=== PATIENT | female | born 1935 | race Caucasian/White ===

== ENCOUNTER 2023-09-20 10:28 | Emergency (ER) | payer MEDICARE, SELFPAY ==
[2023-09-20 10:35] VITALS: BP 144/99; PULSE 89; O2SAT 97
--- NOTE | 2023-09-20 10:37 | XR_ITS ---
FINAL REPORT CLINICAL HISTORY: Fall COMPARISON: None FINDINGS: No acute pulmonary opacity is present. There is no evidence of effusion or pneumothorax. Mediastinum is unremarkable. Heart size is normal. IMPRESSION: No acute abnormality. Reviewed, Interpreted and Dictated by Everette Nieves MD Transcribed by Ellen Dickerson Authenticated and [facility]
--- NOTE | 2023-09-20 10:37 | CT_ITS ---
FINAL REPORT TECHNIQUE: Axial images through the pelvis were performed by computed tomography. Sagittal and coronal reconstruction images were performed. This study was performed with techniques to keep radiation doses as low as reasonably achievable (ALARA). Individualized dose reduction techniques using automated exposure control or adjustment of mA and/or kV according to the patient's size were employed. CLINICAL HISTORY: Fall COMPARISON: None FINDINGS: CT PELVIS: No evidence of fracture is seen. There is mild degenerative change present in the hips bilaterally as well as in the sacroiliac joints. There are bilateral adnexal masses, larger on the left side than the right side. The left sided mass has a hyperdense component, measuring 6.7 x 3.8 cm in size. Would suggest follow-up with nonurgent ultrasound of the pelvis for further evaluation. IMPRESSION: No acute bony abnormality is identified. Bilateral adnexal masses as described, suggest follow-up with nonemergent ultrasound of the pelvis for further evaluation. Reviewed, Interpreted and Dictated by Everette Nivees MD Transcribed by Ellen Dickerson Authenticated and . [facility]
--- NOTE | 2023-09-20 10:37 | CT_ITS ---
FINAL REPORT TECHNIQUE: Axial images through the head/brain was performed by computed tomography. Sagittal and coronal reformatted images were obtained and reviewed. This study was performed with techniques to keep radiation doses as low as reasonably achievable (ALARA). Individualized dose reduction techniques using automated exposure control or adjustment of mA and/or kV according to the patient's size were employed. CLINICAL HISTORY: Fall FINDINGS: Moderate atrophy and chronic ischemic white matter changes are noted. No cortical edema is present. There is no mass or hemorrhage. Ventricles are normal. Bone windows show no skull fracture or obvious obstructive lesion. IMPRESSION: 1. No acute intracranial abnormality or obvious mass. 2. Atrophy and chronic ischemic white matter changes as above. Reviewed, Interpreted and Dictated by Everette Nieves MD Transcribed by Trena Phelps Authenticated and [facility]
--- NOTE | 2023-09-20 10:37 | XR_ITS ---
FINAL REPORT CLINICAL HISTORY: Fall COMPARISON: None FINDINGS: PELVIS: A single AP view of the pelvis fails to reveal any evidence of acute fracture or dislocation. There is mild degenerative change in the sacroiliac and bilateral hip joints. There is advanced degenerative change in the lower lumbar spine. IMPRESSION: No acute bony abnormality identified. Degenerative change as described. Reviewed, Interpreted and Dictated by Everette Nieves MD Transcribed by Ellen Dickerson Authenticated and [facility]
--- NOTE | 2023-09-20 10:37 | CT_ITS ---
FINAL REPORT TECHNIQUE: Thin section axial CT with sagittal reconstruction without contrast CLINICAL HISTORY: Fall COMPARISON: None FINDINGS: No fracture is seen. There is subluxation of C2 on C3 of approximately 3 mm. There is also subluxation of C7 on T1 of 4 mm. There is advanced degenerative disc disease present. No obvious bony spinal canal stenosis is present. IMPRESSION: There is no evidence of fracture. There is mild subluxation of C2 on C3 and C7 on T1, favor degenerative. If concern for ligamentous injury would suggest an MR with contrast. Reviewed, Interpreted and Dictated by Everette Nieves MD Transcribed by Ellen Dickerson Authenticated and [facility]
[2023-09-20 10:40] VITALS: BP 144/99; PULSE 93; RESP 20; TEMP 37.1; O2SAT 97; BMI 25.7
--- NOTE | 2023-09-20 10:47 | ED_ITS ---
Discharge Plan Disposition Patient Disposition: Home, Self-Care Condition: Good Chief Complaint: Fall Referrals Follow up/Referrals: Provider,Referral, MD [Primary Care Provider] - See instructions Clinical Impressions Clinical Impression: Fall Instructions Patient Instructions: How to Prevent Falls Discharge ED Provider: Yasmany March General Adult HPI General Chief complaint: Fall Stated complaint: had a fall at home 09/19 pain in right hip Time Seen by Provider: 09/20/23 10:32 Mode of Arrival: Wheelchair Source of Information: Patient and Relative Limitations: No Limitations Description of Symptoms (Recalled from ER Triage Doc. by RN): Patient presents to ED with pain from a fall that happened yesterday. Patient states she slipped outside and fell onto her right side. Patient is c/o of pain in her right groin/hip area and shoulder. Patient states she did hit her head. Denies LOC or headache. History of Present Illness HPI narrative: Patient has a PMHx significant for CAD on Plavix who presents to the ED with complaints of fall. Patient notes that yesterday, she was on her way to [employer] for group [employer] when while walking outside while carrying a basket, patient slipped and fell. Patient notes that she landed directly onto the right side of her body, taking most of the impact on her right hip. Patient notes that she also hit the right side of her head on the ground, negative LOC. Patient was able to get up without difficulty, but over the past 24 hours has had progressively worsening right hip pain. No changes in mental status, headaches. Patient also notes that she had pain in her right shoulder, but has been fully functional and able to lift her arms without issues. Related Data Allergies Allergy/AdvReac Type Severity Reaction Status Date / Time codeine Allergy Verified 09/20/23 10:49 meperidine Allergy Verified 09/20/23 10:49 Penicillins AdvReac Verified 09/20/23 10:49 red dye AdvReac Verified 09/20/23 10:49 sulfacetamide AdvReac Verified 09/20/23 10:49 PFSH [facility] Disclaimer: The information contained in this section may have been updated after the patient was seen, as this information can be updated by other users. Social History Smoking Status: Never smoker alcohol intake: never current occupational status: retired Travel in the last 8 weeks: None ROS Obtained: Yes All systems reviewed & no additional complaints except as documented Physical Exam General General appearance: alert and in no apparent distress Head Head exam: atraumatic, normocephalic and normal inspection Eye Eye exam: Present normal appearance, PERRL and EOMI; Absent scleral icterus or nystagmus ENT ENT exam: Present normal exam, mucous membranes moist and normal external ear exam Neck Neck exam: Present normal inspection, full ROM and trachea midline Chest Chest inspection: Present normal inspection and symmetric chest wall rise; Absent tenderness Respiratory Respiratory exam: Present normal lung sounds bilaterally; Absent respiratory distress, wheezes or accessory muscle use Cardiovascular Cardiovascular exam: Present regular rate, normal rhythm and normal heart sounds Abdominal Exam Abdominal exam: Present soft; Absent distention, tenderness, guarding, rebound, rigidity, trauma, ascites or pulsatile mass Extremities Exam Extremities exam: Present normal inspection, full ROM and tenderness (TTP R hip) Back Exam Back exam: Present normal inspection and full ROM; Absent tenderness Neurological Exam Neurological exam: Present alert, oriented X3 and normal gait; Absent motor sensory deficit Psychiatric Psychiatric exam: Present normal affect and normal mood Skin Skin exam: Present warm, dry and normal color Medical Decision Making Medical Records Medical records reviewed: Yes I reviewed the patient's medical records. Fermín Inquiry Pt receiving controlled substance: No Vital Signs: 09/20/23 10:40 09/20/23 10:35 09/20/23 12:01 Temperature 98.7 F Temperature Source Oral Pulse Rate 89 69 Pulse Rate [Right Radial] 93 H Respiratory Rate 20 Blood Pressure 144/99 H 126/65 Blood Pressure [Right Arm] 144/99 H Blood Pressure Mean [Right Arm] 114 Blood Pressure Source [Right Arm] Automatic Cuff Blood Pressure Position [Right Arm] Supine 02 Sat by Pulse Oximetry 97 97 97 Oxygen Delivery Method Room Air Room Air Room Air Lab Data Lab results reviewed: Yes I reviewed the patient's lab results. Orders (Tests/Meds): ORDERS Category Date Time Status CT bony pelvis Stat Cat Scan 09/20/23 10:[address] cervical spine wo con Stat Cat Scan 09/20/23 10:[address] head/brain wo con Stat Cat Scan 09/20/23 10:37 Completed CXR --portable [XR chest portable] Stat Exams 09/20/23 10:37 Completed XR pelvis 1-2V Stat Exams 09/20/23 10:37 Completed Medical Decision Narrative: In summary, Patient has a PMHx significant for CAD on Plavix who presents to the ED with complaints of fall. Patient notes that yesterday, she was on her way to [employer] for group [employer]iliting when while walking outside while carrying a basket, patient slipped and fell. Patient notes that she landed directly onto the right side of her body, taking most of the impact on her right hip. Patient notes that she also hit the right side of her head on the ground, negative LOC. Patient was able to get up without difficulty, but over the past 24 hours has had progressively worsening right hip pain. No changes in mental status, headaches. Patient also notes that she had pain in her right shoulder, but has been fully functional and able to lift her arms without issues. Patient was afebrile, hemodynamically stable, in no respiratory distress, and nontoxic in appearance upon arrival and throughout the entire stay in the ED. Physical examination was unremarkable aside from mild tenderness palpation along the right hip, including lungs CTAB, normal cardiac auscultation, benign abdominal exam with no focal TTP, and no acute neurological deficit. The DDx includes, but is not limited to, acute traumatic intracranial injury, acute traumatic cervical injury, acute traumatic pelvic injury. All of these have been considered, however ruling out the most morbid conditions drove my clinical assessment and thus the following laboratory and/or radiographic evaluation was conducted to the appropriate extent based on history and physical examination. X-ray/CT/US studies independently reviewed and interpreted by myself and notable for: - Chest XR was unremarkable for any signs of an acute pulmonary process, including pneumonia, ARDS, pleural effusion, pulmonary edema, pneumothorax, or pneumomediastinum. No obvious osseous injuries. -Pelvic x-ray was negative for any acute osseous injury - CT Head: No acute intracranial hemorrhage or fracture - CT Cervical Spine: No acute fracture or malalignment of the cervical spine. - CT bony pelvis was negative for any acute osseous injury of the pelvis At this time, given unremarkable workup and/or symptomatic relief, as well as the fact that patient continued to remain well-appearing, it was felt that the patient was safe to be discharged home. The patient/parents were comfortable and in agreement with this plan. Patient instructed to follow up with [employer]/PCP. The patient/parents were given strict return precautions prior to being discharged from the emergency department. All questions were answered. Yasmany March MD Emergency Medicine Critical Care Critical Care Time Critical Care Time: No
[2023-09-20 12:01] VITALS: BP 126/65; PULSE 69; O2SAT 97
[2023-09-20 13:00] VITALS: BP 127/57; PULSE 68; O2SAT 97
[2023-09-20 13:05] VITALS: BP 127/57; PULSE 67; RESP 18; TEMP 37.1; O2SAT 98
== END 2023-09-20 13:13 | disposition home or self-care (01) ==
PROVIDERS: Emergency Provider Emergency Medicine
DX: M25.551 Pain in right hip (principal); M25.512 Pain in left shoulder; R10.2 Pelvic and perineal pain; W01.0XXA Fall on same level from slipping, tripping and stumbling without subsequent striking against object, initial encounter
CPT/HCPCS: 70450; 71045; 72125; 72170; 72192; 99285

== ENCOUNTER 2024-01-16 09:21 | Emergency (ER) | payer MEDICARE, SELFPAY ==
--- NOTE | 2024-01-16 09:38 | XR_ITS ---
PROCEDURE INFORMATION: Exam: XR Chest Exam date and time: 01/16/2024 9:46 AM Age: 88 years old Clinical indication: Cough; Additional info: Cough, congestion TECHNIQUE: Imaging protocol: Radiologic exam of the chest. Views: 2 views. COMPARISON: CR XR CHEST PORTABLE 09/20/2023 10:59 AM FINDINGS: Lungs: Unremarkable. No consolidation. Pleural spaces: Unremarkable. No pleural effusion. No pneumothorax. Heart/Mediastinum: Unremarkable. No cardiomegaly. Bones/joints: Unremarkable. IMPRESSION: No acute findings.
[2024-01-16 09:45] VITALS: BP 136/89; PULSE 79; RESP 20; TEMP 36.6; O2SAT 98; BMI 26.2
--- NOTE | 2024-01-16 10:24 | EXP.UTC ---
Discharge Plan Disposition Patient Disposition: Home, Self-Care Condition: Good Prescriptions Prescriptions: New benzonatate 100 mg capsule 100 mg PO TID PRN (Reason: cough) Qty: 30 0RF guaifenesin [Mucinex] 600 mg tablet extended release 12hr 600 mg PO BID PRN (Reason: cough) Qty: 20 0RF prednisone 10 mg tablet 10 mg PO BID 5 Days Qty: 10 0RF doxycycline hyclate 100 mg capsule 100 mg PO BID 10 Days Qty: 20 0RF No Action fluconazole 100 mg tablet 100 mg PO DAILY atorvastatin 40 mg tablet 40 mg PO DAILY nystatin 100,000 unit/mL suspension 5 ml PO QID Patient Comments: SHAKE LIQUID AND TAKE 5 ML BY MOUTH FOUR TIMES DAILY FOR 10 DAYS. DISCARD REMAINDER cetirizine [Zyrtec] 10 mg Tablet 10 mg PO DAILY clopidogrel 75 mg tablet 75 mg PO DAILY amlodipine 5 mg tablet 5 mg PO DAILY pantoprazole 40 mg tablet,delayed release (DR/EC) 40 mg PO DAILY sertraline 25 mg tablet 25 mg PO DAILY mupirocin 2 % ointment 1 applic TOPICAL BID Patient Comments: APPLY TOPICALLY TO THE AFFECTED AREA TWICE DAILY NEEDED albuterol sulfate 90 mcg/actuation HFA aerosol inhaler 2 puff INHALATION Q4HP PRN (Reason: Wheezing) Patient Comments: INHALE 2 PUFFS BY MOUTH EVERY 4 HOURS NEEDED FOR WHEEZING OR SHORTNESS OF BREATH fluticasone propionate [Flovent HFA] 110 mcg/actuation HFA aerosol inhaler 1 puff INHALATION DAILY multivitamin Tablet 1 tab PO DAILY cyanocobalamin (vitamin B-12) [Vitamin B-12] 1,000 mcg Tablet 1,000 mcg PO DAILY fluticasone propionate [Flonase] 50 mcg/actuation [place],Suspension 1 spray INTRANASAL DAILY Rx Instructions: administer into each nostril albuterol sulfate 2.5 mg/0.5 mL Solution For Nebulization 2.5 mg INHALATION DAILYP PRN (Reason: SOA) Rx Instructions: for up to 3 doses cholecalciferol (vitamin D3) [Vitamin D3] 125 mcg (5,000 unit) Tablet 125 mcg PO WEEKLY Arnuity Ellipta 100 mcg/actuation blister with device 1 inh INHALATION DAILY Referrals Follow up/Referrals: Arin Contreras DO [Primary Care Provider] - See instructions Activity Restrictions/Add. Instructions Additional Instructions/Restrictions: Start antibiotic today. Be sure to complete entire prescription even if feeling better Monitor temp. Tylenol every 4 hours as needed and / or ibuprofen every 6 hours as needed ( As long as your primary care physician has told you that it ok to take both. For fever/aches/pains ER if no less than 101 despite Tylenol or Motrin Humidifier/vaporizer or hot steamy shower Inhaler every 4-6 hours as needed like we discussed. If unsure how to use it, ask pharmacist to demonstrate how. Should help open airways and improve cough, wheezing, and shortness of breath Mucinex during the day for your cough and cough suppressant only at night. Be sure to drink lots of water. *Tessalon Perles will not cause drowsiness but use at bedtime to help stop cough so that you may get some rest. *Start steroid today. Helps with inflammation therefore, cough and wheezing. Follow directions on the package. Reviewed side effects. Patient reports taking them before. Follow up IMMEDIATELY for new or worsening of symptoms OR no noticeable improvement over the next 48-72 hours. 911 immediately for any life threatening symptoms such as chest pain or difficulty breathing Clinical Impressions Clinical Impression: Bronchitis Sinusitis Qualifiers: Sinusitis location: unspecified location Chronicity: unspecified Qualified Code(s): J32.9 - Chronic sinusitis, unspecified Instructions Patient Instructions: DI for Sinusitis, Sinusitis, Acute Bronchitis Discharge ED Provider: Sasha [place] [facility] [place] General Stated complaint: cough, crackling whil breathing Mode of Arrival: Ambulatory Source of Information: Patient Limitations: No Limitations Time Seen by Provider: 01/16/24 10:30 Description of Symptoms (Recalled from Triage Doc. by RN): PATIENT C/O CONGESTION, PRODUCTIVE COUGH, AND FATIGUE X 3-4 WEEKS BUT HAS GOTTEN WORSE HEENT Symptoms (Recalled from RN notes): Yes Resp Symptoms (Recalled from RN notes): Yes Skin Symptoms (Recalled from RN notes): No MS Symptoms (Recalled from RN notes): No Functional Status (Recalled from RN notes): WNL History of Present Illness Provider Complaint: Daughter states that she has had a bad deep cough for several weeks and she has a hx of pneumonia States that she went to urgent care last week and they treated her for thrush but didnt do anything about her cough or chest congestion and it has not got any better her cough is sounding worse so today they brought her in to get her checked Related Data Home Medications Medication Instructions Recorded Confirmed albuterol sulfate 2.5 mg/0.5 mL 2.5 mg inhalation DAILYP PRN SOA 01/16/24 01/16/24 solution for nebulization albuterol sulfate 90 mcg/actuation 2 puff inhalation Q4HP PRN Wheezing 01/16/24 01/16/24 aerosol inhaler amlodipine 5 mg tablet 5 mg PO DAILY 01/16/24 01/16/24 atorvastatin 40 mg tablet 40 mg PO DAILY 01/16/24 01/16/24 cetirizine 10 mg tablet (Zyrtec) 10 mg PO DAILY 01/16/24 01/16/24 cholecalciferol (vitamin D3) 125 125 mcg PO WEEKLY 01/16/24 01/16/24 mcg (5,000 unit) tablet (Vitamin D3) clopidogrel 75 mg tablet 75 mg PO DAILY 01/16/24 01/16/24 cyanocobalamin (vitamin B-12) 1,000 mcg PO DAILY 01/16/24 01/16/24 1,000 mcg tablet (Vitamin B-12) fluconazole 100 mg tablet 100 mg PO DAILY 01/16/24 01/16/24 fluticasone furoate 100 1 inh inhalation DAILY 01/16/24 01/16/24 mcg/actuation blister powder for inhalation (Arnuity Ellipta) fluticasone propionate 110 1 puff inhalation DAILY 01/16/24 01/16/24 mcg/actuation HFA aerosol inhaler fluticasone propionate 50 1 spray intranasal DAILY 01/16/24 01/16/24 mcg/actuation nasal spray,suspension multivitamin 1 tab PO DAILY 01/16/24 01/16/24 mupirocin 2 % topical ointment 1 applic topical BID 01/16/24 01/16/24 nystatin 100,000 unit/mL oral 5 ml PO QID 01/16/24 01/16/24 suspension pantoprazole 40 mg tablet,delayed 40 mg PO DAILY 01/16/24 01/16/24 release sertraline 25 mg tablet 25 mg PO DAILY 01/16/24 01/16/24 Previous Rx's Medication Instructions Recorded benzonatate 100 mg capsule 100 mg PO TID PRN cough #30 caps 01/16/24 doxycycline hyclate 100 mg capsule 100 mg PO BID 10 days #20 caps 01/16/24 guaifenesin 600 mg tablet, 600 mg PO BID PRN cough #20 tabs 01/16/24 extended release 12 hr (Mucinex) prednisone 10 mg tablet 10 mg PO BID 5 days #10 tabs 01/16/24 Allergies Allergy/AdvReac Type Severity Reaction Status Date / Time codeine Allergy Verified 09/20/23 10:49 meperidine Allergy Verified 09/20/23 10:49 Penicillins AdvReac Verified 09/20/23 10:49 red dye AdvReac Verified 09/20/23 10:49 sulfacetamide AdvReac Verified 09/20/23 10:49 Worker's Comp Is this a Worker's Comp case?: No [facility] Disclaimer: The information contained in this section may have been updated after the patient was seen, as this information can be updated by other users. Medical History (Updated 01/16/24 @ 11:05 by Sasha Carey APRN) Anxiety Urinary tract infection History of gastroesophageal reflux (GERD) Migraine History of anemia Asthma History of heart attack Hyperlipidemia Hypertension Social History (Updated 09/20/23 @ 13:05 by Yasmany March MD) Smoking Status: Never smoker alcohol intake: never current occupational status: retired Travel in the last 8 weeks: None ROS Obtained: Yes All systems reviewed & no additional complaints except as documented and Yes Systems reviewed as appropriate & no additional complaints except as documented Constitutional Constitutional: Reports system reviewed and no additional complaints, except as documented, Reports as per HPI, Reports fatigue and Reports headache(s) ENT Ears, Nose, Mouth, and Throat: Reports system reviewed and no additional complaints, except as documented, Reports as per HPI, Reports headache(s), Reports nasal congestion and Reports sinus pressure Cardiovascular Cardiovascular: Reports system reviewed and no additional complaints, except as documented and Reports as per HPI Respiratory Respiratory: Reports system reviewed and no additional complaints, except as documented, Reports as per HPI, Denies shortness of breath, Reports chest congestion and Reports cough Gastrointestinal Gastrointestingal: Reports system reviewed and no additional complaints, except as documented and as per HPI Neurologic Neurologic: Reports headache(s) Endocrine Endocrine: Reports fatigue Physical Exam General General appearance: alert and in no apparent distress ENT ENT exam: Present mucous membranes moist Expanded ENT Exam Nose exam: Present sinus tenderness Respiratory Respiratory exam: Present normal lung sounds bilaterally and other (mild rhonchi right clears with cough); Absent respiratory distress or wheezes Cardiovascular Cardiovascular exam: Present regular rate, normal rhythm and normal heart sounds Neurological Exam Neurological exam: Present alert, oriented X3 and motor sensory deficit Medical Decision Making Fermín Inquiry Pt receiving controlled substance: No Fermín was queried for this patient: No Vital Signs: 01/16/24 09:45 Temperature 97.9 F Temperature Source Oral Pulse Rate [Left Brachial] 79 Respiratory Rate 20 Blood Pressure [Left Arm] 136/89 Blood Pressure Mean [Left Arm] 104 Blood Pressure Source [Left Arm] Automatic Cuff Blood Pressure Position [Left Arm] Sitting 02 Sat by Pulse Oximetry 98 Oxygen Delivery Method Room Air Orders (Tests/Meds): ORDERS Category Date Time Status Chest XR 2 view (NOT portable) [XR chest 2V] Stat Exams 01/16/24 09:38 Taken Radiology Data #1: Image(s): Chest Image Reviewed: Yes I have reviewed radiologist's interpretation FINDINGS: Lungs: Unremarkable. No consolidation. Pleural spaces: Unremarkable. No pleural effusion. No pneumothorax. Heart/Mediastinum: Unremarkable. No cardiomegaly. Bones/joints: Unremarkable. IMPRESSION: No acute findings. Medical Decision Narrative: Patient states that she has taken doxy and prednisone in the past without complications or reactions
[2024-01-16 11:09] VITALS: BP 136/89; PULSE 79; RESP 20; TEMP 36.6; O2SAT 98
== END 2024-01-16 11:12 | disposition home or self-care (01) ==
PROVIDERS: Emergency Provider Nurse Practitioner; PCP Internal Medicine
DX: J20.9 Acute bronchitis, unspecified (principal); J01.90 Acute sinusitis, unspecified; R06.89 Other abnormalities of breathing; R05.9 Cough, unspecified; R53.83 Other fatigue
CPT/HCPCS: 71046; 99204; 99212; G0463

== ENCOUNTER 2024-04-07 11:35 | Emergency (ER) | payer MEDICARE, SELFPAY ==
[2024-04-07] VITALS (7 sets, daily range): BP systolic 123–146; BP diastolic 59–66; PULSE 75–81; RESP 14–23; TEMP 36.6–36.9; O2SAT 96–98; BMI 26.2
--- NOTE | 2024-04-07 11:33 | ECG_ITS ---
APPROVED REPORT Exam: Resting ECG HR:76 bpm ECG Measurements Heart Rate 76 AXES SC 153 P 47 QRSd 77 QRS 3 QT 362 T 18 QTc 392 Conclusion SINUS RHYTHM ANTERIOR MYOCARDIAL INFARCTION , OF INDETERMINATE AGE [40+ ms Q WAVE AND/OR ST/T ABNORMALITY IN V3/V4] ABNORMAL ECG Electronically signed by : LUCY RODRIGUEZ, 04/07/2024 15:38:57
--- NOTE | 2024-04-07 11:39 | HMH.EDGENADL ---
Discharge Plan Disposition Patient Disposition: Home, Self-Care Condition: Good Prescriptions Prescriptions: New cefdinir 300 mg capsule 300 mg PO BID 10 Days Qty: 20 0RF No Action fluconazole 100 mg tablet 100 mg PO DAILY atorvastatin 40 mg tablet 40 mg PO DAILY nystatin 100,000 unit/mL suspension 5 ml PO QID Patient Comments: SHAKE LIQUID AND TAKE 5 ML BY MOUTH FOUR TIMES DAILY FOR 10 DAYS. DISCARD REMAINDER cetirizine [Zyrtec] 10 mg Tablet 10 mg PO DAILY clopidogrel 75 mg tablet 75 mg PO DAILY amlodipine 5 mg tablet 5 mg PO DAILY pantoprazole 40 mg tablet,delayed release (DR/EC) 40 mg PO DAILY sertraline 25 mg tablet 25 mg PO DAILY mupirocin 2 % ointment 1 applic TOPICAL BID Patient Comments: APPLY TOPICALLY TO THE AFFECTED AREA TWICE DAILY NEEDED albuterol sulfate 90 mcg/actuation HFA aerosol inhaler 2 puff INHALATION Q4HP PRN (Reason: Wheezing) Patient Comments: INHALE 2 PUFFS BY MOUTH EVERY 4 HOURS NEEDED FOR WHEEZING OR SHORTNESS OF BREATH fluticasone propionate [Flovent HFA] 110 mcg/actuation HFA aerosol inhaler 1 puff INHALATION DAILY multivitamin Tablet 1 tab PO DAILY cyanocobalamin (vitamin B-12) [Vitamin B-12] 1,000 mcg Tablet 1,000 mcg PO DAILY fluticasone propionate [Flonase] 50 mcg/actuation [place],Suspension 1 spray INTRANASAL DAILY Rx Instructions: administer into each nostril albuterol sulfate 2.5 mg/0.5 mL Solution For Nebulization 2.5 mg INHALATION DAILYP PRN (Reason: SOA) Rx Instructions: for up to 3 doses cholecalciferol (vitamin D3) [Vitamin D3] 125 mcg (5,000 unit) Tablet 125 mcg PO WEEKLY Arnuity Ellipta 100 mcg/actuation blister with device 1 inh INHALATION DAILY benzonatate 100 mg capsule 100 mg PO TID PRN (Reason: cough) Qty: 30 0RF guaifenesin [Mucinex] 600 mg tablet extended release 12hr 600 mg PO BID PRN (Reason: cough) Qty: 20 0RF prednisone 10 mg tablet 10 mg PO BID 5 Days Qty: 10 0RF doxycycline hyclate 100 mg capsule 100 mg PO BID 10 Days Qty: 20 0RF Activity Restrictions/Add. Instructions Additional Instructions/Restrictions: As we discussed, your workup today is reassuring in regard to any concerns for acute heart issues. Your urinalysis did show a significant amount of bacteria and other signs of infection, given that your pain was on your side, and you have ongoing urinary issues, I have prescribed an antibiotic. Please follow-up with your primary care doctor. Please return with any new or worsening symptoms. Clinical Impressions Clinical Impression: Cystitis Print Language Print Language: Amharic Discharge ED Provider: Cl Nguyen Adult HPI General Chief complaint: Chest Pain Stated complaint: chest pain Time Seen by Provider: 04/07/24 11:39 History of Present Illness HPI narrative: The patient presents with a chief complaint of severe pain upon waking up, moving from the abdomen to the chest, with associated pressure. She is a female with a history of a heart attack on August 18, 2021, and subsequent stent placement. She reports waking up at 5:30 AM with severe pain that began when she turned over. The pain initially felt like gas but then moved up and was associated with pressure. The pain has been constant since then, but has recently improved. The patient has experienced recent nausea after taking her morning medications but denies any vomiting. She has not noticed any factors that make the pain better or worse. The patient has been able to urinate without pain and denies any history of kidney stones. She reports tenderness upon palpation of the chest wall and pain with deep breaths. The patient has a history of asthma but does not regularly use oxygen. She denies any recent illness, fever, or injury from stretching. She is currently on blood thinners, blood pressure medications, asthma medications, and statins, and has allergies to sulfa, penicillin, and red dye. Please note that above description of symptoms, in this electronic medical record under categorization of recalled from ER triage doctor by RN are reflective of an initial nursing assessment, however, is not reflective of my full history and physical exam that was personally taken and clarified. Consequentially, this preceding description of symptoms, which may include the patient's categorized chief complaint in the EMR, do not reflect my personal clinical impression, and the ultimate description of history of present illness and patient stated complaints should be deferred to this section of the note. Unless stated otherwise or congruent with this section of the note, additional signs, symptoms, or incongruence should be interpreted as inaccurate with my clinical impression. Related Data Home Medications ?Medication ?Instructions ?Recorded ?Confirmed albuterol sulfate 2.5 mg/0.5 mL 2.5 mg inhalation DAILYP PRN SOA 01/16/24 01/16/24 solution for nebulization albuterol sulfate 90 mcg/actuation 2 puff inhalation Q4HP PRN Wheezing 01/16/24 01/16/24 aerosol inhaler amlodipine 5 mg tablet 5 mg PO DAILY 01/16/24 01/16/24 atorvastatin 40 mg tablet 40 mg PO DAILY 01/16/24 01/16/24 cetirizine 10 mg tablet (Zyrtec) 10 mg PO DAILY 01/16/24 01/16/24 cholecalciferol (vitamin D3) 125 125 mcg PO WEEKLY 01/16/24 01/16/24 mcg (5,000 unit) tablet (Vitamin D3) clopidogrel 75 mg tablet 75 mg PO DAILY 01/16/24 01/16/24 cyanocobalamin (vitamin B-12) 1,000 mcg PO DAILY 01/16/24 01/16/24 1,000 mcg tablet (Vitamin B-12) fluconazole 100 mg tablet 100 mg PO DAILY 01/16/24 01/16/24 fluticasone furoate 100 1 inh inhalation DAILY 01/16/24 01/16/24 mcg/actuation blister powder for inhalation (Arnuity Ellipta) fluticasone propionate 110 1 puff inhalation DAILY 01/16/24 01/16/24 mcg/actuation HFA aerosol inhaler fluticasone propionate 50 1 spray intranasal DAILY 01/16/24 01/16/24 mcg/actuation nasal spray,suspension multivitamin 1 tab PO DAILY 01/16/24 01/16/24 mupirocin 2 % topical ointment 1 applic topical BID 01/16/24 01/16/24 nystatin 100,000 unit/mL oral 5 ml PO QID 01/16/24 01/16/24 suspension pantoprazole 40 mg tablet,delayed 40 mg PO DAILY 01/16/24 01/16/24 release sertraline 25 mg tablet 25 mg PO DAILY 01/16/24 01/16/24 Previous Rx's ?Medication ?Instructions ?Recorded benzonatate 100 mg capsule 100 mg PO TID PRN cough #30 caps 01/16/24 doxycycline hyclate 100 mg capsule 100 mg PO BID 10 days #20 caps 01/16/24 guaifenesin 600 mg tablet, 600 mg PO BID PRN cough #20 tabs 01/16/24 extended release 12 hr (Mucinex) prednisone 10 mg tablet 10 mg PO BID 5 days #10 tabs 01/16/24 cefdinir 300 mg capsule 300 mg PO BID 10 days #20 caps 04/07/24 Allergies Allergy/AdvReac Type Severity Reaction Status Date / Time codeine Allergy Verified 04/07/24 11:46 meperidine Allergy Verified 04/07/24 11:46 Penicillins AdvReac Mild Verified 04/07/24 11:46 sulfacetamide AdvReac Mild Verified 04/07/24 11:46 red dye AdvReac Verified 04/07/24 11:46 PFSH PFSH Disclaimer: The information contained in this section may have been updated after the patient was seen, as this information can be updated by other users. Medical History (Updated 04/07/24 @ 15:07 by Cl Nguyen MD) Anxiety Urinary tract infection History of gastroesophageal reflux (GERD) Migraine History of anemia Asthma History of heart attack Hyperlipidemia Hypertension Social History (Updated 09/20/23 @ 13:05 by Yasmany March MD) Smoking Status: Never smoker alcohol intake: never current occupational status: retired Travel in the last 8 weeks: None ROS Obtained: Yes other As per HPI Physical Exam General General appearance: alert and in no apparent distress Head Head exam: atraumatic and normocephalic Eye Eye exam: Present normal appearance Neck Neck exam: Present normal inspection Chest Chest inspection: Present normal inspection and symmetric chest wall rise Respiratory Respiratory exam: Present normal lung sounds bilaterally; Absent respiratory distress Cardiovascular Cardiovascular exam: Present regular rate and normal rhythm Abdominal Exam Abdominal exam: Present soft Neurological Exam Neurological exam: Present alert and oriented X3 Psychiatric Psychiatric exam: Present normal affect and normal mood Skin Skin exam: Present warm and dry Other Other exam information: Left-sided thoracic tenderness to palpation, no abdominal tenderness, no CVA tenderness, reproducible sternal chest wall tenderness to palpation. Medical Decision Making Medical Records Medical records reviewed: Yes I reviewed the patient's medical records. [place] Inquiry Pt receiving controlled substance: No Vital Signs: 04/07/24 11:36 04/07/24 12:00 04/07/24 13:01 Temperature 98.4 F Temperature Source Oral Pulse Rate 77 77 Pulse Rate [Left] 75 Respiratory Rate 14 23 16 Blood Pressure 127/59 L 142/66 H Blood Pressure [Right Arm] 123/66 Blood Pressure Mean [Right Arm] 85 Blood Pressure Source [Right Arm] Automatic Cuff Blood Pressure Position [Right Arm] Sitting 02 Sat by Pulse Oximetry 98 97 97 Oxygen Delivery Method Room Air 04/07/24 13:30 04/07/24 14:11 04/07/24 15:19 Temperature 97.9 F Temperature Source Pulse Rate 79 81 81 Pulse Rate [Left] Respiratory Rate 22 15 15 Blood Pressure 143/66 H 146/60 H 146/60 H Blood Pressure [Right Arm] Blood Pressure Mean [Right Arm] Blood Pressure Source [Right Arm] Blood Pressure Position [Right Arm] 02 Sat by Pulse Oximetry 96 97 Oxygen Delivery Method 04/07/24 15:21 Temperature 97.9 F Temperature Source Pulse Rate 79 Pulse Rate [Left] Respiratory Rate 17 Blood Pressure 144/63 H Blood Pressure [Right Arm] Blood Pressure Mean [Right Arm] Blood Pressure Source [Right Arm] Blood Pressure Position [Right Arm] 02 Sat by Pulse Oximetry Oxygen Delivery Method Lab Data Lab Results 04/07/24 11:34: WBC 10.1, RBC 3.62 L, Hgb 11.3 L, Hct 35.0 L, MCV 96.8, MCH 31.1, MCHC 32.2, RDW 15.8, Plt Count 196, MPV 10.4, Neut % (Auto) 74.4, Lymph % (Auto) 19.2, [place] % (Auto) 4.0, Eos % (Auto) 2.0, Baso % (Auto) 0.4, Neut # (Auto) 7.5, Lymph # (Auto) 1.9, [place] # (Auto) 0.4, Eos # (Auto) 0.2, Baso # (Auto) 0.0, Sodium 138, Potassium 4.3, Chloride 108 H, Carbon Dioxide 24, Anion Gap 10.3, BUN 28 H, Creatinine 1.00, Estimated Creat Clear 37, Estimated GFR 52 L, Est GFR ( Amer) 63, Glucose 105 H, Calcium 8.6, Total Bilirubin 0.7, AST 24, ALT 18, Alkaline Phosphatase 88, Troponin I < 0.01, NT-Pro-B Natriuret Pep 621 H, Total Protein 5.8 L, Albumin 3.9, Globulin 1.9, Albumin/Globulin Ratio 2.1 H, Lipase 37 04/07/24 12:37: SARS-CoV-2 (PCR) Not detected, Influenza A Untype (PCR) Not detected, Influenza Type B (PCR) Not detected 04/07/24 14:03: Urine Color Yellow, Urine Appearance Clear, Urine pH 6.0, Ur Specific [place] 1.020, Urine Protein Negative, Urine Glucose (UA) Negative, Urine Ketones Negative, Urine Blood Trace-i, Urine Nitrate Positive, Urine Bilirubin Negative, Urine Urobilinogen 0.2, Ur Leukocyte Esterase 2+ A, Urine RBC None, Urine WBC 10-20, Urine Bacteria 2+ 04/07/24 14:10: Troponin I < 0.01 04/07/24 11:34 04/07/24 11:34 Orders (Tests/Meds): ORDERS Category Date Time Status XR chest portable Stat Exams 04/07/24 12:00 Completed BNP [NT Pro Brain Natriuretic Pep.] Stat Lab 04/07/24 11:34 Completed CBC w/Auto Diff [Complete Blood Count Auto Diff] Stat Lab 04/07/24 11:34 Completed CMP [Comprehensive Metabolic Panel] Stat Lab 04/07/24 11:34 Completed Lipase Stat Lab 04/07/24 11:34 Completed Rapid PCR Covid and Flu A/B Stat Lab 04/07/24 12:37 Completed Troponin I Q3H Lab 04/07/24 11:34 Completed Troponin I Q3H Lab 04/07/24 14:10 Completed Urinalysis and Microscopic Stat Lab 04/07/24 14:03 Completed Urine Culture Stat Micro 04/07/24 14:03 Received HEART Score History (anamnesis): Slightly suspicious ECG: Non-specific disturbance Age: >65 years Risk factors: Atherosclerosis history Troponin: </= normal limit HEART Score: 5 Medical Decision Narrative: Patient with history and exam per above presenting for evaluation of chest pain, left-sided thoracic pain Diagnoses considered include ACS, costochondritis, CHF exacerbation, pneumonia, pyelonephritis, no clinical evidence to suggest acute abdominal surgical pathology at this time. ED workup and treatment included: ORDERS Category Date Time Status XR chest portable Stat Exams 04/07/24 12:00 Completed BNP [NT Pro Brain Natriuretic Pep.] Stat Lab 04/07/24 11:34 Completed CBC w/Auto Diff [Complete Blood Count Auto Diff] Stat Lab 04/07/24 11:34 Completed CMP [Comprehensive Metabolic Panel] Stat Lab 04/07/24 11:34 Completed Lipase Stat Lab 04/07/24 11:34 Completed Rapid PCR Covid and Flu A/B Stat Lab 04/07/24 12:37 Completed Troponin I Q3H Lab 04/07/24 11:34 Completed Troponin I Q3H Lab 04/07/24 14:10 Completed Urinalysis and Microscopic Stat Lab 04/07/24 14:03 Completed Urine Culture Stat Micro 04/07/24 14:03 Received Labs were independently interpreted by me, significant for hematuria, pyuria, troponins within normal limits x 2, white blood cell count 10.1 Imaging was independently visualized and interpreted by me, significant for no acute findings Please refer to radiology report for full details. My clinical impression at this time is most consistent with chest wall pain, possible component of referred pain from pyelonephritis based on findings and urinalysis. I discussed at length with patient and family member at bedside for clinical impression, patient denies any significant dysuria but has chronic frequency, possible component of increase in frequency. After discussion of risks and benefits, we will elect to treat with antibiotic at this time, patient will follow-up with primary care provider, return with any new or worsening symptoms. I discussed my clinical impression with patient and answered all questions. At this time, the evidence for any other entities in the differential is insufficient to warrant any further testing or ED observation. This was explained to the patient. The patient was advised that persistent or worsening symptoms require further evaluation. I confirmed the patient's understanding of this discussion. Critical Care Critical Care Time Critical Care Time: No
--- NOTE | 2024-04-07 11:56 | PC.NURSE ---
Dr. Nguyen at BS for pt eval
--- NOTE | 2024-04-07 12:00 | XR_ITS ---
PROCEDURE INFORMATION: Exam: XR Chest Exam date and time: 04/07/2024 12:09 PM Age: 88 years old Clinical indication: Chest wall pain; Additional info: L sided chest wall pain, HX of heart attack TECHNIQUE: Imaging protocol: Radiologic exam of the chest. Views: 1 view. COMPARISON: CR XR CHEST 2V 01/16/2024 9:46 AM FINDINGS: Lungs: Unremarkable. No consolidation. Pleural spaces: Unremarkable. No pleural effusion. No pneumothorax. Heart/Mediastinum: Unremarkable. No cardiomegaly. Bones/joints: Unremarkable. IMPRESSION: No acute findings.
[2024-04-07 12:15] LABS: Basophils % 0.4 % (0.1-2.0); Eosinophils # 0.2 K/mm3 (0.0-0.4); Hemoglobin 11.3 g/dL (12.2-16.2); Lymphocytes # 1.9 K/mm3 (0.7-4.5); Lymphocytes % 19.2 % (10-50); Mean Corpuscular HGB Conc 32.2 g/dL (31.8-35.4); Mean Corpuscular Hemoglobin 31.1 pg (27.0-31.2); Mean Corpuscular Volume 96.8 fl (81-99); Mean Platelet Volume 10.4 fl (7.4-10.4); Monocytes # 0.4 K/mm3 (0.1-1.0); Neutrophils # 7.5 K/mm3 (1.8-7.8); Neutrophils % 74.4 % (37.0-80.0); Platelet Count 196 K/mm3 (142-424); Red Blood Count 3.62 M/mm3 (4.20-5.40); Red Cell Distribution Width 15.8 % (11.5-17.5); White Blood Count 10.1 K/mm3 (4.8-10.8)
--- NOTE | 2024-04-07 12:15 | PC.NURSE ---
RAD at BS
--- NOTE | 2024-04-07 12:30 | PC.NURSE ---
BLOOD REDRAWN AND SENT TO LAB
[2024-04-07 13:08] LABS: Albumin Level 3.9 g/dl (3.5-5.0); Chloride 108 mmol/L (98-107); Potassium 4.3 mmoL/L (3.5-5.1); Sodium 138 mmol/L (136-145)
[2024-04-07 13:10] LABS: Blood Urea Nitrogen 28 mg/dl (7-17); Lipase 37 U/L (23-300)
[2024-04-07 13:11] LABS: Alanine Aminotransferase 18 U/L (12-78); Albumin/Globulin Ratio 2.1 (1.1-1.8); Alkaline Phosphatase 88 U/L (38-126); Anion Gap 10.3 mEq/L (5-15); Aspartate Amino Transferase 24 U/L (14-36); Bilirubin,Total 0.7 mg/dl (0.2-1.3); Calcium 8.6 mg/dl (8.4-10.2); Carbon Dioxide 24 mmol/L (22.0-30.0); Creatinine Clearance Estimated 37 mL/min (50-200); Estimated Glomerular Filt Rate 52 ml/min (>60); GFR (African American) 63 ML/MIN (>60); Globulin 1.9 g/dL (1.3-3.2); Glucose 105 mg/dl (74-100); Total Protein,Serum 5.8 g/dl (6.3-8.2)
[2024-04-07 13:20] LABS: NT Pro Brain Natriuretic Pep. 621 pg/mL (0-450)
--- NOTE | 2024-04-07 13:26 | PC.NURSE ---
Rounded on pt. Pillow and blanket provided. Visitor remains at BS. Call light within reach.
[2024-04-07 13:37] LABS: Coronavirus 19, PCR Not Detected (NotDetected); Influenza A, PCR Not Detected (NotDetected); Influenza B, PCR Not Detected (NotDetected)
[2024-04-07 13:41] LABS: Troponin I < 0.01 ng/ml (0.00-0.034)
--- NOTE | 2024-04-07 14:03 | PC.NURSE ---
Pt ambulatory to bathroom with assistance from family
[2024-04-07 14:07] LABS: Microscopic, Urine URINE MICROSCOPIC (MICROSCOPIC)
[2024-04-07 14:12] LABS: Appearance,Urine CLEAR (Clear); Bilirubin,Urine Negative (Negative); Blood, Urine TRACE-I (Negative); Color,Urine YELLOW (Yellow); Glucose,Urine (UA) Negative (Negative); Ketones,Urine Negative (Negative); Leukocyte Esterase,Urine 2+ (Negative); Nitrate,Urine POSITIVE (Negative); Protein,Urine Negative (Negative); Urobilinogen,Urine 0.2 EU/dl (0.2)
[2024-04-07 14:21] LABS: Bacteria,Urine 2+ /lpf
[2024-04-07 14:52] LABS: Troponin I < 0.01 ng/ml (0.00-0.034)
--- NOTE | 2024-04-07 15:02 | PC.NURSE ---
Dr. Nguyen at BS to update pt/family on results and POC
--- NOTE | 2024-04-11 09:34 | PC.NURSE ---
reviewed urine culture with , pt dc with cefdinir, ntd
== END 2024-04-07 15:19 | disposition home or self-care (01) ==
PROVIDERS: Emergency Provider Emergency Medicine; PCP Internal Medicine
DX: N30.00 Acute cystitis without hematuria (principal); B95.2 Enterococcus as the cause of diseases classified elsewhere; R10.13 Epigastric pain; R07.1 Chest pain on breathing; K21.9 Gastro-esophageal reflux disease without esophagitis; I10 Essential (primary) hypertension; E78.5 Hyperlipidemia, unspecified
CPT/HCPCS: 71045; 80053; 81001; 83690; 83880; 84484; 85025; 87086; 87088; 87186; 87636; 93005; 99284

== ENCOUNTER 2024-12-17 12:12 | Emergency (ER) | payer MEDICARE, SELFPAY ==
[2024-12-17 12:21] VITALS: BP 159/63; PULSE 75; RESP 18; TEMP 36.7; O2SAT 96; BMI 25.7
--- NOTE | 2024-12-17 12:28 | XR_ITS ---
FINAL REPORT CLINICAL HISTORY: fall / landed on R amezcua / abrasion FINDINGS: RIGHT TIBIA/FIBULA 2 views were obtained. There is no acute fracture or dislocation. Joint spaces are preserved. No soft tissue abnormality is seen. Reviewed, Interpreted and Dictated by Paul Haley MD Transcribed by Dona Acosta Authenticated and [facility]
--- NOTE | 2024-12-17 12:28 | XR_ITS ---
FINAL REPORT CLINICAL HISTORY: fall lateral ankle pain FINDINGS: LEFT ANKLE Three views demonstrate no acute fracture or dislocation. The visualized joint spaces are normally aligned. The soft tissues are unremarkable. There are vascular calcifications probably related to underlying diabetes. IMPRESSION: No acute bony abnormality. Reviewed, Interpreted and Dictated by Paul Haley MD Transcribed by Dona Acosta Authenticated and [facility]
--- NOTE | 2024-12-17 12:28 | XR_ITS ---
FINAL REPORT CLINICAL HISTORY: Right ankle pain after a fall FINDINGS: RIGHT ANKLE 3 views of the right ankle were obtained. There is no acute fracture or dislocation. A small plantar spur is noted. The mortise is intact. Visualized joint spaces are normally aligned. Soft tissues are unremarkable. IMPRESSION: No acute bony abnormality. Reviewed, Interpreted and Dictated by Paul Haley MD Transcribed by Dona Acosta Authenticated and [facility]
--- NOTE | 2024-12-17 12:28 | XR_ITS ---
FINAL REPORT CLINICAL HISTORY: Left foot pain after a fall FINDINGS: LEFT FOOT Three views of the left foot demonstrate a transverse, nondisplaced fracture through the base of the fifth metatarsal. There is advanced joint space narrowing of the first metatarsophalangeal joint. There is a well-corticated ossific density lateral to the joint margin measuring 4 mm. The soft tissues are unremarkable. IMPRESSION: Acute, nondisplaced fracture through the base of the fifth metatarsal. Advanced changes of osteoarthritis. Reviewed, Interpreted and Dictated by Paul Haley MD Transcribed by Dona Acosta Authenticated and [facility]
--- NOTE | 2024-12-17 12:28 | XR_ITS ---
FINAL REPORT CLINICAL HISTORY: Right foot pain after a fall FINDINGS: RIGHT FOOT 3 views of the right foot were obtained. There is no acute fracture or dislocation. There are advanced hypertrophic changes of the right first MTP joint. Soft tissues are unremarkable. IMPRESSION: No acute bony abnormality. Advanced changes of osteoarthritis. Reviewed, Interpreted and Dictated by Paul Haley MD Transcribed by Dona Acosta Authenticated and [facility]
[2024-12-17] MEDS: ACETAMINOPHEN 500MG TAB 500 MG PO (12:40)
[2024-12-17 13:15] VITALS: BP 163/73; PULSE 67; O2SAT 98
[2024-12-17 13:18] LABS: Basophils # 0.1 K/mm3 (0-0.2); Basophils % 0.8 % (0.1-2.0); Eosinophils # 0.2 Kmm3 (0.0-0.4); Eosinophils % 3.4 % (0.1-12.0); Hematocrit 34.2 % (37.0-47.0); Hemoglobin 11.2 g/dL (12.2-16.2); Lymphocytes # 1.5 K/mm3 (0.7-4.5); Lymphocytes % 23.9 % (10-50); Mean Corpuscular HGB Conc 32.7 g/dL (31.8-35.4); Mean Corpuscular Hemoglobin 29.8 pg (27.0-31.2); Mean Platelet Volume 10.9 fl (7.4-10.4); Monocytes # 0.4 K/mm3 (0.1-1.0); Monocytes % 6.3 % (1.7-9.3); Neutrophils # 4.2 K/mm3 (1.8-7.8); Neutrophils % 65.3 % (37.0-80.0); Nucleated Red Blood Cells # 0 10^3/uL; Nucleated Red Blood Cells % 0 %; Platelet Count 147 K/mm3 (142-424); Red Blood Count 3.76 M/mm3 (4.20-5.40); Red Cell Distribution Width 14.1 % (11.5-17.5); Red Cell Distribution Width-SD 47.4 fL; White Blood Count 6.4 K/mm3 (4.8-10.8)
[2024-12-17 13:30] VITALS: BP 177/80; PULSE 71; O2SAT 99
[2024-12-17 13:30] LABS: Activated Partial Thrombo Time 27.9 seconds (22.8-30.6); INR 0.93 (0.9-1.1); Prothrombin Time 10.5 seconds (10.1-12.5)
[2024-12-17 13:38] LABS: Chloride 109 mmol/L (98-107); Sodium 140 mmol/L (136-145)
[2024-12-17 13:41] LABS: Blood Urea Nitrogen 30 mg/dl (7-17); Creatinine Clearance Estimated 33 mL/min (50-200); Estimated Glomerular Filt Rate 47 ml/min (>60); GFR (African American) 57 ML/MIN (>60)
[2024-12-17 13:42] LABS: Calcium 8.8 mg/dl (8.4-10.2); Carbon Dioxide 24 mmol/L (22.0-30.0); Glucose 96 mg/dl (74-100)
--- NOTE | 2024-12-17 13:47 | ED_ITS ---
<Statement entered by Chantel Mcneill DO - 12/17/24 14:10> I was consulted by the FRANK, and we discussed the complexity of the problems being addressed. I approved the treatment and management plan for this patient's care in the emergency department, thus performing a substantive portion of the medical decision making. I independently interpreted x-ray prior to radiology read and noted Alexander fracture Chantel Mcneill DO Discharge Plan Disposition Patient Disposition: Home, Self-Care Prescriptions Prescriptions: No Action atorvastatin 40 mg tablet 40 mg PO DAILY cetirizine [Zyrtec] 10 mg Tablet 10 mg PO DAILY clopidogrel 75 mg tablet 75 mg PO DAILY amlodipine 5 mg tablet 5 mg PO DAILY pantoprazole 40 mg tablet,delayed release (DR/EC) 40 mg PO DAILY sertraline 25 mg tablet 25 mg PO DAILY mupirocin 2 % ointment 1 applic TOPICAL BID Patient Comments: APPLY TOPICALLY TO THE AFFECTED AREA TWICE DAILY NEEDED albuterol sulfate 90 mcg/actuation HFA aerosol inhaler 2 puff INHALATION Q4HP PRN (Reason: Wheezing) Patient Comments: INHALE 2 PUFFS BY MOUTH EVERY 4 HOURS NEEDED FOR WHEEZING OR SHORTNESS OF BREATH fluticasone propionate [Flovent HFA] 110 mcg/actuation HFA aerosol inhaler 1 puff INHALATION DAILY multivitamin Tablet 1 tab PO DAILY fluticasone propionate [Flonase] 50 mcg/actuation [place],Suspension 1 spray INTRANASAL DAILY Rx Instructions: administer into each nostril albuterol sulfate 2.5 mg/0.5 mL Solution For Nebulization 2.5 mg INHALATION DAILYP PRN (Reason: SOA) Rx Instructions: for up to 3 doses cholecalciferol (vitamin D3) [Vitamin D3] 125 mcg (5,000 unit) Tablet 125 mcg PO WEEKLY Arnuity Ellipta 100 mcg/actuation blister with device 1 inh INHALATION DAILY Referrals Follow up/Referrals: Isaac Maya DO [Staff Physician] - See instructions Arin Contreras DO [Primary Care Provider] - See instructions Activity Restrictions/Add. Instructions Additional Instructions/Restrictions: Today you were evaluated in the emergency department and diagnosed with a left foot fracture. Please wear the walking boot and use the walker as directed until evaluated by orthopedics. Please call the number to make an appointment with orthopedics for follow-up. Please clean the wound on your right lower extremity with mild soap and water, after 24 hours, remove the dressing and keep open to air. Please return to the emergency department for any worsening of your condition. Clinical Impressions Clinical Impression: Skin tear Foot fracture, left Qualifiers: Encounter type: initial encounter Fracture type: closed Qualified Code(s): S 92.902A - Unspecified fracture of left foot, initial encounter for closed fracture Fall Qualifiers: Encounter type: initial encounter Qualified Code(s): W19.XXXA - Unspecified fall, initial encounter Instructions Patient Instructions: How to Prevent Falls Print Language Print Language: Icelandic Discharge ED Provider: Chantel Mcneill General Adult HPI General Chief complaint: Fall Stated complaint: AO fall 12/17 1150 cut on r leg ankle bruising Time Seen by Provider: 12/17/24 12:19 Mode of Arrival: Wheelchair Source of Information: Patient and Relative Description of Symptoms (Recalled from ER Triage Doc. by RN): Pt presents for evaluation of left ankle pain and right leg abrasions and laceration after tripping while walking up concrete steps. Pt did not hit her head, but is on plavix. pt is unsure if her t-dap is utd. History of Present Illness HPI narrative: Patient is an 89-year-old female PMHx significant CAD on Plavix, Hx of fall, who presents to the ED after a mechanical fall that occurred this morning. Patient states that she was walking upstairs when she tripped, injuring her left foot and right amezcua only. Related Data Home Medications ?Medication ?Instructions ?Recorded ?Confirmed albuterol sulfate 2.5 mg/0.5 mL 2.5 mg inhalation DAILYP PRN SOA 01/16/24 12/17/24 solution for nebulization albuterol sulfate 90 mcg/actuation 2 puff inhalation Q4HP PRN Wheezing 01/16/24 12/17/24 aerosol inhaler amlodipine 5 mg tablet 5 mg PO DAILY 01/16/24 12/17/24 atorvastatin 40 mg tablet 40 mg PO DAILY 01/16/24 12/17/24 cetirizine 10 mg tablet (Zyrtec) 10 mg PO DAILY 01/16/24 12/17/24 cholecalciferol (vitamin D3) 125 125 mcg PO WEEKLY 01/16/24 12/17/24 mcg (5,000 unit) tablet (Vitamin D3) clopidogrel 75 mg tablet 75 mg PO DAILY 01/16/24 12/17/24 fluticasone furoate 100 1 inh inhalation DAILY 01/16/24 12/17/24 mcg/actuation blister powder for inhalation (Arnuity Ellipta) fluticasone propionate 110 1 puff inhalation DAILY 01/16/24 12/17/24 mcg/actuation HFA aerosol inhaler fluticasone propionate 50 1 spray intranasal DAILY 01/16/24 12/17/24 mcg/actuation nasal spray,suspension multivitamin 1 tab PO DAILY 01/16/24 12/17/24 mupirocin 2 % topical ointment 1 applic topical BID 01/16/24 12/17/24 pantoprazole 40 mg tablet,delayed 40 mg PO DAILY 01/16/24 12/17/24 release sertraline 25 mg tablet 25 mg PO DAILY 01/16/24 12/17/24 Allergies Allergy/AdvReac Type Severity Reaction Status Date / Time codeine Allergy Other Verified 12/17/24 12:44 meperidine Allergy Other Verified 12/17/24 12:44 Penicillins AdvReac Mild Hives Verified 12/17/24 12:44 sulfacetamide AdvReac Mild Hives Verified 12/17/24 12:44 red dye AdvReac Rash Verified 12/17/24 12:44 PFSH PFSH Disclaimer: The information contained in this section may have been updated after the patient was seen, as this information can be updated by other users. Medical History (Updated 12/17/24 @ 13:47 by Marva Esclaante APRN) Anxiety Urinary tract infection History of gastroesophageal reflux (GERD) Migraine History of anemia Asthma History of heart attack Hyperlipidemia Hypertension Social History Smoking Status: Never smoker alcohol intake: never current occupational status: retired Travel in the last 8 weeks?: None Have you lived/traveled outside US in past 30 days?: No Contact w/someone who lives/traveled outside US past 30 days?: No Exposure to someone with infectious disease in past 14 days?: No Do you have a fever (greater than 100.4 F or 38 C)?: No Have you tested positive for COVID-19?: No Exposed to someone with COVID-19 in past 14 days?: No Do you have a sore throat?: No Do you have a cough?: No Do you have any weakness?: No Do you have any diarrhea?: No Are you experiencing any unusual bleeding?: No Do you have any muscle aches/pain?: No Do you have any abdominal pain?: No Are you experiencing loss of taste or smell?: No ROS Obtained: Yes Systems reviewed as appropriate & no additional complaints except as documented Physical Exam General General appearance: alert and in no apparent distress Head Head exam: atraumatic and normocephalic Eye Eye exam: Present normal appearance and PERRL ENT ENT exam: Present normal exam Neck Neck exam: Present normal inspection and full ROM; Absent tenderness Chest Chest inspection: Present normal inspection and symmetric chest wall rise; Absent tenderness Respiratory Respiratory exam: Present normal lung sounds bilaterally Cardiovascular Cardiovascular exam: Present regular rate Abdominal Exam Abdominal exam: Present soft and normal bowel sounds; Absent tenderness Extremities Exam Extremities exam: Present normal inspection, full ROM and tenderness (left lateral foot, right anterior amezcua (skin tear) ) Back Exam Back exam: Present normal inspection and full ROM; Absent tenderness or rashes Neurological Exam Neurological exam: Present alert and oriented X3 Psychiatric Psychiatric exam: Present normal affect and normal mood Skin Skin exam: Present warm and dry Medical Decision Making Medical Records Screening: Per USPSTF and CDC recommendations, given the prevalence of disease in our region, it is our hospital?s policy to screen for HIV and viral Hepatitis for all patients aged 18 and over and those with ongoing risk factors. [place] Inquiry Pt receiving controlled substance: No Vital Signs: 12/17/24 12:21 12/17/24 13:15 12/17/24 13:30 Temperature 98.0 F Temperature Source Oral Pulse Rate 67 71 Pulse Rate [Right] 75 Respiratory Rate 18 Blood Pressure 163/73 H 177/80 H Blood Pressure [Right Arm] 159/63 H Blood Pressure Mean [Right Arm] 95 Blood Pressure Source [Right Arm] Automatic Cuff Blood Pressure Position [Right Arm] Sitting 02 Sat by Pulse Oximetry 96 98 99 Oxygen Delivery Method Room Air 12/17/24 13:48 12/17/24 14:00 12/17/24 14:43 Temperature 98.2 F Temperature Source Pulse Rate 71 70 72 Pulse Rate [Right] Respiratory Rate 20 Blood Pressure 158/76 H 164/75 H 140/78 Blood Pressure [Right Arm] Blood Pressure Mean [Right Arm] Blood Pressure Source [Right Arm] Blood Pressure Position [Right Arm] 02 Sat by Pulse Oximetry 98 99 Oxygen Delivery Method Room Air Lab Data Lab Results 12/17/24 13:10: WBC 6.4, RBC 3.76 L, Hgb 11.2 L, Hct 34.2 L, MCV 91.0, MCH 29.8, MCHC 32.7, RDW 14.1, Plt Count 147, MPV 10.9 H, Neut % (Auto) 65.3, Lymph % (Auto) 23.9, [place] % (Auto) 6.3, Eos % (Auto) 3.4, Baso % (Auto) 0.8, Neut # (Auto) 4.2, Lymph # (Auto) 1.5, [place] # (Auto) 0.4, Eos # (Auto) 0.2, Baso # (Auto) 0.1, PT 10.5, INR 0.93, APTT 27.9, Sodium 140, Potassium 4.0, Chloride 109 H, Carbon Dioxide 24, Anion Gap 11.0, BUN 30 H, Creatinine 1.10 H, Estimated Creat Clear 33, Estimated GFR 47 L, Est GFR ( Amer) 57 L, Glucose 96, Calcium 8.8 12/17/24 13:10 12/17/24 13:10 Orders (Tests/Meds): ED MEDICATIONS Discontinued Medications Generic Name Dose Route Start Last Admin Trade Name Freq PRN Reason Stop Dose Admin Acetaminophen 500 mg 12/17/24 12:28 12/17/24 12:40 Acetaminophen 500mg Tab PO 12/17/24 12:29 500 mg ONCE ONE Administration ORDERS Category Date Time Status Ankle XR - Left minimum 3 Views [XR ankle LT min 3V] Exams 12/17/24 12:28 Completed Stat Ankle XR -Right minimum 3 Views [XR ankle RT min 3V] Exams 12/17/24 12:28 Completed Stat Foot XR left minimum 3 views [XR foot LT min 3V] Stat Exams 12/17/24 12:28 Completed Foot XR right minimum 3 views [XR foot RT min 3V] Stat Exams 12/17/24 12:28 Completed Tibia/fibula XR right 2 views [XR tibia fibula RT 2V] Exams 12/17/24 12:28 Completed Stat BMP [Basic Metabolic Panel] Stat Lab 12/17/24 13:10 Completed CBC w/Auto Diff [Complete Blood Count Auto Diff] Stat Lab 12/17/24 13:10 Completed PT/PTT Stat Lab 12/17/24 13:10 Completed Medical Decision Narrative: In summary, patient is an 89-year-old female PMHx significant CAD on Plavix, Hx of fall, who presents to the ED after a mechanical fall that occurred this morning. Patient states that she was walking upstairs when she tripped, injuring her left foot and right amezcua only. Patient states she does not hit her head, did not lose consciousness. Does not have any other injuries at this time. Patient reports the majority of her pain is on the lateral aspect of her left foot. Denies fever, chills, body aches, headache, visual disturbances, neck pain, chest pain, shortness of breath, abdominal pain, nausea, vomiting. Patient's tetanus is up-to-date per daughter. Upon initial evaluation patient is alert, oriented and cooperative. She is hemodynamically stable. Physical exam is remarkable for left foot lateral tenderness, mild left ankle tenderness. Patient has a large skin tear on the anterior right amezcua. Neurovascular status intact. Differential diagnosis include left foot fracture, dislocation, right tib-fib fracture, contusion, abrasion, skin tear, among others. Patient symptomatically managed with acetaminophen for pain. Right lower extremity skin tear was cleaned, flushed, wrapped with nonadherent dressing and Francisco wrap. Wound care instructions given. Formal reads reviewed, imaging of the left ankle unremarkable for any acute fracture. Imaging of the right ankle unremarkable for any acute bony abnormality. Right foot x-ray unremarkable for any acute bony abnormality, advanced changes of osteoarthritis. Left foot x-ray unremarkable for acute, nondisplaced fracture through the base of the fifth metatarsal, advanced changes of osteoarthritis. Imaging of the right tib-fib unremarkable for any acute fracture or dislocation. Upon reassessment, patient states that her pain is well-controlled. Given this, feel the patient is safe to be discharged home. Discussed with patient that due to age, we will not give her crutches due to fall risk. Will place her in a walking boot and provide a walker, discussed to try to be as nonweightbearing as possible on the left foot without risking further falls or injury. Advised her to call Dr. Maya for orthopedic follow-up. We discussed pain management with acetaminophen [id number] as directed. Discussed how to take care of skin tear on the right lower extremity. Discussed return precautions to the ED. Patient verbalized understanding and was able to demonstrate use of walking boot and walker in the ED. Critical Care Critical Care Time Critical Care Time: No
[2024-12-17 13:48] VITALS: BP 158/76; PULSE 71; O2SAT 98
--- NOTE | 2024-12-17 13:56 | CARE MANAGER ---
Patient will require the use of a rolling walker for safe ambulation, in which a cane would not provide enough support.
[2024-12-17 14:00] VITALS: BP 164/75; PULSE 70; O2SAT 99
--- NOTE | 2024-12-17 14:01 | SW/DCPLANNER ---
Addendum entered by Bela Brennan 12/17/24 14:33: Marisela moon/ [facility] stated that walker is being delivered to ED. Original Note: Patient information/order faxed to [facility] for a rolling walker. Patient will discharge home from ED.
[2024-12-17 14:43] VITALS: BP 140/78; PULSE 72; RESP 20; TEMP 36.8; O2SAT 99
== END 2024-12-17 14:44 | disposition home or self-care (01) ==
PROVIDERS: Nurse Practitioner; Emergency Provider Emergency Medicine; PCP Internal Medicine
DX: S92.355A Nondisplaced fracture of fifth metatarsal bone, left foot, initial encounter for closed fracture (principal); S81.801A Unspecified open wound, right lower leg, initial encounter; W10.8XXA Fall (on) (from) other stairs and steps, initial encounter; Z23 Encounter for immunization
CPT/HCPCS: 73590; 73610; 73630; 80048; 85025; 85610; 85730; 99284

== ENCOUNTER 2025-01-10 09:01 | Outpatient (CLI) | payer MEDICARE, SELFPAY ==
--- NOTE | 2025-01-10 09:04 | XR_ITS ---
FINAL REPORT CLINICAL HISTORY: lt foot pain, FALL 3 WEEKS AGO COMPARISON: 12/17/2024 FINDINGS: LEFT FOOT: Three views show a transverse nondisplaced fracture of the base of the fifth metatarsal. Osteopenia is present. There is osteoarthritic change of the first MTP joint. IMPRESSION: Transverse nondisplaced fracture of the base of the fifth metatarsal. Reviewed, Interpreted and Dictated by Everette Nieves MD Transcribed by Ellen Dickerson Authenticated and [facility]
== END 2025-01-10 23:59 | disposition home or self-care (01) ==
LOC: RAD 09:02
PROVIDERS: PCP Internal Medicine; Visit Provider Physician Assistant Surgical
DX: S92.352A Displaced fracture of fifth metatarsal bone, left foot, initial encounter for closed fracture (principal)
CPT/HCPCS: 73630

== ENCOUNTER 2025-01-31 08:20 | Outpatient (CLI) | payer MEDICARE, SELFPAY ==
--- OUTSIDE RECORDS SUMMARY | 2025-01-11 08:25 | XMS_ITS | Encounter Summary ---
Author Organization [facility] Address [address] [place] [address] Care Team Providers Care Delivery Analyst Name Role Phone Ben Arin Francois DO Primary Care Provider [phone] Brooklyn Olmedo MD Unavailable [phone] Encounter Details Date Type Department Care Team (Late st Contact Info) Description 01/11/2025 8:25 AM EDT Ancillary Procedure [facility] [address] [place] [phone] Social History Tobacco Use Types Packs/Day [...] place to sleep or slept in a custodial (including now)? No 09/21/2023 PHQ-9 Answer Date [...] any time in the past 12 m [facility], were you homeless or living in a custodial (including now)? No 09/02/2024 Utilities Answer Date Recorded In the past 12 months has th e [employer], gas, oil, or water [employer] threatened to shut off services in your [...] Description 02/28/2025 2:00 PM EDT Clinical Support [facility] Laboratory Services [address] [facility], 1st [place] [address] 03/14/2025 11:00 AM EDT Office Visit [facility] [address] [facility], [address] [place] [address] Harry Ashton MD [address] [facility] [address] [place] [address] 03/15/2025 10:00 AM EDT Office Visit [facility] Internal Medicine [address], [address] [place] [address] Arin Contreras, [address] [place] [address] 04/19/2025 12:45 PM EDT Procedure Visit [facility] [address] [facility] [place] [address] Ainsley Coreas MD [address] [facility] [address] [place] [address] 09/19/2025 1:40 PM EST Office Visit [facility] [place] Johnny [address] [facility] [place] [address] Sergio Sosa MD [address] [place] [id number] documented as of this encounter Procedures Procedure [...] documented as of this encounter Care Teams Delivery Analyst Relationship Specialty Start Date End Date Arin Contreras DO [address] [place] [address] PCP - General Internal Medicine 11/03/21 Brooklyn Olmedo MD [address] [place] [address] PCP - Resident Internal Medicine 03/08/23 02/18/25 documented as of this encounter
--- OUTSIDE RECORDS SUMMARY | 2025-01-11 14:30 | XMS_ITS | Encounter Summary ---
Author Organization [facility] Address [address] 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 Procedures MD AFLIBERCEPT INJECTION Ainsley Coreas MD [address] [address] Phone: tel: fax: Referral ID Status Reason Start Date Expiration Date V isits Requested Visits Authorized [id number] Authorized 01/11/2025 07/13/2026 1 1 Reason for Visit * Reason Comments Blurred Vision Encounter Details Date Type Department Care Team (Latest Contact Info) Description 01/11/2025 2:30 PM EDT Procedure Visit [facility] [address] [place] [address] Ainsley Coreas MD [address] [address] 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 No 09/21/2023 PHQ-9 Answer Date [...] any time in the past 12 m [facility], were you homeless or living in a long-term (including now)? No 09/02/2024 Utilities Answer Date Recorded In the past 12 months has e electric, gas, oil, or water company threatened to shut off services in your home? No 09/02/2024 PHQ-2A Answer Date Recorded Patient Health Questionnaire-2 Score 0 03/08/2023 Comments No Sex and Gender Information Value Date Recorded Sex Assigned at Female 08/29/2021 2:02 PM EST Legal Sex Female 6:41 PM EDT Gender Identity Female 08/29/2021 2:02 PM EST Sexual Orientation Straight 08/29/2021 2: 02 PM EST documented as of this encounter Miscellaneous Notes * Progress Notes - Jose Keene MD - 01/11/2025 2:30 PM EDT RETINA CLINIC NOTE 01/11/25 CHIEF COMPLAINT Patient presents for Blurred Vision HISTORY OF PRESENT ILLNESS: Ana Garcest is a 89 y.o. female who presents to the clinic today for: HPI Blurred Vision Laterality: right eye Comments 89 yo f presents in clinic for 14 week follow up. 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 Pt states visual acuity (VA) is stable. Last edited by Ainsley Coreas MD on 01/11/2025 10:50 PM. Referring physician: No referring provider defined for this encounter. HISTORICAL INFORMATION: Selected notes from the medical record: CURRENT MEDICATIONS: Current Outpatient Medications (Ophthalmic Drugs) Medication Sig carboxymethylcellulose PF (Refresh Plus) 0.5 % ophthalmic solution 1 drop if needed for dry eyes. No current facility-administered medications for this visit. (Ophthalmic Drugs) Current Outpatient Medications (Other) Medication Sig albuterol 1.25 MG/3ML nebulizer solution Take 3 mL (1.25 mg) by nebulization every 4 (four) hours if needed for wheezing (cough). albuterol 108 (90 Base) MCG/ACT inhaler Inhale 2 puffs every 4 (four) hours if needed for wheezing or shortness of breath. amLODIPine (Norvasc) 5 MG tablet Take 1 tablet (5 mg) by mouth 1 (one) time each day. atorvastatin (Lipitor) 40 MG tablet Take 1 tablet (40 mg) by mouth every night. cetirizine (ZyrTEC) 10 MG tablet Take 1 tablet (10 mg total) by mouth 1 (one) time each day. cholecalciferol (Vitamin D-3) 125 MCG (5000 UT) capsule Take 1 capsule (5,000 Units) by mouth 1 (one) time each day. (Patient taking differently: Take 1 capsule (5,000 Units) by mouth 2 (two) times aweek.) clopidogrel (Plavix) 75 MG tablet TAKE 1 TABLET BY MOUTH DAILY denosumab (Prolia) 60 MG/ML injection Inject 1 mL (60 mg) under the skin 1 (one) time. diclofenac (Voltaren) 1 % topical gel Place 2-4 g on the skin 4 (four) times a day if needed (jointpain). Apply as directed to back, painful joints. fluticasone (Flonase) 50 MCG/ACT nasal spray Shake gently. Before first use, prime pump. 2 sprays each nostril once daily. After use, clean tip and replace cap. fluticasone (Flovent HFA) 110 MCG/ACT inhaler Rinse mouth with water after use to reduce aftertasteand incidence of candidiasis. Do not swallow. Fluticasone Furoate (Arnuity Ellipta) 100 MCG/ACT aerosol powder Inhale 1 puff 1 (one) time each day. ketoconazole (NIZOral) 2 % shampoo lidocaine (Lidoderm) 5 % patch Apply 1 patch topically 1 (one) time each day over 12 hours. Apply to painful area 12 hours per day, remove for 12 hours. Multiple Vitamins-Minerals (EQ MULTIVITAMINS ADULT GUMMY PO) Take 1 Chewable tablet by mouth 1 (one) time each day. mupirocin (Bactroban) 2 % ointment Apply topically 1 (one) time each day if needed (lesions on scalp). pantoprazole (Protonix) 40 MG EC tablet Take 1 tablet (40 mg) by mouth 1 (one) time each day beforebreakfast. sertraline (Zoloft) 25 MG tablet Take 1 tablet (25 mg) by mouth 1 (one) time each day. No current facility-administered medications for this visit. 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, unspecified eye Cystoid macular edema Disorder of bone, unspecified Bone disease Diverticulosis of large intestine without perforation or abscess without bleeding Diverticulosis large intestine w/o perforation or abscess w/o bleeding Dizziness Dyspnea, unspecified Acute dyspnea Dysuria Dysuria Encounter for screening for depression Depression screening negative Essential (primary) hypertension HTN (hypertension) Gastro-esophageal reflux disease without esophagitis Gastroesophageal reflux disease Local infection of the skin and subcutaneous tissue, unspecified Skin pustule Major depressive disorder, single episode, unspecified Depression Myocardial infarction ([facility]) 07/2021 Other seborrheic keratosis Seborrheic keratoses Other secondary cataract, unspecified eye After cataract not obscuring vision Other specified disorders of bone density and structure, unspecified site Osteopenia Other specified respiratory disorders Respiratory infection Personal history of diseases of the blood and blood-forming organs and certain disorders involving the immune mechanism History of anemia Personal history of diseases of the blood and blood-forming organs and certain disorders involving the immune mechanism History of iron deficiency anemia Personal history of Methicillin resistant Staphylococcus aureus infection History of methicillin resistant Staphylococcus aureus infection Personal history of other diseases of the digestive system History of hiatal hernia Personal history of other diseases of the musculoskeletal system and connective tissue History of osteoporosis Personal history of other diseases of the nervous system and sense organs History of carpal tunnel syndrome Personal history of other malignant neoplasm of skin History of basal cell carcinoma Physical deconditioning 11/13/2022 Pneumonia 02/03/2022 has had three times since january [address]22 [address] elevation (STEMI) myocardial infarction of unspecified site (CMS/HCC) 08/19/2021 Syncope and collapse Micturition syncope Unilateral primary osteoarthritis, right hip Osteoarthritis of right hip Unspecified asthma, uncomplicated Asthma 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 Unspecified diastolic (congestive) heart failure (CMS/HCC) Diastolic heart failure Unspecified open wound of scalp, initial encounter Scalp wound Urinary tract infection, site not specified Acute lower UTI Vitamin D deficiency, unspecified Vitamin d deficiency SOCIAL HISTORY Social History Tobacco Use Smoking status: Never Passive exposure: Past Smokeless tobacco: Never Vaping Use Vaping status: Never Used Substance Use Topics Alcohol use: Not Currently Comment: Alcoholic Drinks/day: Occasional alcohol use Drug use: Never Comment: Drug use: No drug use GENERAL EXAM: General Exam: Neuro: Alert and Oriented x 3, normal mood and affect OPHTHALMIC EXAM: Base Eye Exam Visual Acuity (Snellen - Linear) Right Left Dist cc 20/25 -1 20/60 -2 Dist ph cc NI Correction: Glasses Tonometry (Tonopen, 2:39 PM) Right Left Pressure 10 11 Pupils Pupils APD Right PERRL None Left PERRL None Neuro/Psych Oriented x3: Yes Mood/Affect: Normal Dilation Both eyes: 2.5% Phenylephrine, 1% Tropicamide @ 2:40 PM Slit Lamp and Fundus Exam External Exam Right Left External Normal Normal Slit Lamp Exam Right Left Lids/Lashes Normal for age Normal for age Conjunctiva/Sclera Normal Normal Cornea 2+ inferior PEE Normal Anterior Chamber Deep and quiet Deep and quiet Iris Normal pupil size and shape normal pupil size and shape - no NVI Lens PCIOL PCIOL Anterior Vitreous Normal Normal Fundus Exam Right Left Posterior Vitreous Clear clear Disc No edema; no vascularization; good color (Keon 78 d Lens) no edema, no NVD, tortuous shunt vessels nasally C/D Ratio .3 .4 Macula ERM Normal reflex; mild edema Vessels Perfused, no tortuosity or abnormality tortuous, CRVO Periphery flat and attached 360 degrees, reticular degeneration flat and attached 360 degrees, reticular degeneration IMAGING AND PROCEDURES OCT, Retina - OU - Both Eyes Right Eye Quality was good. Progression has been stable. Left Eye Quality was good. Progression has worsened. Notes Right eye (OD) no edema Left eye (OS) increased mild edema Intravitreal Injection, Pharmacologic Agent - OS - Left Eye Time Out 01/11/2025. 4:53 PM. Confirmed correct patient, procedure, site, and patient consented. Anesthesia Topical anesthesia was used. Anesthetic medications included Tetracaine 0.5%. Procedure Preparation included 5% betadine to ocular surface. A 30 gauge needle was used. Injection: 1 mg Aflibercept 2 MG/0.05ML Route: Intravitreal, Site: Left Eye [facility]: 30062-466-81, Lot: [id number], Expiration date: 03/10/2026 Post-op Post injection exam found visual acuity of at least counting fingers. The patient tolerated the procedure well. There were no complications. The patient received written and verbal post procedure care education. Post injection medications were not given. Notes ERROR: Correct dose is 2mg administered, 0 wasted. I was present during all critical and storey portions of the procedures and immediately available to furnish services the entire duration. See resident note for details. 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 Last MARYSE 2mg 17wks ago - 20 weeks is too long, but 14-16 weeks was okay for Eylea 2mg in past - Does better with Eylea HD 8mg - decreased edema at 17 weeks (given on 11/07/23) - Today, slightly worse edema at 17 weeks s/p MARYSE - Eylea 2mg left eye (OS) today -- no Eylea HD samples available, not yet approved for RVO - switch to Eylea HD when approved for RVO - follow up in 14 weeks Dry AMD OU -observe Follow up in about 14 weeks (around 04/19/2025). Explained the diagnoses, plan, and follow up with the patient and they expressed understanding. Patient expressed understanding of the importance of proper follow up care. Tobacco Use: Low Risk (01/11/2025) Patient History Smoking Tobacco Use: Never Smokeless Tobacco Use: Never Passive Exposure: Past The patient has been counseled on tobacco cessation: Not Applicable Cosigned by Ainsley Coreas MD at 01/11/2025 10:55 PM EDT Associated attestation - Ainsley Coreas MD - 01/11/2025 10:55 PM EDT I saw and evaluated the patient with the resident/fellow. I discussed the case with the resident/fellow and agree with the findings and plan as documented. documented in this encounter Plan of Treatment Upcoming Encounters Date Type Department Care Team (Late st Contact Info) Description 02/28/2025 2:00 PM EDT Clinical Support [facility] [address], 1st [place] [phone] 03/14/2025 11:00 AM EDT Office Visit [facility] [address], [address] [place] [address] Harry Ashton MD [address] [place] [address] 03/15/2025 10:00 AM EDT Office Visit [facility] Internal Medicine [address], 3rd [place] [address] Arin Contreras, [address] [place] [address] 04/19/2025 12:45 PM EDT Procedure Visit [facility] [address] [facility] [place] [address] Ainsley Coreas MD [address] [facility] [address] [place] [address] 09/19/2025 1:40 PM EST Office Visit [facility] [place] [address] 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 4:53 PM. Confirmed correct patient, procedure, site, and patient consented. Anesthesia Topical anesthesia was used. Anesthetic medications included Tetracaine 0.5%. Procedure Preparation included 5% betadine to ocular surface. A 30 gauge needle was used. Injection: 1 mg Aflibercept 2 MG/0.05ML Route: Intravitreal, Site: Left Eye [facility]: 45551-080-84, Lot: [id number], Expiration date: 03/10/2026 Post-op Post injection exam found visual acuity of at least counting fingers. The patient tolerated the procedure well. There were no complications. The patient received written and verbal post procedure care education. Post injection medications were not given. Notes ERROR: Correct dose is 2mg administered, 0 wasted. I was present during all critical and storey portions of the procedures and immediately available to furnish services the entire duration. See resident note for details. 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
--- OUTSIDE RECORDS SUMMARY | 2025-01-31 08:23 | XMS_ITS | Encounter Summary ---
Author Organization [facility] Address [address] [place] [address] Care Team Providers Care Electromedical Service Engineer Name Role Phone Ben Arin Francois DO Primary Care Provider [phone] Brooklyn Olmedo MD Unavailable [phone] Encounter Details Date Type Department Care Team (Latest Contact Info) Description 01/11/2025 Travel Social History Tobacco Use Types Packs/Day Years [...] place to sleep or slept in a senior care (including now)? No 09/21/2023 PHQ-9 Answer Date [...] any time in the past 12 m [facility], were you homeless or living in a senior care (including now)? No 09/02/2024 Utilities Answer Date Recorded In the past 12 months has th e electric, gas, oil, or water company [...] Description 02/28/2025 2:00 PM EDT Clinical Support [facility] Laboratory Services [address] [facility], 1st [place] [address] 03/14/2025 11:00 AM EDT Office Visit [facility] [address] [facility], [address] [place] [address] Harry Ashton MD [address] [facility] [address] [place] [address] 03/15/2025 10:00 AM EDT Office Visit [facility] Internal Medicine [address], [address]rd [place] [address] Arin Contreras DO [address] [place] [address] 04/19/2025 12:45 PM EDT Procedure Visit [facility] [address] [facility] [place] [address] Ainsley Coreas MD [address] [facility] [address] [place] [address] 09/19/2025 1:40 PM EST Office Visit [facility] [place] Johnny 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 Assessment Noted Time PHQ-9 Depression Total Score: 0 09/13/19 25 9:29 AM EST A fall risk assessment has been complete d for the patient 01/11/2025 2:23 PM EDT A Body Mass Index follow-up plan has been documented for the patient 01/11/2025 5:03 PM EDT documented as of this encounter Care Teams Electromedical Service Engineer Relationship Specialty Start Date End Date Arin Contreras DO [address] [address] PCP - General Internal Medicine 11/03/21 Brooklny Olmedo MD [address] [place] [address] [phone] PCP - Resident Internal Medicine 03/08/23 02/18/25 documented as of this encounter
--- OUTSIDE RECORDS SUMMARY | 2025-01-31 08:23 | XMS_ITS | Encounter Summary ---
Author Organization [facility] Address [address] [place] [address] Care Team Providers Care Load Dispatcher Local Name Role Phone Ben Arin Francois DO Primary Care Provider [phone] Brooklyn Olmedo MD Unavailable [phone] Encounter Details Date Type Department Care Team (Latest Contact Info) Description 01/05/2025 Travel Social History Tobacco Use Types Packs/Day [...] place to sleep or slept in a assisted (including now)? No 09/21/2023 PHQ-9 Answer Date [...] time in the past 12 m [facility], were you homeless or living in a assisted (including now)? No 09/02/2024 Utilities Answer Date [...] 02/28/2025 2:00 PM EDT Clinical Support Professional [facility] Laboratory Services [address] [facility], 1st [place] [address] 03/14/2025 11:00 AM EDT Office Visit [facility] [address] [facility], [address] [place] [address] Harry Ashton MD [address] [facility] [address] [place] [address] 03/15/2025 10:00 AM EDT Office Visit [facility] Internal Medicine [address], [address] [place] [address] Arin Contreras DO [address] [place] [address] 04/19/2025 12:45 PM EDT Procedure Visit [facility] [address] [facility] [place] [address] Ainsley Coreas MD [address] [facility] [address] [place] [address] 09/19/2025 1:40 PM EST Office Visit [facility] [place] Johnny 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 Assessment Noted Time PHQ-9 Depression Total Score: 0 09/13/19 25 9:29 AM EST A fall risk assessment has been complete d for the patient 09/14/2024 10:01 AM EST A Body Mass Index follow-up plan has been documented for the patient 09/14/2024 12:07 PM EST documented as of this encounter Care Teams Load Dispatcher Local Relationship Specialty Start Date End Date Arin Contreras DO [address] [address] PCP - General Internal Medicine 11/03/21 Brooklyn Olmedo MD [address] [place] [id number] PCP - Resident Internal Medicine 03/08/23 02/18/25 documented as of this encounter
--- OUTSIDE RECORDS SUMMARY | 2025-01-31 08:23 | XMS_ITS ---
Author Organization [facility] Address [address] [place] [address] Care Team Providers Care Dump Truck Operator Name Role Phone Ben Arin Francois DO Primary Care Provider [phone] Brooklyn Olmedo MD Unavailable [phone] Active Problems Problem Noted Date Diagnosed Date Decreased mobility 09/17/2024 Overview (09/17/2024): - Ordered DME: wheelchair. Assessment & Plan (09/17/2024 10:27 PM EST): - Ordered DME: wheelchair. Allergy 09/07/2024 Arthritis 09/07/2024 Eczema 09/07/2024 Fall 09/07/2024 Osteoporosis 08/20/2024 Overview (09/07/2024): - F/w bone clinic, started prolia Assessment & Plan (09/07/2024 11:48 AM EST): - F/w bone clinic, started prolia Fracture Risk Assessment Sco re (FRAX) indicating greater than 3% risk for hip fracture 08/09/2024 Chronic midline low back pain without sciatica 0 03/15/2024 Overview (03/15/2024): - Conservative management: Tylenol PRN, diclofenac gel PRN, lidocaine patches PRN. Assessment & Plan (09/17/2024 10:25 PM EST): - Conservative management: Tylenol PRN, diclofenac gel PRN, lidocaine patches PRN. Assessment & Plan (03/15/2024 10:52 AM EDT): - Conservative management: Tylenol PRN, diclofenac gel PRN, lidocaine patches PRN. Adnexal mass 10/25/2023 Overview (03/06/2024): - Was seen incidentally on CT pelvis: bilateral adnexal masses, largest 6.7 cm x 3.8 cm. Pelvic US for further evaluation limited evaluation. Discussed pelvic MRI, opted to defer additional workup following shared decision making. Assessment & Plan (03/06/2024 11:56 AM EDT): - Was seen incidentally on CT pelvis: bilateral adnexal masses, largest 6.7 cm x 3.8 cm. Pelvic US for further evaluation limited evaluation. Discussed pelvic MRI, opted to defer additional workup following shared decision making. Assessment & Plan (10/25/2023 4:32 PM EST): - Was seen incidentally on CT pelvis: bilateral adnexal masses, largest 6.7 cm x 3.8 cm. Ordered pelvic US for further evaluation. Pain in right hip 10/25/2023 Overview (03/06/2024): - S/p mechanical fall without fracture - Underwent PT; pain improved Assessment & Plan (03/06/2024 11:55 AM EDT): - S/p mechanical fall without fracture - Underwent PT; pain improved Assessment & Plan (10/25/2023 4:38 PM EST): - Suffered mechanical fall on Tuesday, hit her head and right shoulder and right hip. No loss of consciousness. - Went to [facility], underwent trauma evaluation, no concerning findings including no fractures. - Patient reports only residual symptom is some right groin/right hip pain. - Will refer to PT today. Can continue conservative treatment with Tylenol PRN. Hypomagnesemia 03/08/2023 Overview (09/17/2024): - Suspect PPI-induced. Last magnesium level near-normal 02/2024. - Significant diarrhea with oral replacement. Did not tolerate alternate formulations, low doses. Now discontinued. Asymptomatic. Assessment & Plan (09/17/2024 10:21 PM EST): - Suspect PPI-induced. Last magnesium level near-normal 02/2024. - Significant diarrhea with oral replacement. Did not tolerate alternate formulations, low doses. Now discontinued. Asymptomatic. Assessment & Plan (03/06/2024 12:00 PM EDT): - Suspect PPI-induced - Not interested in switching off PPI presently, advised that hypomagnesemia is likely related to this - Mg 1.4, persistently low despite IV replacement - Had significant diarrhea following IV repletion - Taking 2 tablets of MgCl daily, still having GI side effects. - Repeat Mg ordered; given GI side effects, absence of symptoms from hypoMg, will likely wean off MgCl Assessment & Plan (03/08/2023 9:24 AM EDT): - Suspect PPI-induced - Not interested in switching off PPI presently, advised that hypomagnesemia is likely related to this - Mg 1.4, persistently low despite IV replacement - Had significant diarrhea following IV repletion - Taking 2 tablets of MgCl daily, plans to advance as tolerated Superficial punctate keratitis of both eyes 10/21 Height loss 05/14/2022 Hyperlipidemia 04/15/2022 Overview (10/25/2023): - Chronic, controlled, on atorvastatin 40 mg. Assessment & Plan (09/17/2024 10:21 PM EST): - Chronic, controlled, on atorvastatin 40 mg. Assessment & Plan (03/06/2024 11:59 AM EDT): - Chronic, controlled, on atorvastatin 40 mg. Assessment & Plan (10/25/2023 4:37 PM EST): - Chronic, controlled, on atorvastatin 40 mg. Assessment & Plan (03/08/2023 9:18 AM EDT): - On atorvastatin 40 mg. Healthcare maintenance 03/15/2022 Overview (09/17/2024): Healthcare Maintenance Immunizations Immunization History Administered Date(s) Administered Influenza Vaccine, Quadrivalent, Adjuvanted 05/20/2021, 04/28/2023 Influenza, High-dose, Split Virus, Trivalent, Injectable, preservative free 06/13/2024 Influenza, Split (incl. purified surface antigen) 06/11/2003, 06/03/2004, 07/02/2005, 06/02/2007, 06/21/2008, 05/26/2009, 06/03/2010 Influenza, Unspecified 05/20/2021 Influenza, high-dose, quadrivalent 06/14/2016, 06/18/2017, 05/02/2018, 05/09/2019, 06/03/2020, 05/13/2022 Influenza, seasonal, injectable 04/22/2019, 06/03/2020, 05/20/2021 Pfizer Covid-19 Vaccine 12y+, Efren Protein, PF, Everardo-Sucrose 05/26/2023, 06/13/2024 Pfizer-BioNTech COVID-19 Bivalent (Coy Cap) 12+ years (everardo-sucrose) 05/13/2022 Pfizer-BioNTech COVID-19 Vaccine (Quick Cap) 12+ years (everardo-sucrose) 11/23/2021 Pfizer-BioNTech COVID-19 Vaccine (Purple Cap) 12+ 09/12/2020, 10/15/2020, 05/20/2021 Pneumococcal 20-margaret Conj Vaccine 03/31/2023 Pneumococcal Conjugate PCV 13 07/01/2014 Pneumococcal Polysaccharide PPV23 05/03/2002, 07/01/2011 Tdap 08/22/2005, 06/23/2017 Zoster, Recombinant 04/28/2023, 11/05/2023 Zoster, live 06/22/2014 Cancer Screenings Cervical cancer: Aged out of screening. Breast cancer:Aged out of screening. Colon cancer: underwent colonoscopy in 2010 with no polyps. Aged out of screening. Lung cancer: Aged out of screening. Other Screenings DEXA: Last DEXA in 07/2024 with osteoporosis. Follows with bone clinic. On Prolia. Labs ASCVD: Last lipid panel 04/2022: LDL 21 A1c: Lab Results Component Value Date HGBA1C 5.4 08/18/2021 HIV/Hepatitis C: Aged out of screening. Referrals Dentist: Follows regularly. Dermatology: Follows regularly. Ophthalmology: Follows regularly. Diet/Exercise The patient received dietary education because they have an above normal BMI. and The patient received exercise education because they have an above normal BMI. Assessment & Plan (09/17/2024 10:22 PM EST): Immunizations Immunization History Administered Date(s) Administered Influenza Vaccine, Quadrivalent, Adjuvanted 05/20/2021, 04/28/2023 Influenza, High-dose, Split Virus, Trivalent, Injectable, preservative free 06/13/2024 Influenza, Split (incl. purified surface antigen) 06/11/2003, 06/03/2004, 07/02/2005, 06/02/2007, 06/21/2008, 05/26/2009, 06/03/2010 Influenza, Unspecified 05/20/2021 Influenza, high-dose, quadrivalent 06/14/2016, 06/18/2017, 05/02/2018, 05/09/2019, 06/03/2020, 05/13/2022 Influenza, seasonal, injectable 04/22/2019, 06/03/2020, 05/20/2021 Pfizer Covid-19 Vaccine 12y+, Efren Protein, PF, Everardo-Sucrose 05/26/2023, 06/13/2024 Pfizer-BioNTech COVID-19 Bivalent (Coy Cap) 12+ years (everardo-sucrose) 05/13/2022 Pfizer-BioNTech COVID-19 Vaccine (Quick Cap) 12+ years (everardo-sucrose) 11/23/2021 Pfizer-BioNTech COVID-19 Vaccine (Purple Cap) 12+ 09/12/2020, 10/15/2020, 05/20/2021 Pneumococcal 20-margaret Conj Vaccine 03/31/2023 Pneumococcal Conjugate PCV 13 07/01/2014 Pneumococcal Polysaccharide PPV23 05/03/2002, 07/01/2011 Tdap 08/22/2005, 06/23/2017 Zoster, Recombinant 04/28/2023, 11/05/2023 Zoster, live 06/22/2014 Cancer Screenings Cervical cancer: Aged out of screening. Breast cancer:Aged out of screening. Colon cancer: underwent colonoscopy in 2010 with no polyps. Aged out of screening. Lung cancer: Aged out of screening. Other Screenings DEXA: Last DEXA in 07/2024 with osteoporosis. Follows with bone clinic. On Prolia. Labs ASCVD: Last lipid panel 04/2022: LDL 21 A1c: Lab Results Component Value Date HGBA1C 5.4 08/18/2021 HIV/Hepatitis C: Aged out of screening. Referrals Dentist: Follows regularly. Dermatology: Follows regularly. Ophthalmology: Follows regularly. Assessment & Plan (03/06/2024 12:01 PM EDT): Healthcare Maintenance Immunizations Immunization History Administered Date(s) Administered Influenza Vaccine, Quadrivalent, Adjuvanted 05/20/2021, 04/28/2023 Influenza, Unspecified 05/20/2021 Influenza, high-dose, quadrivalent 06/14/2016, 06/18/2017, 05/02/2018, 05/09/2019, 06/03/2020, 05/13/2022 Influenza, seasonal, injectable 04/22/2019, 06/03/2020, 05/20/2021 Pfizer Covid-19 Vaccine 12y+, Efren Protein, PF, Everardo-Sucrose 05/26/2023 Pfizer-BioNTech COVID-19 Bivalent (Coy Cap) 12+ years (everardo-sucrose) 05/13/2022 Pfizer-BioNTech COVID-19 Vaccine (Quick Cap) 12+ years (everardo-sucrose) 11/23/2021 Pfizer-BioNTech COVID-19 Vaccine (Purple Cap) 12+ 09/12/2020, 10/15/2020, 05/20/2021 Pneumococcal 20-margaret Conj Vaccine 03/31/2023 Pneumococcal Conjugate PCV 13 07/01/2014 Pneumococcal Polysaccharide PPV23 07/01/2011 Tdap 08/22/2005, 06/23/2017 Zoster, Recombinant 04/28/2023, 11/05/2023 Zoster, live 06/22/2014 Cancer Screenings Cervical cancer: Aged out of screening. Breast cancer:Aged out of screening. Colon cancer: underwent colonoscopy in 2010 with no polyps. Aged out of screening. Lung cancer: Aged out of screening. Other Screenings DEXA: Last DEXA in 07/2023 with osteopenia, some bone loss from 2021. Follows with bone clinic. Labs ASCVD: Last lipid panel 04/2022: LDL 21 A1c: Lab Results Component Value Date HGBA1C 5.4 08/18/2021 HIV/Hepatitis C: Aged out of screening. Referrals Dentist: Follows regularly. Dermatology: Follows regularly. Ophthalmology: Follows regularly. Diet/Exercise The patient received dietary education because they have an above normal BMI. and The patient received exercise education because they have an above normal BMI. Assessment & Plan (03/08/2023 9:17 AM EDT): Healthcare Maintenance Immunizations Immunization History Administered Date(s) Administered Influenza, Unspecified 05/20/2021 Influenza, high-dose, quadrivalent 06/14/2016, 06/18/2017, 05/02/2018, 05/09/2019, 06/03/2020, 05/13/2022 Influenza, seasonal, injectable 04/22/2019, 06/03/2020, 05/20/2021 Pfizer-BioNTech COVID-19 Bivalent Booster (Coy Cap) 12+ years (everardo-sucrose) 05/13/2022 Pfizer-BioNTech COVID-19 Vaccine (Quick Cap) 12+ years (everardo-sucrose) 11/23/2021 Pfizer-BioNTech COVID-19 Vaccine (Purple Cap) 12+ 09/12/2020, 10/15/2020, 05/20/2021 Pneumococcal Conjugate PCV 13 07/01/2014 Pneumococcal Polysaccharide PPV23 07/01/2011 Tdap 08/22/2005, 06/23/2017 Zoster, live 06/22/2014 - Recommended Shingrix, PCV20 02/2023. Cancer Screenings ? Cervical cancer: Aged out of screening. ? Breast cancer:Aged out of screening. ? Colon cancer: underwent colonoscopy in 2010 with no polyps. Aged out of screening. ? Lung cancer: Aged out of screening. Other Screenings ? DEXA: Last DEXA in 06/2022 with osteopenia stable from 2020. Off antiresorptive therapy at present, repeat due 06/2023. Labs ? ASCVD: Last lipid panel 04/2022: LDL 21 ? A1c: Lab Results Component Value Date HGBA1C 5.4 08/18/2021 ? HIV/Hepatitis C: Aged out of screening. Referrals ? Dentist: Follows regularly. ? Dermatology: Follows regularly. ? Ophthalmology: Follows regularly. Diet/Exercise The patient received dietary education because they have an above normal BMI. and The patient received exercise education because they have an above normal BMI. Assessment & Plan (09/08/2022 1:56 PM EST): Healthcare Maintenance Immunizations Immunization History Administered Date(s) Administered Influenza, High Dose Seasonal, Preservative Free 06/14/2016, 06/18/2017, 05/02/2018, 05/09/2019, 06/03/2020 Influenza, Unspecified 05/20/2021 Influenza, seasonal, injectable 04/22/2019, 06/03/2020, 05/20/2021 Pf[facility] COVID-19 Vaccine (Quick Cap) 12+ years 11/23/2021 Pfizer-BioNTech COVID-19 Vaccine (Purple Cap) 12+ 09/12/2020, 10/15/2020, 05/20/2021 Pneumococcal Conjugate PCV 13 07/01/2014 Pneumococcal Polysaccharide PPV23 07/01/2011 Tdap 08/22/2005, 06/23/2017 Zoster, live 06/22/2014 - Recommended Shingrix 02/2022. Cancer Screenings ? Cervical cancer: Aged out of screening. ? Breast cancer:Aged out of screening. ? Colon cancer: underwent colonoscopy in 2010 with no polyps. Aged out of screening. ? Lung cancer: Aged out of screening. Other Screenings ? DEXA: Last DEXA in 06/2022 with osteopenia stable from 2019. Off antiresorptive therapy at present, repeat due 06/2023. Labs ? ASCVD: Last lipid panel 07/2021: The ASCVD Risk score (Welsh KRYSTAL Jr., et al., 2013) failed to calculate for the following reasons: ? The 2013 ASCVD risk score is only valid for ages 40 to 79 ? The patient has a prior NC or stroke diagnosis ? A1c: Lab Results Component Value Date HGBA1C 5.4 08/18/2021 ? ? HIV/Hepatitis C: Aged out of screening. Referrals ? Dentist: Follows regularly. ? Dermatology: Follows regularly. ? Ophthalmology: Follows regularly. Diet/Exercise The patient received dietary education because they have an above normal BMI. and The patient received exercise education because they have an above normal BMI. Assessment & Plan (03/15/2022 4:12 PM EDT): Healthcare Maintenance Immunizations Immunization History Administered Date(s) Administered Influenza, High Dose Seasonal, Preservative Free 06/14/2016, 06/18/2017, 05/02/2018, 05/09/2019, 06/03/2020 Influenza, Unspecified 05/20/2021 Influenza, seasonal, injectable 04/22/2019, 06/03/2020, 05/20/2021 Pfizer-BioNTech COVID-19 Vaccine (Quick Cap) 12+ years 11/23/2021 Pfizer-BioNTech COVID-19 Vaccine (Purple Cap) 12+ 09/12/2020, 10/15/2020, 05/20/2021 Pneumococcal Conjugate PCV 13 07/01/2014 Pneumococcal Polysaccharide PPV23 07/01/2011 Tdap 08/22/2005, 06/23/2017 Zoster, live 06/22/2014 - Recommended Shingrix 02/2022. Cancer Screenings ? Cervical cancer: Aged out of screening. ? Breast cancer:Aged out of screening. ? Colon cancer: underwent colonoscopy in 2010 with no polyps. Aged out of screening. ? Lung cancer: Aged out of screening. Other Screenings ? DEXA: Last DEXA in 06/2020 with osteopenia, repeat due 06/2022, ordered 02/2022. Labs ? ASCVD: Last lipid panel 07/2021: The ASCVD Risk score (Welsh KRYSTAL Jr., et al., 2013) failed to calculate for the following reasons: ? The 2013 ASCVD risk score is only valid for ages 40 to 79 ? The patient has a prior NC or stroke diagnosis ? A1c: Lab Results Component Value Date HGBA1C 5.4 08/18/2021 ? ? HIV/Hepatitis C: Aged out of screening. Referrals ? Dentist: Follows regularly. ? Dermatology: Follows regularly. ? Ophthalmology: Follows regularly. Diet/Exercise The patient received dietary education because they have an above normal BMI. and The patient received exercise education because they have an above normal BMI. 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 - Chronic, stable, asymptomatic. - On Plavix, statin. - Follows with cardiology. Assessment & Plan (09/07/2024 11:48 AM EST): - History of Inferior STEMI s/p VIVIAN to RCA on 08/18/2021. - Chronic, stable, asymptomatic. - On Plavix, statin. - Follows with cardiology. Assessment & Plan (03/06/2024 11:55 AM EDT): - History of Inferior STEMI s/p VIVIAN to RCA on 08/18/2021. - Chronic, stable, asymptomatic. - On Plavix, statin. - Follows with cardiology. Assessment & Plan (10/25/2023 4:34 PM EST): - History of Inferior STEMI s/p VIVIAN to RCA on 08/18/2021. - Chronic, stable, asymptomatic. - On Plavix, statin. - Follows with cardiology. Assessment & Plan (03/17/2023 3:02 PM EDT): - History of Inferior STEMI s/p VIVIAN to RCA on 08/18/2021 - On plavix, statin, beta-damion. - Follows with cardiology. Assessment & Plan (09/08/2022 1:52 PM EST): - History of Inferior STEMI s/p VIVIAN to RCA on 08/18/2021 - On plavix, statin, beta-damion. - Doing well with cardiac rehab. - Follows with cardiology (Dr. Sosa, next appointment 09/16/2022). Assessment & Plan (03/15/2022 3:59 PM EDT): - History of Inferior STEMI s/p VIVIAN to RCA on 08/18/2021 - On aspirin, Plavix, statin, beta-damion. - Doing well with cardiac rehab. - Follows with cardiology (Dr. Sosa, next appointment 04/15/2022). Acidosis 08/19/2021 Overview (03/15/2022): - Due to CKD3. Primary osteoarthritis 08/19/2021 Overview (03/06/2024): - Chronic low back pain; limiting activity. Prefers conservative management with tylenol, diclofenac gel, lidocaine patch Assessment & Plan (03/06/2024 11:59 AM EDT): - Chronic low back pain; limiting activity. Prefers conservative management with tylenol, diclofenac gel, lidocaine patch Gastro-esophageal reflux disease without esophag itis 08/19/2021 Overview (03/08/2023): - On termination clerk PPI, well-controlled - Has GERD symptoms with missed doses, will continue at present though suspect PPI as culprit for persistent hypomagnesemia Assessment & Plan (09/17/2024 10:23 PM EST): - On mcfp PPI, well-controlled - Has GERD symptoms with missed doses, will continue at present though suspect PPI as culprit for persistent hypomagnesemia Assessment & Plan (03/06/2024 11:56 AM EDT): - On mcfp PPI, well-controlled - Has GERD symptoms with missed doses, will continue at present though suspect PPI as culprit for persistent hypomagnesemia Assessment & Plan (03/08/2023 9:21 AM EDT): - On mcfp PPI, well-controlled - Has GERD symptoms with missed doses, will continue at present though suspect PPI as culprit for persistent hypomagnesemia Presence of coronary angioplasty implant and gra ft 08/19/2021 Essential (primary) hypertension 08/19/2021 Overview (10/25/2023): - Chronic, well controlled on amlodipine 5 mg daily. Will continue. Assessment & Plan (03/06/2024 11:54 AM EDT): - Chronic, well controlled on amlodipine 5 mg daily. Will continue. Assessment & Plan (09/08/2022 1:53 PM EST): - Well controlled, chronic. - On amlodipine 5 mg daily, metoprolol XL 12.5 mg daily. Assessment & Plan (03/15/2022 4:01 PM EDT): - Well controlled, chronic. - On amlodipine 5 mg daily, metoprolol XL 12.5 mg daily. Sensorineural hearing loss of combined sites, bi lateral 07/03/2020 Overview (09/20/2022): - Follows with audiology and ENT. Assessment & Plan (03/06/2024 11:55 AM EDT): - Follows with audiology and ENT. History of skin graft 05/08/2019 Overview (03/15/2022): - Scalp (due to BCC). After-cataract of right eye with vision obscured 10/06/2018 Anemia in chronic kidney disease (CKD) 8 Overview (09/17/2024): - Last hemoglobin normal 02/2024. Assessment & Plan (03/06/2024 11:57 AM EDT): - Last hemoglobin 11.5 in 01/2023 (normal). Actinic keratoses 06/21/2017 Overview (03/15/2022): - History of BCC of the Scalp s/p Removal, Skin Graft: Follows with outside pattern cutter. Assessment & Plan (03/08/2023 9:18 AM EDT): - History of BCC of the Scalp s/p Removal, Skin Graft: Follows with outside pattern cutter. Seborrheic keratoses 06/21/2017 Overview (03/15/2022): - Follows with dermatology. Central retinal vein occlusi on with macular edema of left eye 10/14/2016 Diastolic heart failure 02/17/2016 Overview (03/15/2022): - Echocardiogram 07/2021: The LVEF is visually estimated at 60 - 70%. No regional wall motion abnormalities are seen. No diastolic dysfunction noted. Assessment & Plan (03/06/2024 11:56 AM EDT): - Echocardiogram 07/2021: The LVEF is visually estimated at 60 - 70%. No regional wall motion abnormalities are seen. No diastolic dysfunction noted. Cystoid macular edema 05/12/2015 Retinal vein occlusion 05/12/2015 CKD (chronic kidney disease) stage 3, GFR 30-59 ml/min 02/24/2015 Overview (09/17/2024): - Chronic, stable. Last creatinine 1.01 in 07/2024 (baseline 1.1-1.2). Small amount of proteinuria as of 02/2022. Assessment & Plan (09/17/2024 10:25 PM EST): - Chronic, stable. Last creatinine 1.01 in 07/2024 (baseline 1.1-1.2). Small amount of proteinuria as of 02/2022. Assessment & Plan (03/06/2024 11:57 AM EDT): - Chronic, stable. Last creatinine 1.15 in 07/2023 (baseline 1.1-1.2). Small amount of proteinuria as of 02/2022. Assessment & Plan (03/08/2023 9:20 AM EDT): - Stable, chronic. - Complicated by anemia, osteopenia. - Baseline creatinine 1.1-1.2. Last creatinine 0.96 in 01/2023. Small amount of proteinuria as of 02/2022. Assessment & Plan (09/08/2022 1:51 PM EST): - Stable, chronic. - Complicated by anemia, osteopenia. - Baseline creatinine 1.1-1.2. Last creatinine 1.15 in 04/2022. Small amount of proteinuria as of 02/2022. Assessment & Plan (03/15/2022 4:02 PM EDT): - Stable, chronic. - Complicated by anemia, osteopenia. - Baseline creatinine 1.1-1.2. Last creatinine 1.29 in 07/2021. Small amount of proteinuria as of 04/2021. - Repeat CBC, RFP, urine protein, PTH, vitamin D level today. Allergic rhinitis 07/01/2014 Overview (03/17/2023): - Chronic, well controlled with Flonase, Zyrtec. Assessment & Plan (03/06/2024 11:55 AM EDT): - Chronic, well controlled with Flonase, Zyrtec. Assessment & Plan (03/17/2023 2:59 PM EDT): - Chronic, well controlled with Flonase, Zyrtec. Assessment & Plan (09/08/2022 1:53 PM EST): - Well controlled. Flonase, Zyrtec, Flovent BID, albuterol neb and inhaler PRN. Asthma 07/01/2014 Overview (03/06/2024): - Well controlled. Flonase, Zyrtec, Flovent BID, albuterol neb and inhaler PRN. Flovent switched to [employer], has not started this yet - has leftover flovent inhalers. - PFTs 11/2022: normal spirometry, low TLC with nl VC Assessment & Plan (09/17/2024 10:25 PM EST): - Well controlled. Flonase, Zyrtec, Flovent BID, albuterol neb and inhaler PRN. Flovent switched to [employer], has not started this yet - has leftover flovent inhalers. - PFTs 11/2022: normal spirometry, low TLC with nl VC Assessment & Plan (03/06/2024 11:54 AM EDT): - Well controlled. Flonase, Zyrtec, Flovent BID, albuterol neb and inhaler PRN. Flovent switched to [employer], has not started this yet - has leftover flovent inhalers. - PFTs 11/2022: normal spirometry, low TLC with nl VC Assessment & Plan (10/25/2023 4:40 PM EST): - Chronic, well controlled on current inhaler regimen. Assessment & Plan (03/17/2023 3:01 PM EDT): - Well controlled. Flonase, Zyrtec, Flovent BID, albuterol neb and inhaler PRN. - PFTs 11/2022: normal spirometry, low TLC with nl VC Depression 07/01/2014 Overview (03/15/2022): - Stable mood on Zoloft 25 mg daily. Assessment & Plan (03/06/2024 12:00 PM EDT): - Stable mood on Zoloft 25 mg daily. Assessment & Plan (03/08/2023 9:17 AM EDT): - Stable mood on Zoloft 25 mg daily. Assessment & Plan (09/08/2022 1:51 PM EST): - Stable mood on Zoloft 25 mg daily. 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 Past Treatment and Therapy Plans Lifetime Dose Tracking * Chemical Lifetime Dose Automatic Entry Manual Entr y Fluoro Time 24.1 minutes 0 minutes 24.1 minutes Air Kerma 688 mGy 0 mGy 688 mGy Air Kerma Area Product 43,311 Gy-cm2 0 Gy-cm2 43,3 11 Gy-cm2 Resolved Problems Problem Noted Date Diagnosed Date Resolved Date Bronchitis 09/07/2024 09/17/2024 Sinusitis 09/07/2024 09/17/2024 Physical deconditioning 11/13/202202/19 Other specified disorders of bone density and structure, other site 07/22/2022 09/17/2024 Pneumonia 02/03/2022 03/17/2023 Overview (11/08/2022): has had three times since january 2022 Elevated white blood cell count, unspecified 03/15/2022 ST elevation (STEMI) myocard ial infarction of unspecified site 08/19/2021 03/15/2022 STEMI (ST elevation myocardial infarction) 08/18/2021 08/19/2021 Osteopenia 09/25/2017 09/17/2024 Overview (03/06/2024): - Last DEXA 07/2023 with osteopenia. Follows with bone clinic. Assessment & Plan (03/06/2024 11:58 AM EDT): - Last DEXA 07/2023 with osteopenia. Follows with bone clinic. Assessment & Plan (03/15/2022 4:03 PM EDT): - Last DEXA scan 06/2020 with osteopenia, treatment recommended. On Boniva, however no longer available through [facility], prescription is very expensive, she is no longer taking. - She would like to discuss other options with the bone clinic, referral made 02/2022. - Repeat DEXA due 06/2022, ordered 02/2022. Osteoarthritis of right hip 07/01/2014 03/15/2022 Elevated serum creatinine 12/15/2012
--- OUTSIDE RECORDS SUMMARY | 2025-01-31 08:23 | XMS_ITS | Clinical Summary ---
Author Organization [facility] Address [address] [place] [address] Care Team Providers Care Manager N[place] Name Role Phone Arin Contreras Priscila AUSTIN Primary Care Provider [phone] Brooklyn Olmedo MD Unavailable [phone] Allergies Active Allergy Reactions Criticality Noted Date Comments Codeine Other - please docum ent in the comment field,Unknown - Patient states they do not know rxn details Low 02/24/2015 Diclofenac-Misoprostol Diarrhea Low 12/03/2005 Meperidine Other - please docum ent in the comment field Low 07/01/2014 agitation Meperidine Hcl Unknown - Patient st ates they do not know rxn details Low 01/11/2025 Penicillins Itching,Rash Medium 02/24/2015 Red Dye #28 Rash Low 01/11/2025 Red Dye #40 (Allura Red) Itching,Rash Medium 4 Sulfacetamide Itching,Rash Medium 02/24/2015 Medications cholecalciferol (Vitamin D-3) 125 MCG (5000 UT) capsule Take 1 capsule (5,000 Units) by mouth 1 (one) time each day. Active carboxymethylcellu lose PF (Refresh Plus) 0.5 % ophthalmic solution 1 drop if needed for dry eyes. Active cetirizine (ZyrTEC) 10 MG tabletIndications: Allergic rhinitis, unspecified seasonality, unspecified trigger Take 1 tablet (10 mg total) by mouth 1 (one) time each day. 90 tablet 3 09/08/19 Active mupirocin (Bactroban) 2 % ointment Apply topically 1 (one) time each day if needed (lesions on scalp). 22 g 2 11/04/19 23 Active fluticasone (Flonase) 50 MCG/ACT nasal sprayIndications:A llergic rhinitis, unspecified seasonality, unspecified trigger Shake gently. Before first use, prime pump. 2 sprays each nostril once daily. After use, clean tip and replace cap. 16 g 2 03/08/20 23 Active fluticasone (Flovent HFA) 110 MCG/ACT inhalerIndications :Mild intermittent asthma, unspecified whether complicated Rinse mouth with water after use to reduce aftertaste and incidence of candidiasis. Do not swallow. 36 g 3 03/06/20 24 Active Fluticasone Furoate (Arnuity Ellipta) 100 MCG/ACT aerosol powder Inhale 1 puff 1 (one) time each day. 1 each 10/18/19 24 Active amLODIPine (Norvasc) 5 MG tabletIndications: Essential (primary) hypertension Take 1 tablet (5 mg) by mouth 1 (one) time each day. 90 tablet 3 03/06/20 24 Active sertraline (Zoloft) 25 MG tablet Take 1 tablet (25 mg) by mouth 1 (one) time each day. 90 tablet 03/06/20 24 Active diclofenac (Voltaren) 1 % topical gel Place 2-4 g on the skin 4 (four) times a day if needed (joint pain). Apply as directed to back, painful joints. 50 g 03/06/20 24 Active lidocaine (Lidoderm) 5 % patchIndications:C hronic midline low back pain without sciatica Apply 1 patch topically 1 (one) time each day over 12 hours. Apply to painful area 12 hours per day, remove for 12 hours. 30 patch 03/06/20 24 025 Active pantoprazole (Protonix) 40 MG EC tabletIndications: Gastro-esophageal reflux disease without esophagitis Take 1 tablet (40 mg) by mouth 1 (one) time each day before breakfast. 90 tablet 09/07/19 25 Active clopidogrel (Plavix) 75 MG tablet TAKE 1 TABLET BY MOUTH DAILY 90 tablet 04/16/20 24 Active atorvastatin (Lipitor) 40 MG tabletIndications: Athscl heart disease of [place] coronary artery w/o ang pctrs,Hyperlipidem ia, unspecified hyperlipidemia type Take 1 tablet (40 mg) by mouth every night. 90 tablet 3 09/07/19 25 Active Multiple Vitamins-Minerals (EQ MULTIVITAMINS ADULT GUMMY PO) Take 1 Chewable tablet by mouth 1 (one) time each day. Active denosumab (Prolia) 60 MG/ML injection Inject 1 mL (60 mg) under the skin 1 (one) time. Active albuterol 108 (90 Base) MCG/ACT inhalerIndications :Mild intermittent asthma, unspecified whether complicated Inhale 2 puffs every 4 (four) hours if needed for wheezing or shortness of breath. 8.5 g 11 09/07/19 25 Active albuterol 1.25 MG/3ML nebulizer solutionIndication s:Mild intermittent asthma, unspecified whether complicated Take 3 mL (1.25 mg) by nebulization every 4 (four) hours if needed for wheezing (cough). 520 mL 09/07/19 Active ketoconazole (NIZOral) 2 % shampoo 12/04/19 25 Active Active Problems Problem Noted Date Diagnosed Date [...] No loss of consciousness. - [facility], underwent [facility] evaluation, no concerning findings including [...] lipid panel 07/2021: The ASCVD Risk score (Fernyangela RICE Jr., et al., 2013) failed to calculate for the following reasons: ? The 2013 ASCVD risk score is only valid for ages 40 to 79 ? The patient has a prior [place] or stroke diagnosis ? A1c: Lab Results [...] lipid panel 07/2021: The ASCVD Risk score ([place] KRYSTAL Jr., et al., 2013) failed to calculate for the following reasons: ? The 2013 ASCVD risk score is only valid for ages 40 to 79 ? The patient has a prior [place] or stroke diagnosis ? A1c: Lab Results [...] esophag itis 08/19/2021 Overview (03/08/2023): - On termite treater PPI, well-controlled - Has GERD symptoms with missed doses, will continue at present though suspect PPI as culprit for persistent hypomagnesemia Assessment & Plan (09/17/2024 10:23 PM EST): - On termite treater PPI, well-controlled - Has GERD symptoms with missed doses, will continue at present though suspect PPI as culprit for persistent hypomagnesemia Assessment & Plan (03/06/2024 11:56 AM EDT): - On half-way PPI, well-controlled - Has GERD symptoms with missed doses, will continue at present though suspect PPI as culprit for persistent hypomagnesemia Assessment & Plan (03/08/2023 9:21 AM EDT): - On half-way PPI, well-controlled - Has GERD symptoms with [...] s/p Removal, Skin Graft: Follows with outside dental scheduling coordinator. Assessment & Plan (03/08/2023 9:18 AM EDT): - History of BCC of the Scalp s/p Removal, Skin Graft: Follows with outside dental scheduling coordinator. Seborrheic keratoses 06/21/2017 Overview (03/15/2022): - Follows [...] cell carcinoma 09/22/2011 Carpal tunnel syndrome 09/22/2011 Resolved Problems Problem Noted Date Diagnosed Date Resolved Date Bronchitis 09/07/2024 09/17/2024 Sinusitis 09/07/2024 09/17/2024 Physical deconditioning 11/13/2022 0703/2023 Other specified disorders of bone density and [...] On Boniva, however no longer available through [facility], prescription is very expensive, she is no longer taking. - She would like to discuss other options with the bone clinic, referral made 02/2022. - Repeat DEXA due 06/2022, ordered 02/2022. 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 jerson fied surface antigen) 06/03/2010,05/26/2009,06/21/2008,06/02,07/02/2005,06/03/2004,06/11/2003 Influenza, Unspecified 05/20/2021 Influenza, high-dose, quadrivalent 05/13,06/03/2020,05/09/2019,05/02,06/18/2017,06/14/2016 Influenza, seasonal, injectable 05/20/2021,06/03,04/22/2019 Pfizer Covid-19 Vaccine 12y+ , Efren Protein, PF, Everardo-Sucrose 05/26/2023 Pfizer-MapMyID COVID-19 Vac cine (Quick Cap) 12+ years (everardo-sucrose) 11/23/2021 Pfizer-BioNomos Softwareech COVID-19 Vac cine (Purple Cap) 12+ 05/20/2021,10/15/2020,09/12/2020 Pneumococcal 20-margaret Conj Vaccine 03/31/2023 Pneumococcal Conjugate PCV 13 07/01/2014 Pneumococcal Polysaccharide PPV23 07/01/2011,07/2002 Tdap 06/23/2017,08/22/2005 Zoster, Recombinant 11/05/2023,04/28/2023 Zoster, live 06/22/2014 Family History Medical History Relation Name Comments Cancer Brother 1 Fuentes Sousaer Coronary artery disease Brother 1 Fuentes Hanna Pancreatic cancer Brother 2 Coronary artery disease Father CP Jacques Glaucoma Father CP Jacques Heart disease Father CP Jacques Cataracts Mother Samia Rheum arthritis Other Cataracts Sister 1 Mirna Austin Macular degeneration Sister 1 Mirna Austin Vision loss Sister 1 Mirna Austin Coronary artery disease Sister 2 Macular degeneration Sister 3 Marti Vision loss Sister 4 Marti Ibrahim Relation Name Status Comments Brother 1 Fuentes Jacques Brother 2 Father CP Jacques Mother Samia Other Sister 1 Mirna Austin Sister 2 Sister 3 Marti Sister 4 Marti Ibrahim Social History Tobacco Use Types Packs/Day Years [...] any time in the past 12 m [facility], were you homeless or living in a longterm (including now)? No 09/02/2024 Utilities Answer Date Recorded In the past 12 months has th e [employer] gas, oil, or water [employer] threatened to shut off services in your home? No 09/02/2024 PHQ-2A Answer Date Recorded Patient Health Questionnaire-2 Score 0 03/08/2023 Comments No Sex and Gender Information Value Date Recorded Sex Assigned at Female 08/29/2021 2:02 PM EST Legal Sex Female 6:41 PM EDT Gender Identity Female 08/29/2021 2:02 PM EST Sexual Orientation Straight 08/29/2021 2: 02 PM EST Last Filed Vital Signs Vital Sign Reading Time Taken Comments Blood Pressure 145/77 09/13/2024 9:38 AM EST rep eat BP Pulse 75 09/13/2024 9:31 AM EST Temperature 36.7 C (98 F) 09/07/2024 9:59 AM EST Respiratory Rate 16 09/13/2024 9:31 AM EST Oxygen Saturation 98% 09/13/2024 9:31 AM EST Inhaled Oxygen Concentration - - Weight 60.6 kg (133 lb 9.6 oz) 09/13/2024 9:31 A M EST Height 152.4 cm (5') 09/13/2024 9:31 AM EST Body Mass Index 26.09 09/13/2024 9:31 AM EST Plan of Treatment Upcoming Encounters Date Type Department Care Team (Late st Contact Info) Description 02/28/2025 2:00 PM EDT Clinical Support [facility] [address] , [address] [place] [address] 03/14/2025 11:00 AM EDT Office Visit [facility] [address], [address] [place] [address] Harry Ashton MD [address] [place] [phone] 03/15/2025 10:00 AM EDT Office Visit [facility] Internal Medicine [address] [place] [address] Arin Contreras DO [address] [place] [address] 04/19/2025 12:45 PM EDT Procedure Visit [facility] [address] [facility] [place] [address] Ainsley Coreas MD [address] [facility] [address] [place] [address] 09/19/2025 1:40 PM EST Office Visit [facility] [address] [place] [address] Sergio Sosa MD [address] [place] [phone] Health Maintenance Due Date Last Done Comments [facility]-Infant/Child/Adol SDOH Screenings 1935 [facility]-RSV Vaccine: 60+ Years or (1 - 1-dose 75+ series) 11/25/2010 [facility]- SDOH Screenings 03/02/2025 [facility]-Adult SDOH Screenings 03/02/2025 09/02/2024 [facility]-Medicare Annual Wellness (AWV) 03/06/2025 03/06/2024 [facility]-Bone Density Scan 08/09/2025 08/09/2024 , 07/28/2023, 07/21/2022, Additional history exists [facility]-Depression Screening 09/13/2025 09/13/2024, 08/23 [facility]-DTaP,Tdap,and Td Vaccines (3 - Td or Tdap) 06/23/2027 06/23/2017, 08/22/2005 [facility]-Pneumococcal Vaccine: 50+ Years Completed 03/31/2023, 07/01/2014, 07/01/2011, Additional history exists [facility]-Zoster Vaccines Completed 11/05/2023, 04/28/2023, 06/22/2014 [id number] Vaccine Discontinued 06/13/2024, 05/26/2023, 05/13/2022, Additional history exists [facility]-Influenza Vaccine Completed 06/13/2024 , 04/28/2023, 05/13/2022, Additional history exists [facility]-Obesity Intervention Completed 025, 09/14/2024, 09/13/2024, Additional history exists HPV Vaccines Aged Out No longer eligi ble based on patient's age to complete this topic [facility]-HIB Vaccines Aged Out No longer e ligible based on patient's age to complete this topic [facility]-Hepatitis A Vaccines Aged Out No longer eligible based on patient's age to complete this topic [facility]-IPV Vaccines Aged Out No longer e ligible based on patient's age to complete this topic [facility]-Rotavirus Vaccines Aged Out No lo nger eligible based on patient's age to complete this topic Medical Devices Implanted Type Area Operations Tech Device Identifier Shelf Expiration Date Model / Serial / Lot Stent Coronary Resolute Luis Eduardo Rx 3.00mm X 18mm - [id number] Implanted:Qty: 1 on 08/18/2021 by [employer] at [facility] ITema [id number] 06/11/2024 [id number] / / [id number] Procedures Procedure Name Priority Date/Time Associated Diagnosis Comments OCT, RETINA - OU - BOTH EYES Routine 01/11/2025 10:55 PM EDT 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 us Ainsley Coreas MD OPH CLINIC PROCEDURES Final Result * Dexa Bone Density (08/09/2024 10:10 AM EST) Anatomical Region Laterality Modality L-spine Radiographic Ciara ging Narrative 08/13/2024 9:10 PM EST [facility] [address] [place] [address] DXA Bone Densitometry Report: [Date of exam] BMD test performed using the Aditive DXA System (analysis version: 14.10) manufactured by [employer] REFERRING PROVIDER: Dr. Trina Riley PA CLINICAL INFORMATION: PATIENT NAME: Ana Varela PATIENT AGE: 88 y.o. LEGAL SEX: female RADIOGRAPHIC VIEWS: Sites scanned: AP Spine, HIP Right , HIP Left, and RADIUS Left COMPARISON STUDY: DXA Axial 2022 FINDINGS: Based on WHO criteria (post-menopausal female) the diagnosis is Osteoporosis The lowest T score is -3.9 in the Forearm The presence of arthritic or degenerative joint changes in the spine could artefactually increase measured BMD. The number of available measurements/sites limits adequate interpretation TBS: The TBS L1-L4 of 1.385 indicates normal microarchitecture TREATMENT RECOMMENDATIONS: Measured bone density crosses threshold for treatment of osteoporosis Specific anti-osteoporotic therapy remains indicated given high risk of future fracture Treatment decisions should be based on clinical indications. Suggest general measures to optimize calcium and vitamin D status, fall prevention measures and reduce fracture risk. Consider repeating this study in one year or as clinically indicated to assess bone density change or response to treatment. 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
--- NOTE | 2025-01-31 08:26 | XR_ITS ---
FINAL REPORT CLINICAL HISTORY: left foor fx COMPARISON: 01/10/2025 FINDINGS: LEFT FOOT Three views were obtained. There is a healing transverse fracture of the base of the fifth metatarsal, similar to prior. There are advanced hypertrophic changes of osteoarthritis involving the first metatarsophalangeal joint. Well-corticated ossific densities are seen at the lateral joint margin. IMPRESSION: Healing fracture as above, similar to prior. Reviewed, Interpreted and Dictated by Paul Haley MD Transcribed by Trena Phelps Authenticated and [facility]
== END 2025-01-31 23:59 | disposition home or self-care (01) ==
LOC: RAD 08:21
PROVIDERS: PCP Internal Medicine; Visit Provider Physician Assistant Surgical
DX: S92.352A Displaced fracture of fifth metatarsal bone, left foot, initial encounter for closed fracture (principal); X58.XXXA Exposure to other specified factors, initial encounter; M19.072 Primary osteoarthritis, left ankle and foot
CPT/HCPCS: 73630

== ENCOUNTER 2025-02-10 09:48 | Emergency (ER) | payer MEDICARE, SELFPAY ==
--- OUTSIDE RECORDS SUMMARY | 2025-01-11 08:25 | XMS_ITS | Encounter Summary ---
Author Organization [facility] Address [address] [place] [address] Care Team Providers Care Regional Sales Engineer Name Role Phone Ben Arin Francois DO Primary Care Provider [phone] Brooklyn Olmedo MD Unavailable [phone] Encounter Details Date Type Department Care Team (Late st Contact Info) Description 01/11/2025 8:25 AM EDT Ancillary Procedure [facility] [address] [place] [address] Social History Tobacco Use Types Packs/Day [...] place to sleep or slept in a longterm (including now)? No 09/21/2023 PHQ-9 Answer Date [...] any time in the past [address] [facility], were you homeless or living in a longterm (including now)? No 09/02/2024 Utilities Answer Date Recorded In the past 12 months has th e [employer], gas, oil, or water [email or web address] threatened to shut off services in your [...] By [facility] [address], 1st [place] [address] 03/14/2025 11:00 AM EDT Office Visit [facility] [place], [facility] [address], [address] [place] [address] Harry Ashton MD [address] [place] [address] 03/15/2025 10:00 AM EDT Office Visit [facility] Internal Medicine [address], 3rd [place] [address] Arin Contreras, [address] [place] [address] 04/19/2025 12:45 PM EDT Procedure Visit [facility] [address] [facility] [place] [address] Ainsley Coreas MD [address] [facility] [address] [place] [address] 09/19/2025 1:40 PM EST Office Visit [facility] [place] [address] [facility] [place] [address] Sergio Sosa MD [address] [place] [phone] documented as of this encounter Procedures Procedure [...] documented as of this encounter Care Teams Regional Sales Engineer Relationship Specialty Start Date End Date Arin Contreras DO [address] [place] [address] PCP - General Internal Medicine 11/03/21 Brooklyn Olmedo MD [address] [place] [address] PCP - Resident Internal Medicine 03/08/23 02/18/25 documented as of this encounter
--- OUTSIDE RECORDS SUMMARY | 2025-01-11 14:30 | XMS_ITS | Encounter Summary ---
Author Organization [facility] Address [address] 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 Procedures GA AFLIBERCEPT INJECTION Ainsley Coreas MD [address] [address] Phone: tel: fax: Referral ID Status Reason Start Date Expiration Date V isits Requested Visits Authorized [id number] Authorized 01/11/2025 07/13/2026 1 1 Reason for Visit * Reason Comments Blurred Vision Encounter Details Date Type Department Care Team (Latest Contact Info) Description 01/11/2025 2:30 PM EDT Procedure Visit [facility] 110 [place] [address] Ainsley Coreas MD [address] [address] Central retinal vein occlusion with [...] place to sleep or slept in a intermediate (including now)? No 09/21/2023 PHQ-9 Answer Date [...] any time in the past 12 m [facility], were you homeless or living in a intermediate (including now)? No 09/02/2024 Utilities Answer Date [...] acuity (VA) is stable. Last edited by Ainlsey Coreas MD on 01/11/2025 10:50 PM. Referring [...] disorder, single episode, unspecified Depression Myocardial infarction ([facility]) 07/2021 Other seborrheic keratosis Seborrheic keratoses Other [...] 2 MG/0.05ML Route: Intravitreal, Site: Left Eye [facility]: 13148-786-55, Lot: [id number], Expiration date: 03/10/2026 Post-op Post injection exam [...] Description 02/28/2025 2:00 PM EDT Clinical Support [facility] [address] [facility] [address] [facility], 1st [place] [phone] 03/14/2025 11:00 AM EDT Office Visit [facility] [address], [address] [place] [address] Harry Ashton MD [address] [facility] [address] [place] [address] 03/15/2025 10:00 AM EDT Office Visit [facility] Internal Medicine [address], 3rd [place] [phone] Arin Contreras, [address] [place] [address] 04/19/2025 12:45 PM EDT Procedure Visit [facility] [address] [facility] [place] [address] Ainsley Coreas MD [address] [facility] [address] [place] [address] 09/19/2025 1:40 PM EST Office Visit [facility] [place] Johnny [address] [facility] [place] [address] Sergio Sosa MD [address] [place] [address] documented as of this encounter [...] 2 MG/0.05ML Route: Intravitreal, Site: Left Eye [facility]: [id number], Lot: [id number], Expiration date: 03/10/2026 Post-op Post injection exam [...] documented as of this encounter Care Teams Body Corporate Manager Relationship Specialty Start Date End Date Arin Contreras DO [address] [address] PCP - General Internal Medicine 11/03/21 Brooklyn Olmedo MD [address] [place] [address] PCP - Resident Internal Medicine 03/08/23 02/18/25 documented as of this encounter
[2025-02-10] VITALS (8 sets, daily range): BP systolic 133–165; BP diastolic 59–82; PULSE 64–78; RESP 12–20; TEMP 36.6–37.1; O2SAT 90–99; BMI 31.6
--- NOTE | 2025-02-10 09:55 | HMH.EDGENADL ---
Discharge Plan Disposition Patient Disposition: Home, Self-Care Condition: Fair Prescriptions Prescriptions: New nystatin 100,000 unit/gram powder 1 applic topical DAILY Qty: 15 0RF No Action atorvastatin 40 mg tablet 40 mg PO DAILY cetirizine [Zyrtec] 10 mg Tablet 10 mg PO DAILY clopidogrel 75 mg tablet 75 mg PO DAILY amlodipine 5 mg tablet 5 mg PO DAILY pantoprazole 40 mg tablet,delayed release (DR/EC) 40 mg PO DAILY sertraline 25 mg tablet 25 mg PO DAILY mupirocin 2 % ointment 1 applic TOPICAL BID Patient Comments: APPLY TOPICALLY TO THE AFFECTED AREA TWICE DAILY NEEDED albuterol sulfate 90 mcg/actuation HFA aerosol inhaler 2 puff INHALATION Q4HP PRN (Reason: Wheezing) Patient Comments: INHALE 2 PUFFS BY MOUTH EVERY 4 HOURS NEEDED FOR WHEEZING OR SHORTNESS OF BREATH fluticasone propionate [Flovent HFA] 110 mcg/actuation HFA aerosol inhaler 1 puff INHALATION DAILY multivitamin Tablet 1 tab PO DAILY fluticasone propionate [Flonase] 50 mcg/actuation [place],Suspension 1 spray INTRANASAL DAILY Rx Instructions: administer into each nostril albuterol sulfate 2.5 mg/0.5 mL Solution For Nebulization 2.5 mg INHALATION DAILYP PRN (Reason: SOA) Rx Instructions: for up to 3 doses cholecalciferol (vitamin D3) [Vitamin D3] 125 mcg (5,000 unit) Tablet 125 mcg PO WEEKLY Arnuity Ellipta 100 mcg/actuation blister with device 1 inh INHALATION DAILY Referrals Follow up/Referrals: Arin Contreras DO [Primary Care Provider, Medical] - See instructions Activity Restrictions/Add. Instructions Additional Instructions/Restrictions: Use your incentive spirometer 10 times every hour you are awake for the next 3 days to help promote coughing up your secretions. Use your albuterol inhaler 4 puffs or your nebulizer every 4 hours for the next 2 days to help promote coughing up your secretions. Use nystatin powder as prescribed. Follow-up with your primary care provider about cystic areas in your adnexa. Return to the emergency department if patient develops worsening fatigue fever or trouble breathing. Clinical Impressions Clinical Impression: Bronchitis Instructions Patient Instructions: DI for Acute Bronchitis Print Language Print Language: Khmer Discharge ED Provider: Dinah Muñoz General Adult HPI General Chief complaint: Upper Respiratory Infection Stated complaint: Cough, Low grade fever, weakness Time Seen by Provider: 02/10/25 09:55 History of Present Illness HPI narrative: Patient is an 89-year-old with past medical history significant for basal cell carcinoma with recent removal, asthma hypertension presents to the emergency department with generalized weakness and cough for the last week. Cough is productive associated shortness of breath increased weakness since her basal cell carcinoma removal that was performed under local lidocaine. Patient's daughter is a nurse and noted that her lung sounds were abnormal. Patient is usually very active and has been more fatigued recently. Tmax at home 99.6 Fahrenheit. Patient denies pain urinary urgency frequency. Wears a depends for incontinence. Related Data Home Medications ?Medication ?Instructions ?Recorded ?Confirmed albuterol sulfate 2.5 mg/0.5 mL 2.5 mg inhalation DAILYP PRN SOA 01/16/24 01/31/25 solution for nebulization albuterol sulfate 90 mcg/actuation 2 puff inhalation Q4HP PRN Wheezing 01/16/24 01/31/25 aerosol inhaler amlodipine 5 mg tablet 5 mg PO DAILY 01/16/24 01/31/25 atorvastatin 40 mg tablet 40 mg PO DAILY 01/16/24 01/31/25 cetirizine 10 mg tablet (Zyrtec) 10 mg PO DAILY 01/16/24 01/31/25 cholecalciferol (vitamin D3) 125 125 mcg PO WEEKLY 01/16/24 01/31/25 mcg (5,000 unit) tablet (Vitamin D3) clopidogrel 75 mg tablet 75 mg PO DAILY 01/16/24 01/31/25 fluticasone furoate 100 1 inh inhalation DAILY 01/16/24 01/31/25 mcg/actuation blister powder for inhalation (Arnuity Ellipta) fluticasone propionate 110 1 puff inhalation DAILY 01/16/24 01/31/25 mcg/actuation HFA aerosol inhaler fluticasone propionate 50 1 spray intranasal DAILY 01/16/24 01/31/25 mcg/actuation nasal spray,suspension multivitamin 1 tab PO DAILY 01/16/24 01/31/25 mupirocin 2 % topical ointment 1 applic topical BID 01/16/24 01/31/25 pantoprazole 40 mg tablet,delayed 40 mg PO DAILY 01/16/24 01/31/25 release sertraline 25 mg tablet 25 mg PO DAILY 01/16/24 01/31/25 Previous Rx's ?Medication ?Instructions ?Recorded nystatin 100,000 unit/gram topical 1 applic topical DAILY #15 grams 02/10/25 powder Allergies Allergy/AdvReac Type Severity Reaction Status Date / Time codeine Allergy Other Verified 01/31/25 09:27 meperidine Allergy Other Verified 01/31/25 09:27 Penicillins AdvReac Mild Hives Verified 01/31/25 09:27 sulfacetamide AdvReac Mild Hives Verified 01/31/25 09:27 red dye AdvReac Rash Verified 01/31/25 09:27 [facility] Disclaimer: The information contained in this section may have been updated after the patient was seen, as this information can be updated by other users. Medical History Anxiety Urinary tract infection History of gastroesophageal reflux (GERD) Migraine History of anemia Asthma History of heart attack Hyperlipidemia Hypertension Social History Smoking Status: Never smoker alcohol intake: never current occupational status: retired Travel in the last 8 weeks?: None Have you lived/traveled outside US in past 30 days?: No Contact w/someone who lives/traveled outside US past 30 days?: No Exposure to someone with infectious disease in past 14 days?: No Do you have a fever (greater than 100.4 F or 38 C)?: No Have you tested positive for COVID-19?: No Exposed to someone with COVID-19 in past 14 days?: No Do you have a sore throat?: No Do you have a cough?: No Do you have any weakness?: No Do you have any diarrhea?: No Are you experiencing any unusual bleeding?: No Do you have any muscle aches/pain?: No Do you have any abdominal pain?: No Are you experiencing loss of taste or smell?: No Other Medical History Have you received the Pneumonia Vaccine: Yes ROS Obtained: Yes All systems reviewed & no additional complaints except as documented Physical Exam General General appearance: alert and in no apparent distress Head Head exam: atraumatic and other (actinic keratoses of the scalp recent sutures in place clean dry and intact) Eye Eye exam: Present normal appearance and PERRL ENT ENT exam: Present normal exam and normal oropharynx Neck Neck exam: Present trachea midline Chest Chest inspection: Present normal inspection and symmetric chest wall rise Respiratory Respiratory exam: Present other (Inspiratory crackles bilateral bases) Cardiovascular Cardiovascular exam: Present regular rate and normal rhythm Abdominal Exam Abdominal exam: Present soft and tenderness (Right upper quadrant) External exam: Present erythema (Malodorous erythema in the left intertriginous fold groin) Back Exam Back exam: Present normal inspection; Absent tenderness Neurological Exam Neurological exam: Present alert and oriented X3; Absent CN II-XII intact Skin Skin exam: Present warm and dry Medical Decision Making Medical Records Screening: Per USPSTF and CDC recommendations, given the prevalence of disease in our region, it is our hospital?s policy to screen for HIV and viral Hepatitis for all patients aged 18 and over and those with ongoing risk factors. [place] Inquiry Pt receiving controlled substance: No Vital Signs: 02/10/25 10:01 02/10/25 10:18 02/10/25 10:30 Temperature 98.8 F 98.8 F Temperature Source Oral Oral Pulse Rate 78 70 Pulse Rate [Right] 78 Respiratory Rate 16 16 12 Blood Pressure 165/66 H 153/65 H Blood Pressure [Right Arm] 165/66 H Blood Pressure Mean Blood Pressure Mean [Right Arm] 99 Blood Pressure Source Automatic Cuff Blood Pressure Source [Right Arm] Automatic Cuff Blood Pressure Position Supine Blood Pressure Position [Right Arm] Supine 02 Sat by Pulse Oximetry 97 97 98 Oxygen Delivery Method Room Air Room Air 02/10/25 11:00 02/10/25 11:31 02/10/25 12:00 Temperature Temperature Source Pulse Rate 70 64 72 Pulse Rate [Right] Respiratory Rate 16 20 16 Blood Pressure 147/82 H 147/59 H 133/61 Blood Pressure [Right Arm] Blood Pressure Mean 103 88 85 Blood Pressure Mean [Right Arm] Blood Pressure Source Blood Pressure Source [Right Arm] Blood Pressure Position Blood Pressure Position [Right Arm] 02 Sat by Pulse Oximetry 99 96 98 Oxygen Delivery Method 02/10/25 12:30 02/10/25 13:23 Temperature 98 F Temperature Source Pulse Rate 69 68 Pulse Rate [Right] Respiratory Rate 18 18 Blood Pressure 137/69 145/70 H Blood Pressure [Right Arm] Blood Pressure Mean 77 Blood Pressure Mean [Right Arm] Blood Pressure Source Blood Pressure Source [Right Arm] Blood Pressure Position Blood Pressure Position [Right Arm] 02 Sat by Pulse Oximetry 96 Oxygen Delivery Method Lab Data Lab Results 02/10/25 10:08: Chlamy pneumoniae PCR Not detected, Adenovirus (PCR) Not detected, B. pertussis DNA (PCR) Not detected, Coronavirus OC43 (PCR) Not detected, Coronavirus HKU1 (PCR) Not detected, Coronavirus 229E (PCR) Not detected, SARS-CoV-2 (PCR) Not detected 02/10/25 10:08: SARS-CoV-2 (PCR) Not detected, Coronavirus NL63 (PCR) Not detected, Human Metapneumovir PCR Not detected, Influenza A (H1) PCR Not detected, Influ A (H1N1/09) PCR Not detected, Influenza A (H3) PCR Not detected, Influenza Type A (PCR) Not detected, Influenza A Untype (PCR) Not detected, Influenza Type B (PCR) Not detected 02/10/25 10:08: Influenza Type B (PCR) Not detected, M. pneumoniae (PCR) Not detected, Parainfluenza 1 (PCR) Not detected, Parainfluenza 2 (PCR) Not detected, Parainfluenza 3 (PCR) Detected A, Parainfluenza 4 (PCR) Not detected, RSV (PCR) Not detected, Entero/Rhino (PCR) Not detected 02/10/25 10:10: WBC 5.5, RBC 3.93 L, Hgb 11.3 L, Hct 35.3 L, MCV 89.8, MCH 28.8, MCHC 32.0, RDW 14.6, Plt Count 149, MPV 11.2 H, Neut % (Auto) 63.0, Lymph % (Auto) 23.3, [place] % (Auto) 7.2, Eos % (Auto) 5.7, Baso % (Auto) 0.6, Neut # (Auto) 3.4, Lymph # (Auto) 1.3, [place] # (Auto) 0.4, Eos # (Auto) 0.3, Baso # (Auto) 0.0, VBG Lactic Acid Cancelled, Sodium 141, Potassium 4.2, Chloride 107, Carbon Dioxide 23, Anion Gap 15.2 H, BUN 22 H, Creatinine 1.00, Estimated Creat Clear 49, Estimated GFR 52 L, Est GFR ( Amer) 63, Glucose 102 H, Calcium 8.4, Magnesium 1.6, Total Bilirubin 0.6, AST 26, ALT 17, Alkaline Phosphatase 70, Troponin I < 0.01, Total Protein 6.5, Albumin 4.2, Globulin 2.3, Albumin/Globulin Ratio 1.8, Lipase 25, HCV Ab GAYLA w/Rflx PCR Qn Negative, HIV Ag/Ab Combo Qual Negative 02/10/25 10:25: Urine Color Yellow, Urine Appearance Clear, Urine pH 6.5, Ur Specific [place] 1.010, Urine Protein Negative, Urine Glucose (UA) Negative, Urine Ketones Negative, Urine Blood Negative, Urine Nitrate Negative, Urine Bilirubin Negative, Urine Urobilinogen 0.2, Ur Leukocyte Esterase Negative, Urine RBC None, Urine WBC 3-5, Ur Squamous Epith Cells 3-5, Urine Bacteria None 02/10/25 10:10 02/10/25 10:10 Orders (Tests/Meds): ED MEDICATIONS Discontinued Medications Generic Name Dose Route Start Last Admin Trade Name Freq PRN Reason Stop Dose Admin Iopamidol 70 ml 02/10/25 11:19 02/10/25 11:20 Iopamidol-370 (76%);100ml Bottle IV 02/10/25 11:20 70 ml ONCE ONE Administration Sodium Chloride 10 ml 02/10/25 11:19 02/10/25 11:20 Sodium Chloride 0.9% 10ml Syr (Rad Only) IV 03/12/25 11:18 10 ml NEEDED PRN Administration Maintain IV Site Sodium Chloride 50 ml 02/10/25 11:19 02/10/25 11:20 0.9 % Sodium Chloride 50 Ml Vial IV 02/10/25 11:20 50 ml ONCE ONE Administration ORDERS Category Date Time Status CT abdomen pelvis w con Stat Cat Scan 02/10/25 10:[address] angio chest PE protocol Stat Cat Scan 02/10/25 10:05 Completed XR chest portable Stat Exams 02/10/25 10:05 Completed Complete Blood Count Auto Diff Stat Lab 02/10/25 10:10 Completed Comprehensive Metabolic Panel Stat Lab 02/10/25 10:10 Completed Full Resp Panel w/COVID ([facility]) Routine Lab 02/10/25 10:08 Completed HIV Combo Stat Lab 02/10/25 10:10 Completed Hepatitis C Ab Qual. W/ RFX Stat Lab 02/10/25 10:10 Completed Lipase Stat Lab 02/10/25 10:10 Completed Magnesium Stat Lab 02/10/25 10:10 Completed Rapid PCR Covid and Flu A/B Stat Lab 02/10/25 10:08 Completed Troponin I Stat Lab 02/10/25 10:10 Completed UA [Urinalysis and Microscopic] Stat Lab 02/10/25 10:25 Completed Medical Decision Narrative: In summary, this 89-year-old female presents to the emergency department today with cough generalized. On initial evaluation patient is hemodynamically stable saturating appropriately on room air afebrile no acute distress. Differential diagnosis includes but is not limited to pneumonia viral syndrome cholecystitis pancreatitis urinary tract infection pyelonephritis. Based on these concerns, I ordered CBC CMP chest x-ray troponin UA lipase CT PE CT abdomen pelvis with IV contrast EKG. ECG personally interpreted demonstrates normal sinus rhythm no ST elevation ST depression or T wave inversions concerning for ischemia. Patient received 500 cc LR for treatment. Labs personally reviewed demonstrate Positive for parainfluenza, stable anemia no leukocytosis, UA without infectin. Imaging personally interpreted demonstrate no focal consolidation on chest x-ray, debris within the right bronchus on CT PE. On reevaluation patient continues to saturate appropriately on room air. Patient has a yeast infection in her intertriginous fold that she was prescribed nystatin powder for. Instructed family that patient does not have a focal consolidation on chest x-ray or CT lower suspicion for the need of antibiotics at this time. Informed patient of cysts within abdomen and recommended close follow-up with patient's primary care provider for malignancy screening. Instructed patient to use incentive spirometer 10 times every hour awake to promote airway clearance. Also recommended doing albuterol nebulizer or albuterol treatments every 4 hours to promote airway clearance. Strict return precautions including fatigue fever decreased p.o. intake or trouble breathing were given to patient and family and they were agreeable discharge at this time. Critical Care Critical Care Time Critical Care Time: No
--- NOTE | 2025-02-10 09:58 | ECG_ITS ---
APPROVED REPORT Exam: Resting ECG HR:79 bpm ECG Measurements Heart Rate 79 AXES LA 155 P 9 QRSd 73 QRS 3 QT 347 T 15 QTc 382 Conclusion SINUS RHYTHM LOW QRS VOLTAGE IN PRECORDIAL LEADS [QRS DEFLECTION < 1.0 mV IN CHEST LEADS] POSSIBLE ANTERIOR MYOCARDIAL INFARCTION , PROBABLY OLD [30 ms Q WAVE IN V3/V4, OR R < 0.2 mV IN V4] BORDERLINE ECG UNCONFIRMED REPORT Electronically signed by : ANTOINE ORCK, 02/12/2025 06:35:44
--- NOTE | 2025-02-10 10:05 | CT_ITS ---
PROCEDURE INFORMATION: Exam: CTA Chest With Contrast Exam date and time: 02/10/2025 11:21 AM Age: 89 years old Clinical indication: Shortness of breath; Additional info: SOA TECHNIQUE: Imaging protocol: Computed tomographic angiography of the chest with contrast. Exam focused on the arteries. 3D rendering (Not supervised by radiologist): MIP and/or 3D reconstructed images were created by the technologist. Radiation optimization: All CT scans at this facility use at least one of these dose optimization techniques: automated exposure control; mA and/or kV adjustment per patient size (includes targeted exams where dose is matched to clinical indication); or iterative reconstruction. Contrast material: ISO 370; Contrast volume: 70 ml; Contrast route: INTRAVENOUS (IV); COMPARISON: CR XR CHEST PORTABLE 04/07/2024 12:09 PM FINDINGS: Pulmonary arteries: Normal. No pulmonary emboli. Aorta: Unremarkable. No aortic aneurysm. No aortic dissection. Lungs: Lee dependent change and streaky subsegmental atelectasis is noted in the lungs. Inspissated secretions obstruct right lower lobe segmental bronchi. Along the left upper lobe convexity on series 5 image 67 there is a 3 mm subpleural nodule. In the anterior aspect of the left lung apex on series 5, image 34 there is a 3 mm subpleural nodule. Along the minor fissure on series 5, image 55 there are 2-3 mm nodules noted. In the right middle lobe on series 5, image 59 there is a 3 mm nodule present. Pleural spaces: Unremarkable. No pneumothorax. No pleural effusion. Heart: Unremarkable. No cardiomegaly. No pericardial effusion. Coronary arteries: Scant coronary artery calcification is present. Lymph nodes: Calcific mediastinal and left hilar lymphadenopathy is noted. Kidneys: There is renal cortical thinning and calcific splenic granulomas incidentally noted as well as a vague subcapsular enhancing lesion in the inferior aspect of the right hepatic lobe measuring 6 x 6 mm. Bones/joints: Degenerative changes are noted in the bones. Soft tissues: Unremarkable. IMPRESSION: No evidence for pulmonary embolism. 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 Pulmonary nodules as noted. Basilar atelectasis. Inspissated secretions obstructing right lower lobe segmental bronchi. Recommend follow-up CT Chest in 6-12 months. (References: Debra) References: Thea Charles et al. Guidelines for Management of Incidental Pulmonary Nodules Detected on CT Images: From the Fleischner Society 2017. Radiology. 2017;284(1):228-243. References: Tali J, et al. Updated Fleischner Society Guidelines for Managing Incidental Pulmonary Nodules: Common Questions and Challenging Scenarios. Radiographics. 2018;38(5):1575-8020.
--- NOTE | 2025-02-10 10:05 | CT_ITS ---
PROCEDURE INFORMATION: Exam: CT Abdomen And Pelvis With Contrast Exam date and time: 02/10/2025 11:21 AM Age: 89 years old Clinical indication: Abdominal pain; Additional info: Ruq pain TECHNIQUE: Imaging protocol: Computed tomography of the abdomen and pelvis with contrast. 3D rendering (Not supervised by radiologist): MIP and/or 3D reconstructed images were created by the technologist. Radiation optimization: All CT scans at this facility use at least one of these dose optimization techniques: automated exposure control; mA and/or kV adjustment per patient size (includes targeted exams where dose is matched to clinical indication); or iterative reconstruction. Contrast material: ISOVUE; Contrast volume: 75 ml; Contrast route: IV; COMPARISON: CT BONY PELVIS 09/20/2023 10:57 AM FINDINGS: Lungs: Streaky and gravity dependent changes noted at the lung bases. Diaphragm: There is a small hiatal hernia. Liver: Normal. No mass. Gallbladder and biliary ducts: The gallbladder is partially contracted. Pancreas: Normal. No ductal dilation. Spleen: Calcific splenic granulomas and tiny cysts are noted. Adrenal glands: Normal. No mass. Kidneys and ureters: The kidneys enhance symmetrically and there is no hydronephrosis. There is normal renal cortical thinning and parapelvic cysts. Stomach and bowel: There is no evidence for small bowel obstruction. Colonic diverticulosis is noted. Appendix: No evidence of appendicitis. Intraperitoneal space: Unremarkable. No free air. No significant fluid collection. Vasculature: The abdominal aorta is tortuous in course but normal in caliber with heavy calcific atheromatous plaque. Lymph nodes: Unremarkable. No enlarged lymph nodes. Urinary bladder: Unremarkable as visualized. Reproductive: Adnexal cysts are noted largest on the left measuring 5.4 x 4.8 x 4.8 cm. Suggest pelvic ultrasound or MRI of the pelvis with and without intravenous contrast to further assess. Bones/joints: Degenerative changes are noted in the bones with a dextroconvex curvature of the lumbar spine. Soft tissues: Unremarkable. IMPRESSION: No acute intra-abdominal process. Diverticulosis. Renal cortical thinning and cysts. No further imaging follow-up necessary. Hiatal hernia. Adnexal cystic lesions for which pelvic ultrasound or MRI of the pelvis with and without contrast and suggest further assess. Granulomatous disease and tiny cysts in the spleen. COMMENTS: Consistent with the [place] [employer]'s Incidental Findings Committee white paper (J Am Yong Radiol 2018): Any incidental renal lesion less than 1 cm or classified as too small to characterize, or any incidental cystic renal lesion characterized as simple-appearing, is likely benign. No follow-up imaging is recommended for these lesions per consensus recommendations based on imaging criteria.
--- NOTE | 2025-02-10 10:05 | XR_ITS ---
PROCEDURE INFORMATION: Exam: XR Chest Exam date and time: 02/10/2025 11:25 AM Age: 89 years old Clinical indication: Shortness of breath; Additional info: SOA TECHNIQUE: Imaging protocol: Radiologic exam of the chest. Views: 1 view. COMPARISON: CT ANGIO CHEST PE PROTOCOL 02/10/2025 11:21 AM FINDINGS: Lungs: There is no pulmonary consolidation. Pleural spaces: Unremarkable. No pleural effusion. No pneumothorax. Heart/Mediastinum: Unremarkable. No cardiomegaly. Diaphragm: There is elevation of the right hemidiaphragm. Bones/joints: The bones are osteopenic. IMPRESSION: Elevated right hemidiaphragm.
[2025-02-10 10:15] LABS: Coronavirus 19, PCR Not Detected (NotDetected); Influenza A, PCR Not Detected (NotDetected); Influenza B, PCR Not Detected (NotDetected)
--- OUTSIDE RECORDS SUMMARY | 2025-02-10 10:17 | XMS_ITS | Encounter Summary ---
Author Organization [facility] Address [address] [place] [address] Care Team Providers Care Electronics Scale Tester Name Role Phone Ben Arin Francois DO Primary Care Provider [phone] Brooklyn Olmedo MD Unavailable [phone] Encounter Details Date Type Department Care Team [...] place to sleep or slept in a nursing home (including now)? No 09/21/2023 PHQ-9 Answer Date [...] in the past 12 m [facility], were you homeless or living in a nursing home (including now)? No 09/02/2024 Utilities Answer Date [...] 02/28/2025 2:00 PM EDT Clinical Support Professional [facility] [address] [place] [address] 03/14/2025 11:00 AM EDT Office Visit Professional [facility] [address], [address] [place] [address] Harry Ashton MD [address] [place] [address] 03/15/2025 10:00 AM EDT Office Visit [facility] [address] [place] [address] Arin Contreras DO [address] [place] [address] 04/19/2025 12:45 PM EDT Procedure Visit [facility] [address] [place] [address] Ainsley Coreas MD [address] [facility] [address] [place] [address] 09/19/2025 1:40 PM EST Office Visit [facility] [place] [facility] [address] [place] [address] Sergio Sosa MD [address] [place] [address] documented as of this encounter [...] documented as of this encounter Care Teams Electronics Scale Tester Relationship Specialty Start Date End Date Arin Contreras DO [address] [address] PCP - General Internal Medicine 11/03/21 Brooklyn Olmedo MD [address] [place] [address] [phone] PCP - Resident Internal Medicine 03/08/23 02/18/25 documented as of this encounter
--- OUTSIDE RECORDS SUMMARY | 2025-02-10 10:17 | XMS_ITS | Encounter Summary ---
Author Organization [facility] Address [address] [place] [address] Care Team Providers Care Credit Representative Name Role Phone Ben Arin Francois DO Primary Care Provider [phone] Brooklyn Olmedo MD Unavailable [phone] Encounter Details Date Type Department Care Team [...] place to sleep or slept in a skilled nursing (including now)? No 09/21/2023 PHQ-9 Answer Date [...] any time in the past 12 m [facility], were you homeless or living in a skilled nursing (including now)? No 09/02/2024 Utilities Answer Date [...] 02/28/2025 2:00 PM EDT Clinical Support Professional [facility] Laboratory Services [address] [facility], 1st [place] [address] 03/14/2025 11:00 AM EDT Office Visit Professional [facility] [address], [address] [place] [address] Harry Ashton MD [address] [facility] [address] [place] [address] 03/15/2025 10:00 AM EDT Office Visit [facility] Internal Medicine [address], 3rd [place] [address] Arin Contreras DO [address] [place] [address] 04/19/2025 12:45 PM EDT Procedure Visit [facility] [address] [place] [place] [address] Ainsley Coreas MD [address] [place] [address] 09/19/2025 1:40 PM EST Office Visit [facility] [place] Johnny [address] [place] [address] Sergio Sosa MD [address] [place] [address] documented as of this encounter [...] documented as of this encounter Care Teams Credit Representative Relationship Specialty Start Date End Date Arin Contreras DO [address] [address] PCP - General Internal Medicine 11/03/21 Brooklyn Olmedo MD [address] [place] [address] PCP - Resident Internal Medicine 03/08/23 02/18/25 documented as of this encounter
--- OUTSIDE RECORDS SUMMARY | 2025-02-10 10:18 | XMS_ITS ---
Author Organization [facility] Address [address] [place] [address] Care Team Providers Care Communication Engineer Name Role Phone Ben Arin Francois DO Primary Care Provider [phone] Brooklyn Olmedo MD Unavailable [phone] Active Problems Problem Noted Date Diagnosed Date [...] No loss of consciousness. - Went to [facility], underwent trauma evaluation, no concerning findings including [...] 05/20/2021 Influenza, seasonal, injectable 04/22/2019, 06/03/2020, 05/20/2021 Pfizer-[employer] COVID-19 Vaccine (Quick Cap) 12+ years 11/23/2021 [...] lipid panel 07/2021: The ASCVD Risk score ([place] KRYSTAL Jr., et al., 2013) failed to calculate for the following reasons: ? The 2013 ASCVD risk score is only valid for ages 40 to 79 ? The patient has a prior UT or stroke diagnosis ? A1c: Lab Results [...] lipid panel 07/2021: The ASCVD Risk score ([place] KRYSTAL Jr., et al., 2013) failed to calculate for the following reasons: ? The 2013 ASCVD risk score is only valid for ages 40 to 79 ? The patient has a prior UT or stroke diagnosis ? A1c: Lab Results [...] itis 08/19/2021 Overview (03/08/2023): - On termite control technician PPI, well-controlled - Has GERD symptoms with missed doses, will continue at present though suspect PPI as culprit for persistent hypomagnesemia Assessment & Plan (09/17/2024 10:23 PM EST): - On prison PPI, well-controlled - Has GERD symptoms with missed doses, will continue at present though suspect PPI as culprit for persistent hypomagnesemia Assessment & Plan (03/06/2024 11:56 AM EDT): - On prison PPI, well-controlled - Has GERD symptoms with missed doses, will continue at present though suspect PPI as culprit for persistent hypomagnesemia Assessment & Plan (03/08/2023 9:21 AM EDT): - On prison PPI, well-controlled - Has GERD symptoms with [...] s/p Removal, Skin Graft: Follows with outside lokie engineer. Assessment & Plan (03/08/2023 9:18 AM EDT): - History of BCC of the Scalp s/p Removal, Skin Graft: Follows with outside lokie engineer. 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
--- OUTSIDE RECORDS SUMMARY | 2025-02-10 10:18 | XMS_ITS | Clinical Summary ---
Author Organization [facility] Address [address] [place] [address] Care Team Providers Care Forge Shop Machine Repairer Name Role Phone Arin Contreras Priscila AUSTIN Primary Care Provider [phone] Brooklyn Olmedo MD Unavailable [phone] Allergies Active Allergy Reactions Criticality Noted Date [...] 40 MG tabletIndications: Athscl heart disease of [place] coronary artery w/o ang pctrs,Hyperlipidem ia, unspecified [...] No loss of consciousness. - Went to [facility], underwent trauma evaluation, no concerning findings [...] 79 ? The patient has a prior CT or stroke diagnosis ? A1c: Lab Results [...] lipid panel 07/2021: The ASCVD Risk score ([place] KRYSTAL Jr., et al., 2013) failed to calculate for the following reasons: ? The 2013 ASCVD risk score is only valid for ages 40 to 79 ? The patient has a prior CT or stroke diagnosis ? A1c: Lab Results [...] esophag itis 08/19/2021 Overview (03/08/2023): - On ferry terminal agent PPI, well-controlled - Has GERD symptoms with missed doses, will continue at present though suspect PPI as culprit for persistent hypomagnesemia Assessment & Plan (09/17/2024 10:23 PM EST): - On ferry terminal agent PPI, well-controlled - Has GERD symptoms with missed doses, will continue at present though suspect PPI as culprit for persistent hypomagnesemia Assessment & Plan (03/06/2024 11:56 AM EDT): - On fci PPI, well-controlled - Has GERD symptoms with missed doses, will continue at present though suspect PPI as culprit for persistent hypomagnesemia Assessment & Plan (03/08/2023 9:21 AM EDT): - On fci PPI, well-controlled - Has GERD symptoms with [...] s/p Removal, Skin Graft: Follows with outside electrical supervisor. Assessment & Plan (03/08/2023 9:18 AM EDT): - History of BCC of the Scalp s/p Removal, Skin Graft: Follows with outside electrical supervisor. 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 - She would like to discuss other options with the bone clinic, referral made 02/2022. - Repeat DEXA due 06/2022, ordered 02/2022. 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 jerson fied surface antigen) 06/03/2010,05/26/2009,06/21/2008,06/02,07/02/2005,06/03/2004,06/11/2003 Influenza, Unspecified 05/20/2021 Influenza, high-dose, quadrivalent 05/13,06/03/2020,05/09/2019,05/02,06/18/2017,06/14/2016 Influenza, seasonal, injectable 05/20/2021,06/03,04/22/2019 Pfizer Covid-19 Vaccine 12y+ , Efren Protein, PF, Everardo-Sucrose 05/26/2023 Pfizer-BioPre[employer] COVID-19 Vac cine (Quick Cap) 12+ years (everardo-sucrose) 11/23/2021 Pfizer-BioNTech COVID-19 Vac cine (Purple Cap) 12+ 05/20/2021,10/15/2020,09/12/2020 [...] to sleep or slept in a senior living (including now)? No 09/21/2023 PHQ-9 Answer Date [...] any time in the past 12 m [facility], were you homeless or living in a senior living (including now)? No 09/02/2024 Utilities Answer Date [...] Description 02/28/2025 2:00 PM EDT Clinical Support [facility] Laboratory Services [address] [facility] [address], 1st [place] [address] 03/14/2025 11:00 AM EDT Office Visit [facility] [address] [facility] [address], [address] [place] [address] Harry Ashton MD [address] [place] [address] 03/15/2025 10:00 AM EDT Office Visit [facility] Internal Medicine [address], 3rd [place] [address] Arin Contreras, [address] [place] [address] 04/19/2025 12:45 PM EDT Procedure Visit [facility] [address] [place] [address] Ainsley Coreas MD [address] [place] [address] 09/19/2025 1:40 PM EST Office Visit [facility] [place] [address] [place] [address] Sergio Sosa MD [address] [place] [address] Health Maintenance Due Date Last Done Comments [facility]-/Child/Adol SDOH Screenings 1935 UKY-RSV Vaccine: 60+ Years [...] exists [facility]-Zoster Vaccines Completed 11/05/2023, 04/28/2023, 06/22/2014 [id number] Vaccine Discontinued 06/13/2024, 05/26/2023, 05/13/2022, Additional history [...] this topic Medical Devices Implanted Type Area Displayer Merchandise Device Identifier Shelf Expiration Date Model / Serial / Lot Stent Coronary Resolute Luis Eduardo Rx 3.00mm X 18mm - [id number] Implanted:Qty: 1 on 08/18/2021 by [employer] Air Analysis Engineering TechnicianMD at [facility] [employer] [facility]-[id number] 06/11/2024 [id number] / / [id number] Procedures Procedure Name Priority Date/Time Associated [...] 2 MG/0.05ML Route: Intravitreal, Site: Left Eye [facility]: 88517-168-08, Lot: [id number], Expiration date: 03/10/2026 Post-op Post injection exam [...] Ciara ging Narrative 08/13/2024 9:10 PM EST [facility] [address] [place] [address] DXA Bone Densitometry Report: [Date of exam] BMD test performed using the Plix DXA System (analysis version: 14.10) manufactured by [employer]. REFERRING PROVIDER: Dr. Trina Riley PA CLINICAL INFORMATION: PATIENT NAME: Ana Hanna Trachet PATIENT AGE: 88 y.o. LEGAL SEX: female [...] change or response to treatment. 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
[2025-02-10 10:25] LABS: Basophils % 0.6 % (0.1-2.0); Eosinophils # 0.3 Kmm3 (0.0-0.4); Eosinophils % 5.7 % (0.1-12.0); Hematocrit 35.3 % (37.0-47.0); Hemoglobin 11.3 g/dL (12.2-16.2); Immature Granulocytes # 0.01 10^3uL; Immature Granulocytes % 0.2 %; Lymphocytes # 1.3 K/mm3 (0.7-4.5); Lymphocytes % 23.3 % (10-50); Mean Corpuscular Hemoglobin 28.8 pg (27.0-31.2); Mean Corpuscular Volume 89.8 fl (81-99); Mean Platelet Volume 11.2 fl (7.4-10.4); Monocytes # 0.4 K/mm3 (0.1-1.0); Monocytes % 7.2 % (1.7-9.3); Neutrophils # 3.4 K/mm3 (1.8-7.8); Nucleated Red Blood Cells # 0 10^3/uL; Nucleated Red Blood Cells % 0 %; Platelet Count 149 K/mm3 (142-424); Red Blood Count 3.93 M/mm3 (4.20-5.40); Red Cell Distribution Width 14.6 % (11.5-17.5); Red Cell Distribution Width-SD 48.2 fL; White Blood Count 5.5 K/mm3 (4.8-10.8)
[2025-02-10 10:27] LABS: Microscopic, Urine URINE MICROSCOPIC (MICROSCOPIC)
[2025-02-10 10:35] LABS: Albumin Level 4.2 g/dl (3.5-5.0); Chloride 107 mmol/L (98-107); Sodium 141 mmol/L (136-145)
[2025-02-10 10:36] LABS: Potassium 4.2 mmoL/L (3.5-5.1)
[2025-02-10 10:38] LABS: Alanine Aminotransferase 17 U/L (12-78); Albumin/Globulin Ratio 1.8 (1.1-1.8); Alkaline Phosphatase 70 U/L (38-126); Anion Gap 15.2 mEq/L (5-15); Aspartate Amino Transferase 26 U/L (14-36); Bilirubin,Total 0.6 mg/dl (0.2-1.3); Blood Urea Nitrogen 22 mg/dl (7-17); Carbon Dioxide 23 mmol/L (22.0-30.0); Creatinine Clearance Estimated 49 mL/min (50-200); Estimated Glomerular Filt Rate 52 ml/min (>60); GFR (African American) 63 ML/MIN (>60); Globulin 2.3 g/dL (1.3-3.2); Total Protein,Serum 6.5 g/dl (6.3-8.2)
[2025-02-10 10:39] LABS: Calcium 8.4 mg/dl (8.4-10.2); Glucose 102 mg/dl (74-100); Lipase 25 U/L (23-300); Magnesium 1.6 mg/dl (1.6-2.3)
[2025-02-10 10:47] LABS: Appearance,Urine CLEAR (Clear); Bilirubin,Urine Negative (Negative); Blood, Urine Negative (Negative); Color,Urine YELLOW (Yellow); Glucose,Urine (UA) Negative (Negative); Ketones,Urine Negative (Negative); Leukocyte Esterase,Urine Negative (Negative); Nitrate,Urine Negative (Negative); PH,Urine 6.5 (5.0-8.5); Protein,Urine Negative (Negative); Urobilinogen,Urine 0.2 EU/dl (0.2)
[2025-02-10 11:10] LABS: Troponin I < 0.01 ng/ml (0.00-0.034)
--- NOTE | 2025-02-10 11:14 | PC.NURSE ---
pt to RAD @ this time
[2025-02-10] MEDS: SODIUM CHLORIDE 0.9% 10ML SYR (RAD ONLY) 10 ML IV (11:20)
[2025-02-10] MEDS: 0.9 % SODIUM CHLORIDE 50 ML VIAL IV (11:20)
[2025-02-10] MEDS: IOPAMIDOL-370 (76%);100ML BOTTLE 70 ML IV (11:20)
[2025-02-10 11:32] LABS: HIV Combo NEGATIVE (Negative)
[2025-02-10 11:40] LABS: Hepatitis C Ab Qual. W/ RFX NEGATIVE (Negative)
[2025-02-10 13:25] LABS: Adenovirus,PCR Not Detected (NotDetected); Bordetella Pertussis Not Detected (NotDetected); Chlamydophila Pneumoniae, PCR Not Detected (NotDetected); Coronavirus 19, PCR Not Detected (NotDetected); Coronavirus 229E Not Detected (NotDetected); Coronavirus NL63 Not Detected (NotDetected); Coronavirus OC43 Not Detected (NotDetected); Coronovirus HKU1,PCR Not Detected (NotDetected); Human Metapneumovirus Not Detected (NotDetected); Influenza A, PCR Not Detected (NotDetected); Influenza AH1, 2009 Not Detected (NotDetected); Influenza AH1, PCR Not Detected (NotDetected); Influenza AH3,PCR Not Detected (NotDetected); Influenza B, PCR Not Detected (NotDetected); Mycoplasma Pneumoniae, PCR Not Detected (NotDetected); Parainfluenza 1, PCR Not Detected (NotDetected); Parainfluenza 2, PCR Not Detected (NotDetected); Parainfluenza 4, PCR Not Detected (NotDetected); Respiratory Syncytial Virus Not Detected (NotDetected); Rhinovirus/Enterovirus Not Detected (NotDetected)
[2025-02-10 15:45] LABS: Parainfluenza 3, PCR Detected (NotDetected)
== END 2025-02-10 13:24 | disposition home or self-care (01) ==
PROVIDERS: Emergency Provider Student in an Organized Health Care Education/Training Program; PCP Internal Medicine
DX: J20.4 Acute bronchitis due to parainfluenza virus (principal); R53.1 Weakness
CPT/HCPCS: 0223U; 71045; 71275; 74177; 80053; 81001; 83690; 83735; 84484; 85025; 86803; 87389; 87633; 87636; 93005; 99285; Q9967

== ENCOUNTER 2025-02-28 08:35 | Outpatient (CLI) | payer MEDICARE, SELFPAY ==
--- OUTSIDE RECORDS SUMMARY | 2025-01-11 08:25 | XMS_ITS | Encounter Summary ---
Author Organization [facility] Address [address] [place] [address] Care Team Providers Care Pairer Name Role Phone BenArin palomino Priscila AUSTIN Primary Care Provider [phone] Brooklyn Olmedo Unavailable [phone] Encounter Details Date Type Department Care Team (Late st Contact Info) Description 01/11/2025 8:25 AM EDT Ancillary Procedure [facility] [address] [place] [id number] Social History Tobacco Use Types Packs/Day Years Used Date Smoking Tobacco: Never Passive Smoke Exposure: Past Smokeless Tobacco: Never Alcohol Use Standard Drinks/Week Comments Not Currently 0 (1 standard drink = 0.6 oz pure alcohol) Alcoholic Drinks/day: Occasional alcohol use Humiliation, Afraid, Rape, and Kick questionnair e Answer Date Recorded Within the last year, have y ou been afraid of your partner or ex-partner? No 09/02/2024 Within the last year, have y ou been humiliated or emotionally abused in other ways by your partner or ex-partner? No Within the last year, have y ou been kicked, hit, slapped, or otherwise physically hurt by your partner or ex-partner? No 09/02/2024 Within the last year, have y ou been raped or forced to have any kind of sexual activity by your partner or ex-partner? No 09/02/2024 PHQ-2 Answer Date Recorded Patient Health Questionnaire-2 Score 0 09/13/2024 Hunger Vital Sign Answer Date Recorded Within the past 12 months, y ou worried that your food would run out before you got the money to buy more. Never true 09/02/19 25 Within the past 12 months, t he food you bought just didn't last and you didn't have money to get more. Never true 09/02/2024 PRAPARE - Transportation Answer Date Re corded In the past 12 months, has l ack of transportation kept you from medical appointments or from getting medications? No 08/22 In the past 12 months, has l ack of transportation kept you from meetings, work, or from getting things needed for daily living? No 09/02/2024 Housing Stability Vital Sign Answer Jus e Recorded In the last 12 months, was t here a time when you were not able to pay the mortgage or rent on time? No 09/21/2023 In the last 12 months, how many places have you lived? 1 09/21/2023 In the last 12 months, was t here a time when you did not have a steady place to sleep or slept in a alf (including now)? No 09/21/2023 PHQ-9 Answer Date Recorded Patient Health Questionnaire-9 Score 0 09/13/2024 Housing Stability Vital Sign Answer Jus e Recorded In the last 12 months, was t here a time when you were not able to pay the mortgage or rent on time? No 09/02/2024 In the past 12 months, how m any times have you moved where you were living? 0 09/02/2024 At any time in the past 12 m [facility], were you homeless or living in a alf (including now)? No 09/02/2024 Utilities Answer Date Recorded In the past 12 months has th e [employer], gas, oil, or water [employer] threatened to shut off services in your home? No 09/02/2024 PHQ-2A Answer Date Recorded Patient Health Questionnaire-2 Score 0 03/08/2023 Comments No Sex and Gender Information Value Date Recorded Sex Assigned at Female 08/29/2021 2:02 PM EST Legal Sex Female 6:41 PM EDT Gender Identity Female 08/29/2021 2:02 PM EST Sexual Orientation Straight 08/29/2021 2: 02 PM EST documented as of this encounter Plan of Treatment Upcoming Encounters Date Type Department Care Team (Late st Contact Info) Description 02/28/2025 2:00 PM EDT Clinical Support [facility] [place] [address], [address]st [place] [address] 03/14/2025 11:00 AM EDT Office Visit [facility] [place] [address], [address] [place] [address] Harry Ashton MD [address] [place] [address] 03/15/2025 10:00 AM EDT Office Visit [facility] Internal Medicine [address], [address] [place] [address] Arin Contreras, [address] [place] [address] 04/15/2025 10:00 AM EDT Appointment [facility] Radiology [address], [address]st [place] [address] 04/19/2025 12:45 PM EDT Procedure Visit [facility] [address] [place] [address] Ainsley Coreas MD [address] [facility] [address] [place] [address] 09/19/2025 1:40 PM EST Office Visit [facility] [place] Johnny 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 Progression has been stable. Left Eye Quality was good. Progression has worsened. 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
--- OUTSIDE RECORDS SUMMARY | 2025-01-11 14:30 | XMS_ITS | Encounter Summary ---
Author Organization [facility] Address [address] 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 Procedures TX AFLIBERCEPT INJECTION Ainsley Coreas MD [address] [address] Phone: tel: fax: Referral ID Status Reason Start Date Expiration Date V isits Requested Visits Authorized [id number] Authorized 01/11/2025 07/13/2026 1 1 Reason for Visit * Reason Comments Blurred Vision Encounter Details Date Type Department Care Team (Latest Contact Info) Description 01/11/2025 2:30 PM EDT Procedure Visit [facility] [address] [place] [address] Ainsley Coreas MD [address] [address] Central retinal vein occlusion with [...] any time in the past [facility], were [facility] or living [...] disorder, single episode, unspecified Depression Myocardial infarction (CMS/FORMERLY [facility]) 07/2021 Other seborrheic keratosis Seborrheic keratoses Other [...] 2 MG/0.05ML Route: Intravitreal, Site: Left Eye [facility]: 56753-950-48, Lot: [id number], Expiration date: 03/10/2026 Post-op Post injection exam [...] Description 02/28/2025 2:00 PM EDT Clinical Support [facility] Laboratory Services [address], [address]st [place] [id number] 03/14/2025 11:00 AM EDT Office Visit [facility] [address], [address] [place] [address] Harry Ashton MD [address] [place] [address] 03/15/2025 10:00 AM EDT Office Visit [facility] Internal Medicine [address], [address]rd [place] [address] Arin Contreras, [address] [place] [address] 04/15/2025 10:00 AM EDT Appointment [facility] Radiology [address], [address] [place] [address] 04/19/2025 12:45 PM EDT Procedure Visit [facility] [address] [facility] [place] [address] Ainsley Coreas MD [address] [facility] [address] [place] [address] 09/19/2025 1:40 PM EST Office Visit [facility] [place] Johnny [address] [place] [address] Sergio Sosa MD [address] [place] [id number] documented as of this encounter Procedures Procedure [...] 2 MG/0.05ML Route: Intravitreal, Site: Left Eye [facility]: 65315-382-61, Lot: [id number], Expiration date: 03/10/2026 Post-op Post injection exam [...] with macular edema of left eye- Primary Essential (primary) hypertension Unspecified essential hypertension documented in this encounter Administered Medications Inactive [...] documented as of this encounter Care Teams Solids Control Technician Relationship Specialty Start Date End Date Arin Contreras DO [address] [address] PCP - General Internal Medicine 11/03/21 Brooklyn Olmedo [address] [place] [address] [id number] PCP - Resident Internal Medicine 03/08/23 02/18/25 documented as of this encounter
--- OUTSIDE RECORDS SUMMARY | 2025-02-28 08:37 | XMS_ITS | Encounter Summary ---
Author Organization [facility] Address [address] [place] [address] Care Team Providers Care Animal Treatment Investigator Name Role Phone Arin Contreras DO Primary Care Provider [phone] Brooklny Olmedo Unavailable [phone] Reason for Visit * Reason Comments Med Refill Encounter Details Date Type Department Care Team (Late st Contact Info) Description 02/16/2025 Refill [facility] Internal Medicine [address], 3rd [place] [address] Arin Contreras DO [address] [place] [address] Essential (primary) hypertension Social History Tobacco Use Types Packs/Day Years [...] place to sleep or slept in a fpc (including now)? No 09/21/2023 PHQ-9 Answer Date [...] any time in the past 12 m [facility], were you homeless or living in a fpc (including now)? No 09/02/2024 Utilities Answer Date [...] as of this encounter Miscellaneous Notes * Telephone Encounter - Soledad Sterling, PharmD - 02/19/2025 10:45 AM EDT 2 medication(s) has been approved per protocol. Please keep upcoming appointment for additional refills. Medications have been pended for refill atupcoming appointment. documented in this encounter Plan of Treatment Upcoming Encounters Date Type Department Care Team (Late st Contact Info) Description 02/28/2025 2:00 PM EDT Clinical Support [facility] Laboratory Services [address] [facility], 1st Floor [place] [phone] 03/14/2025 11:00 AM EDT Office Visit [facility]eral Met[facility] [address] [facility], [address] [place] [address] Harry Ashton MD [address] [facility] [address] [place] [address] 03/15/2025 10:00 AM EDT Office Visit [facility] Internal Medicine [address], 3rd [place] [address] Arin Contreras, DO [address] [place] [address] 04/15/2025 10:00 AM EDT Appointment [facility] [address], 1st [place] [address] 04/19/2025 12:45 PM EDT Procedure Visit [facility] Care [address] [place] [address] Ainsley Coreas MD [address] [facility] [address] [place] [address] 09/19/2025 1:40 PM EST Office Visit [facility] Johnny [address] [place] [address] Sergio Sosa MD [address] [place] [address] documented as of this encounter Visit Diagnoses Diagnosis Essential (primary) hypertension Unspecified essential hypertension Essential (primary) hypertension Unspecified essential hypertension documented in this encounter Additional Health Concerns [...] documented as of this encounter Care Teams Animal Treatment Investigator Relationship Specialty Start Date End Date Arin Contreras DO [address] [phone] PCP - General Internal Medicine 11/03/21 Brooklyn Olmedo [address] [place] [address] PCP - Resident Internal Medicine 03/08/23 02/18/25 documented as of this encounter
--- NOTE | 2025-02-28 08:38 | XR_ITS ---
FINAL REPORT CLINICAL HISTORY: fx f/u COMPARISON: 01/31/2025 FINDINGS: LEFT FOOT Three views of the left foot demonstrate healing transverse fracture of the base of the 5th metatarsal. There are advanced hypertrophic changes of osteoarthritis at the 1st MTP joint. Prominent osteophyte formation is noted. The soft tissues are unremarkable. IMPRESSION: Healing fracture base of the 5th metatarsal. Reviewed, Interpreted and Dictated by Paul Haley MD Transcribed by Missy Silver Authenticated and [facility]
--- OUTSIDE RECORDS SUMMARY | 2025-02-28 08:38 | XMS_ITS | Encounter Summary ---
Author Organization [facility] Address [address] [place] [address] Care Team Providers Care Core Drill Operator Name Role Phone Arin Contreras Priscila AUSTIN Primary Care Provider [phone] Brooklyn Olmedo Unavailable [phone] Encounter Details Date Type Department Care Team [...] place to sleep or slept in a mcfp (including now)? No 09/21/2023 PHQ-9 Answer Date [...] any time in the past 12 m [facility], were you homeless or living in a mcfp (including now)? No 09/02/2024 Utilities Answer Date [...] 02/28/2025 2:00 PM EDT Clinical Support Professional [facility] Laboratory Services [address] [facility], 1st [place] [address] 03/14/2025 11:00 AM EDT Office Visit Professional [facility] [address] [facility], [address] [place] [address] Harry Ashton MD [address] [facility] [address] [place] [address] 03/15/2025 10:00 AM EDT Office Visit [facility] Internal Medicine [address], 3rd [place] [address] Arin Contreras DO [address] [place] [address] 04/15/2025 10:00 AM EDT Appointment [facility] [address], 1st [place] [address] 04/19/2025 12:45 PM EDT Procedure Visit [facility] Care [address] [facility] [place] [address] Ainsley Coreas MD [address] [facility] [address] [place] [address] 09/19/2025 1:40 PM EST Office Visit [facility] [place] Johnny [address] [facility] [place] [address] Sergio Sosa MD [address] [place] [address] documented as of this encounter Visit Diagnoses [...] documented as of this encounter Care Teams Core Drill Operator Relationship Specialty Start Date End Date Arin Contreras DO [address] [address] PCP - General Internal Medicine 11/03/21 Brooklyn Olmedo [address] [place] [address] PCP - Resident Internal Medicine 03/08/23 02/18/25 documented as of this encounter
--- OUTSIDE RECORDS SUMMARY | 2025-02-28 08:38 | XMS_ITS | Encounter Summary ---
Author Organization [facility] Address [address] [place] [address] Care Team Providers Care Facing Slitter Name Role Phone Arin Contreras DO Primary Care Provider [phone] Brooklyn Olmedo Unavailable [phone] Reason for Visit * Reason Onset Date Comments [facility] Same Day Appt/Overbook Request 02/11/2025 Encounter Details Date Type Department Care Team (Late st Contact Info) Description 02/11/2025 Telephone [facility] Internal Medicine [address], 3rd [place] [address] Arin Contreras DO [address] [place] [address] [facility] Same Day Appt/Overbook Request Social History Tobacco Use Types Packs/Day Years [...] place to sleep or slept in a detention (including now)? No 09/21/2023 PHQ-9 Answer Date [...] any time in the past 12 m [facility], were you homeless or living in a detention (including now)? No 09/02/2024 Utilities Answer Date [...] encounter Miscellaneous Notes * Telephone Encounter - María Alonzo - 02/13/2025 8:49 AM EDT Called emergency contact and advised the order for MRI has been placed * Telephone Encounter - Arin Contreras DO - 02/12/2025 5:09 PM EDT I reviewed imaging: Adnexal cysts; recommended pelvic MRI. I placed this order. * Telephone Encounter - Arin Contreras DO - 02/12/2025 5:08 PM EDT Reviewed; had CT with these records so we're all good, thank you! * Telephone Encounter - Arin Contreras DO - 02/11/2025 4:51 PM EDT Could we get the records? Want to make sure I order the right MRI. Thank you! * Telephone Encounter - Noemy Eddy - 02/11/2025 12:49 PM EDT Same Day Appt/Overbook Request Reason for Call: Pt needs an ER follow up this week. Pt seen 02/10/25 at [facility] ER dx-Bronchitis. Please call daughter. Thank you Best contact number: [phone] Optimal time of day to reach caller: ANYTIME Additional comments/information from caller: None Note: Please do not reply to this message. Follow-up communication and further actions as a result of this message need to be communicated with the patient directly, if the patient is not active onMyChart. If the patient is active on MyChart, they will receive notification of the communication/outcome via MyChart. documented in this encounter Plan of Treatment Upcoming Encounters Date Type Department Care Team (Late st Contact Info) Description 02/28/2025 2:00 PM EDT Clinical Support [facility] Laboratory Services [address] [facility], 1st [place] [address] 03/14/2025 11:00 AM EDT Office Visit [facility] Bone & Mineral Metabolism [address] [facility], [address] [place] [address] Harry Ashton MD [address] [facility] [address] [place] [address] 03/15/2025 10:00 AM EDT Office Visit [facility] Internal Medicine [address], 3rd [place] [address] Arin Contreras, [address] [place] [address] 04/15/2025 10:00 AM EDT Appointment [facility] [address], 1st [place] [address] 04/19/2025 12:45 PM EDT Procedure Visit [facility] [address] [facility] [place] [address] Ainsley Coreas MD [address] [facility] [address] [place] [address] 09/19/2025 1:40 PM EST Office Visit [facility] [place] Johnny [address] [place] [address] Sergio Sosa MD [address] [place] [address] documented as of this encounter Visit [...] documented as of this encounter Care Teams Facing Slitter Relationship Specialty Start Date End Date Arin Contreras DO [address] [address] PCP - General Internal Medicine 11/03/21 Brooklyn Olmedo [address] [place] [id number] PCP - Resident Internal Medicine 03/08/23 02/18/25 documented as of this encounter
--- OUTSIDE RECORDS SUMMARY | 2025-02-28 08:38 | XMS_ITS | Encounter Summary ---
Author Organization [facility] Address [address] [place] [address] Care Team Providers Care Basket Filler Name Role Phone Arin Contreras Priscila AUSTIN Primary Care Provider [phone] Brooklyn Olmedo Unavailable [phone] Encounter Details Date Type Department Care Team [...] any time in the past 12 m [facility], were you homeless or living [...] 02/28/2025 2:00 PM EDT Clinical Support Professional [facility] Laboratory Services [address] [facility], 1st [place] [address] 03/14/2025 11:00 AM EDT Office Visit Professional [facility] [place] [facility] [address] [facility], [address] [place] [address] Harry Ashton MD [address] [facility] [address] [place] [address] 03/15/2025 10:00 AM EDT Office Visit [facility] Internal Medicine [address], 3rd [place] [address] Arin Contreras DO [address] [place] [address] 04/15/2025 10:00 AM EDT Appointment [facility] [address], 1st [place] [address] 04/19/2025 12:45 PM EDT Procedure Visit [facility] Care [address] [facility] [place] [address] Ainsley Coreas MD [address] [facility] [address] [place] [address] 09/19/2025 1:40 PM EST Office Visit [facility] [place] [address] [facility] [place] [address] Sergio Sosa MD [address] [place] [address] documented as of this encounter Visit Diagnoses [...] documented as of this encounter Care Teams Basket Filler Relationship Specialty Start Date End Date Arin Contreras DO [address] [address] PCP - General Internal Medicine 11/03/21 Brooklyn Olmedo [address] [place] [id number] PCP - Resident Internal Medicine 03/08/23 02/18/25 documented as of this encounter
--- OUTSIDE RECORDS SUMMARY | 2025-02-28 08:38 | XMS_ITS ---
Author Organization [facility] Address [address] [place] [address] Care Team Providers Care Inclusion Paraeducator Name Role Phone Arin Contreras Primary Care Provider [phone] Active Problems Problem Noted Date Diagnosed Date [...] No loss of consciousness. - Went to [facility], underwent trauma evaluation, no concerning findings [...] (Purple Cap) 12+ 09/12/2020, 10/15/2020, 05/20/2021 Pneumococcal 20-margraet Conj Vaccine 03/31/2023 Pneumococcal Conjugate PCV 13 [...] lipid panel 07/2021: The ASCVD Risk score (Ferny KRYSTAL Jr., et al., 2013) failed to calculate for the following reasons: ? The 2013 ASCVD risk score is only valid for ages 40 to 79 ? The patient has a prior WI or stroke diagnosis ? A1c: Lab Results [...] 79 ? The patient has a prior WI or stroke diagnosis ? A1c: Lab Results [...] esophag itis 08/19/2021 Overview (03/08/2023): - On director long term care PPI, well-controlled - Has GERD symptoms with missed doses, will continue at present though suspect PPI as culprit for persistent hypomagnesemia Assessment & Plan (09/17/2024 10:23 PM EST): - On custodial PPI, well-controlled - Has GERD symptoms with missed doses, will continue at present though suspect PPI as culprit for persistent hypomagnesemia Assessment & Plan (03/06/2024 11:56 AM EDT): - On director long term care PPI, well-controlled - Has GERD symptoms with missed doses, will continue at present though suspect PPI as culprit for persistent hypomagnesemia Assessment & Plan (03/08/2023 9:21 AM EDT): - On custodial PPI, well-controlled - Has GERD symptoms with [...] s/p Removal, Skin Graft: Follows with outside certified travel counselor. Assessment & Plan (03/08/2023 9:18 AM EDT): - History of BCC of the Scalp s/p Removal, Skin Graft: Follows with outside certified travel counselor. 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
--- OUTSIDE RECORDS SUMMARY | 2025-02-28 08:38 | XMS_ITS | Encounter Summary ---
Author Organization [facility] Address [address] [place] [address] Care Team Providers Care Offset Assistant Press Operator Name Role Phone Arin Contreras DO Primary Care Provider [phone] [address] Olmedo Unavailable [phone] Reason for Referral * Imaging (Routine) - Pending Review Specialty Diagnoses / Procedures Referred By Rudolph gordillo Referred To Contact Radiology Diagnoses Adnexal cyst Procedures MR Pelvis w and wo IV Contrast Arin Contreras DO [address] [place] [address] Phone: tel: fax: Referral ID Status Reason Start Date Expiration Date V isits Requested Visits Authorized [id number] Pending Review 02/12/2025 08/14/2026 1 1 Encounter Details Date Type Department Care Team (Late st Contact Info) Description 02/12/2025 Orders Only [facility] Internal Medicine [address], [address] [place] [address] Arin Contreras DO [address] [place] [address] Adnexal cyst (Primary Dx) Social History Tobacco Use Types [...] any time in the past 12 m [facility], were you homeless or living in a [...] encounter Miscellaneous Notes * Progress Notes - Arin Contreras DO - 02/12/2025 5:06 PM EDT Adnexal cystic lesions . documented in this encounter Plan of Treatment Upcoming Encounters Date Type Department Care Team (Late st Contact Info) Description 02/28/2025 2:00 PM EDT Clinical Support [facility] Laboratory Services [address], [address]st [place] [address] 03/14/2025 11:00 AM EDT Office Visit [facility] Bone & Mineral Metabolism [address], [address] [place] [address] Harry Ashton MD [address] [place] [address] 03/15/2025 10:00 AM EDT Office Visit [facility] Internal Medicine [address], [address] [place] [address] Arin Contreras DO [address] [place] [phone] 04/15/2025 10:00 AM EDT Appointment [facility] Radiology [address], [address] [place] [address] 04/19/2025 12:45 PM EDT Procedure Visit [facility] [address] [place] [address] Ainsley Coreas MD [address] [place] [address] 09/19/2025 1:40 PM EST Office Visit [facility] Winfred Garland [address] [place] [address] Sergio Sosa MD [address] [place] [address] Scheduled Orders Name Type Priority Associated Diagnoses Orde r Schedule MR Pelvis w and wo IV Contrast Imaging Routine Adnexal cyst Expected: 02/12/2025 (Approximate), Expires: 08/16/2026 documented as of this encounter Visit Diagnoses Diagnosis Adnexal cyst- Primary Essential (primary) hypertension Unspecified essential hypertension [...] documented as of this encounter Care Teams Offset Assistant Press Operator Relationship Specialty Start Date End Date Arin Contreras DO [address] [place] [address] PCP - General Internal Medicine 11/03/21 [address] Olmedo [address] [place] [address] PCP - Resident Internal Medicine 03/08/23 02/18/25 documented as of this encounter
--- OUTSIDE RECORDS SUMMARY | 2025-02-28 08:38 | XMS_ITS | Clinical Summary ---
Author Organization [facility] Address [address] [place] [address] Care Team Providers Care Engineering Teacher Name Role Phone Arin Contreras Primary Care Provider [phone] Allergies Active Allergy Reactions Criticality Noted Date [...] mouth 1 (one) time each day. Active carboxymethylcell ulose PF (Refresh Plus) 0.5 % ophthalmic solution 1 drop if needed for dry eyes. Active cetirizine (ZyrTEC) 10 MG tabletIndications :Allergic rhinitis, unspecified seasonality, unspecified trigger Take 1 tablet (10 mg total) by mouth 1 (one) time each day. 90 tablet 3 023 Active mupirocin (Bactroban) 2 % ointment Apply topically 1 (one) time each day if needed (lesions on scalp). 22 g 2 023 Active fluticasone (Flonase) 50 MCG/ACT nasal sprayIndications: Allergic rhinitis, unspecified seasonality, unspecified trigger Shake gently. Before first use, prime pump. 2 sprays each nostril once daily. After use, clean tip and replace cap. 16 g 2 023 Active fluticasone (Flovent HFA) 110 MCG/ACT inhalerIndication s:Mild intermittent asthma, unspecified whether complicated Rinse mouth with water after use to reduce aftertaste and incidence of candidiasis. Do not swallow. 36 g 024 Active Fluticasone Furoate (Arnuity Ellipta) 100 MCG/ACT aerosol powder Inhale 1 puff 1 (one) time each day. 1 each 024 Active diclofenac (Voltaren) 1 % topical gel Place 2-4 g on the skin 4 (four) times a day if needed (joint pain). Apply as directed to back, painful joints. 50 g 024 Active lidocaine (Lidoderm) 5 % patchIndications: Chronic midline low back pain without sciatica Apply 1 patch topically 1 (one) time each day over 12 hours. Apply to painful area 12 hours per day, remove for 12 hours. 30 patch 024 2024 Active pantoprazole (Protonix) 40 MG EC tabletIndications :Gastro-esophagea l reflux disease without esophagitis Take 1 tablet (40 mg) by mouth 1 (one) time each day before breakfast. 90 tablet 025 Active clopidogrel (Plavix) 75 MG tablet TAKE 1 TABLET BY MOUTH DAILY 90 tablet 024 Active atorvastatin (Lipitor) 40 MG tabletIndications :Athscl heart disease of [place] coronary artery w/o ang pctrs,Hyperlipide doug, unspecified hyperlipidemia type Take 1 tablet (40 mg) by mouth every night. 90 tablet 025 Active Multiple Vitamins-Minerals (EQ MULTIVITAMINS ADULT GUMMY PO) Take 1 Chewable tablet by mouth 1 (one) time each day. Active denosumab (Prolia) 60 MG/ML injection Inject 1 mL (60 mg) under the skin 1 (one) time. Active albuterol 108 (90 Base) MCG/ACT inhalerIndication s:Mild intermittent asthma, unspecified whether complicated Inhale 2 puffs every 4 (four) hours if needed for wheezing or shortness of breath. 8.5 g 11 025 Active albuterol 1.25 MG/3ML nebulizer solutionIndicatio ns:Mild intermittent asthma, unspecified whether complicated Take 3 mL (1.25 mg) by nebulization every 4 (four) hours if needed for wheezing (cough). 520 mL 025 Active ketoconazole (NIZOral) 2 % shampoo 025 Active amLODIPine (Norvasc) 5 MG tabletIndications :Essential (primary) hypertension TAKE 1 TABLET BY MOUTH ONCE DAILY 90 tablet 025 Active sertraline (Zoloft) 25 MG tablet TAKE 1 TABLET BY MOUTH ONCE DAILY 90 tablet 025 Active amLODIPine (Norvasc) 5 MG tabletIndications :Essential (primary) hypertension Take 1 tablet (5 mg) by mouth 1 (one) time each day. 90 tablet 3 024 2024 Discontinued sertraline (Zoloft) 25 MG tablet Take 1 tablet (25 mg) by mouth 1 (one) time each day. 90 tablet 3 024 2024 Discontinued Active Problems Problem Noted Date Diagnosed Date [...] No loss of consciousness. - Went to [facility], underwent trauma evaluation, no concerning [...] Pfizer-BioNTech COVID-19 Vaccine (Quick Cap) 12+ years (everadro-sucrose) 11/23/2021 Pfizer-BioNTech COVID-19 Vaccine (Purple Cap) 12+ [...] panel 07/2021: The ASCVD Risk score (Ferny RICE Jr., et al., 2013) failed to calculate for the following reasons: ? The 2013 ASCVD risk score is only valid for ages 40 to 79 ? The patient has a prior DC or stroke diagnosis ? A1c: Lab Results [...] panel 07/2021: The ASCVD Risk score (Ferny RICE Jr., et al., 2013) failed to calculate for the following reasons: ? The 2013 ASCVD risk score is only valid for ages 40 to 79 ? The patient has a prior DC or stroke diagnosis ? A1c: Lab Results [...] esophag itis 08/19/2021 Overview (03/08/2023): - On jail PPI, well-controlled - Has GERD symptoms with missed doses, will continue at present though suspect PPI as culprit for persistent hypomagnesemia Assessment & Plan (09/17/2024 10:23 PM EST): - On oysterman PPI, well-controlled - Has GERD symptoms with missed doses, will continue at present though suspect PPI as culprit for persistent hypomagnesemia Assessment & Plan (03/06/2024 11:56 AM EDT): - On oysterman PPI, well-controlled - Has GERD symptoms with missed doses, will continue at present though suspect PPI as culprit for persistent hypomagnesemia Assessment & Plan (03/08/2023 9:21 AM EDT): - On oysterman PPI, well-controlled - Has GERD symptoms with [...] s/p Removal, Skin Graft: Follows with outside manufacturing engineer. Assessment & Plan (03/08/2023 9:18 AM EDT): - History of BCC of the Scalp s/p Removal, Skin Graft: Follows with outside manufacturing engineer. Seborrheic keratoses 06/21/2017 Overview (03/15/2022): - [...] Encounters Date Type Department Care Team Description 02/16/2025 Refill [facility] Internal Medicine [address], [address]rd [place] [address] Arin Contreras DO Essential (primary) hypertension 02/12/2025 Orders Only [facility] Internal Medicine [address], [address] [place] [address] Arin Contreras DO Adnexal cyst (Primary Dx) 02/11/2025 Telephone [facility] Internal Medicine [address], [address] [place] [address] Arin Contreras, DO [facility] Same Day Appt/Overbook Request 01/11/2025 2:30 PM EDT Procedure Visit [facility] [address] [place] [phone] Ainsley Coreas MD 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 jerson fied surface antigen) 06/03/2010,05/26/2009,06/21/2008,06/02,07/02/2005,06/03/2004,06/11/2003 Influenza, Unspecified 05/20/2021 Influenza, high-dose, quadrivalent 05/13,06/03/2020,05/09/2019,05/02,06/18/2017,06/14/2016 Influenza, seasonal, injectable 05/20/2021,06/03,04/22/2019 Pfizer Covid-19 Vaccine 12y+ , Efren Protein, PF, Everardo-Sucrose 05/26/2023 Pfizer-BioNTech COVID-19 Vac cine (Quick Cap) 12+ years (everardo-sucrose) 11/23/2021 Pfizer-BioNTech COVID-19 Vac cine (Purple Cap) 12+ 05/20/2021,10/15/2020,09/12/2020 Pneumococcal 20-margaret Conj Vaccine 03/31/2023 Pneumococcal Conjugate PCV 13 07/01/2014 Pneumococcal Polysaccharide PPV23 07/01/2011,07/2002 Tdap 06/23/2017,08/22/2005 Zoster, Recombinant 11/05/2023,04/28/2023 Zoster, live 06/22/2014 Family History Medical History Relation Name Comments Cancer Brother 1 Fuentes Hanna Coronary artery disease Brother 1 Fuentes Hanna [...] place to sleep or slept in a correction (including now)? No 09/21/2023 PHQ-9 Answer Date [...] any time in the past 12 m [facility], were you homeless or living in a correction (including now)? No 09/02/2024 Utilities Answer Date [...] Description 02/28/2025 2:00 PM EDT Clinical Support [facility] Laboratory Services [address], [address]st Floor [place] [phone] 03/14/2025 11:00 AM EDT Office Visit [facility] Bone & Mineral Metabolism [address], [address] [place] [address] Harry Ashton MD [address] [place] [address] 03/15/2025 10:00 AM EDT Office Visit [facility] Internal Medicine [address], [address] [place] [address] Arin Contreras, DO [address] [place] [address] 04/15/2025 10:00 AM EDT Appointment [facility] Radiology [address], [address] [place] [address] 04/19/2025 12:45 PM EDT Procedure Visit [facility] [address] [place] [address] Ainsley Coreas MD [address] [facility] [address] [place] [address] 09/19/2025 1:40 PM EST Office Visit [facility] Jordan Johnny [address] [place] [address] Sergio Sosa MD [address] [place] [address] Health Maintenance Due Date Last Done Comments [facility]-/Child/Adol SDOH Screenings 1935 [facility]-RSV Vaccine: 60+ Years or (1 - 1-dose 75+ series) 11/25/2010 [facility]- SDOH Screenings 03/02/2025 [facility]-Adult SDOH Screenings 03/02/2025 09/02/2024 [facility]-Medicare Annual Wellness (AWV) 03/06/2025 03/06/2024 [facility]-Influenza Vaccine (#1) 04/22/202506/13, 04/28/2023, 05/13/2022, Additional history exists [facility]-Bone Density Scan 08/09/2025 08/09/2024 , 07/28/2023, 07/21/2022, Additional history exists [facility]-Depression Screening 09/13/2025 09/13/2024, 08/23 [facility]-DTaP,Tdap,and Td Vaccines (3 - Td or Tdap) 06/23/2027 06/23/2017, 08/22/2005 [facility]-Pneumococcal Vaccine: 50+ Years Completed 03/31/2023, 07/01/2014, 07/01/2011, Additional history exists [facility]-Zoster Vaccines Completed 11/05/2023, 04/28/2023, 06/22/2014 [id number] Vaccine Discontinued 06/13/2024, 05/26/2023, 05/13/2022, Additional history exists [facility]-Obesity Intervention Completed [...] this topic Medical Devices Implanted Type Area Aix System Administrator Device Identifier Shelf Expiration Date Model / Serial / Lot Stent Coronary Resolute [employer] Rx 3.00mm X 18mm - [id number] Implanted:Qty: 1 on 08/18/2021 by José Miguel WhiteheadReceiving Room ClerkMD at [facility] Appistry [id number] 06/11/2024 [id number] / / [id number] Procedures Procedure Name Priority Date/Time Associated [...] 2 MG/0.05ML Route: Intravitreal, Site: Left Eye [facility]: 79157-233-02, Lot: [id number], Expiration date: 03/10/2026 Post-op Post injection exam [...] entire duration. See resident note for details. Ainsley Coreas MD [facility] PROCEDURES Final Result * Dexa Bone Density (08/09/2024 10:10 AM EST) Anatomical Region Laterality Modality L-spine Radiographic Ciara ging Narrative 08/13/2024 9:10 PM EST [facility] - Bone & Mineral Metabolism Clinic [address] [place] [address] DXA Bone Densitometry Report: [Date of exam] BMD test performed using the eDiets.comXA DXA System (analysis version: 14.10) manufactured by [employer]. REFERRING PROVIDER: EMANUEL Yadav CLINICAL INFORMATION: PATIENT NAME: Ana Varela PATIENT [...] bone density change or response to treatment. 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
== END 2025-02-28 23:59 | disposition home or self-care (01) ==
LOC: RAD 08:36
PROVIDERS: PCP Internal Medicine; Visit Provider Physician Assistant Surgical
DX: S92.352D Displaced fracture of fifth metatarsal bone, left foot, subsequent encounter for fracture with routine healing (principal)
CPT/HCPCS: 73630